=== PATIENT | male | born 1975 | race Caucasian/White ===

== ENCOUNTER 2019-10-09 07:06 | Emergency (ER) | payer SELFPAY ==
[2019-10-09 07:24] VITALS: BP 192/112; PULSE 87; RESP 18; TEMP 36.7; O2SAT 97
--- NOTE | 2019-10-09 07:29 | ED.GENADULT ---
HPI - General Adult General Chief complaint: Neck Pain/Injury Stated complaint: neck pain History of Present Illness HPI narrative: Chele is a 44M with a PMH of HTN, TIA, and TX that presented to the ER with a painful boil on his left occiput. It began after a haircut 1 week ago. It has been becoming progressively larger and more painful. No fevers, chills, N/V CP or SOB or BAKER. Of note his BP is very elevated. He did not take his BP meds this morning. He also has family in town causing a lot of stress. Lastly he did not sleep with the stress/pain. No CP, SOB, decreased urination, or confusion. Related Data Home Medications Medication Instructions Recorded Confirmed fluoxetine 40 mg PO DAILY 10/09/19 10/09/19 hydrochlorothiazide 25 mg PO DAILY 10/09/19 10/09/19 losartan 100 mg PO DAILY 10/09/19 10/09/19 Allergies Allergy/AdvReac Type Severity Reaction Status Date / Time No Known Allergies Allergy Unverified 10/30/15 16:33 Review of Systems Constitutional: Constitutional: Reports as per HPI, Denies chills and Denies fever(s) Eyes: Eyes: Reports no additional eye complaints ENT: Reports system reviewed and no additional complaints, except as documented Cardiovascular: Cardiovascular: Denies chest pain, Denies rapid heart rate and Denies radiating jaw, neck or arm pain Respiratory: Respiratory: Reports no additional respiratory complaints Gastrointestinal: Gastrointestinal: Reports no additional gastrointestinal complaints Musculoskeletal: Musculoskeletal: Reports no additional musculoskeletal complaints Neurologic: Reports system reviewed and no additional complaints, except as documented Psychiatric: Psychiatric: Reports no additional psychiatric complaints Endocrine: Endocrine: Reports no additional endocrine complaints Hematologic/Lymphatic: Hematologic/Lymphatic: Reports no additional hematologic/lymphatic complaints Allergic/Immunologic: Allergic/Immunologic: Reports no additional allergic/immunologic complaints Exam Const: General: no acute distress and alert Orientation/consciousness: patient oriented x3 Limitations: No altered mental status HENMT: Other: Quarter sized, erythematous, raised, tender lesion on the left occiput without drainage. POCUS showed a small fluid collection and cobblestoning. Eyes: Conjunctivae: conjunctivae normal Pupils: Equal, round and reactive pupils present Neck: Neck: normal visual inspection Chest: Chest palpation & inspection: normal inspection of the chest Resp: Effort & Inspection: normal respiratory effort Other: speaks in complete sentences, no coughing or increased WOB. Cardio: Rate: regular rate Rhythm: regular rhythm Heart sounds: no murmurs Other: no lower extremity edema Skin: Other: No rashes except as above Neuro: General: patient oriented x3 and moves all extremities Other: Moves upper extremities normally, no strength of sensory deficits noted Extrem: General: normal to inspection Psych: Mental Status: mental status grossly normal Course Course Emergency Course: Chele was seen and evaluated. Skin lesion is likely a developing abscess from cellulitis vs folliculitis. It was lanced as below. BP was significanlty elevated. However, he no signs/symptoms of HTN emergency and had not been taking his meds and was in pain. It was emphasized to start taking his home BP meds as prescribed [place] and to return for CP, confusion, decreased urine output, BAKER, fevers or chills. Vital Signs Vital signs: Vital Signs Temperature 36.7 C 10/09/19 07:24 Pulse Rate 87 10/09/19 07:24 Respiratory Rate 18 10/09/19 07:24 Blood Pressure 192/112 H 10/09/19 07:24 Pulse Oximetry 97 10/09/19 07:24 Temperature 36.7 C 10/09/19 07:24 Pulse Rate 87 10/09/19 07:24 Respiratory Rate 18 10/09/19 07:24 Blood Pressure 192/112 H 10/09/19 07:24 Pulse Oximetry 97 10/09/19 07:24 Procedures Abscess I/D other: Date of Inc
[2019-10-09] MEDS: LIDO 1%/EPINEPHRINE 1:100,000 20 ML VIAL (07:35)
[2019-10-09] MEDS: KETOROLAC (*BKC) 60 MG/2 ML VIAL 30 MG IM (07:38)
[2019-10-09 07:54] VITALS: BP 183/110; PULSE 80; RESP 18; TEMP 36.6; O2SAT 98
== END 2019-10-09 08:01 | disposition home or self-care (01) ==
PROVIDERS: Emergency Provider Family Medicine; PCP Internal Medicine
DX: L03.90 Cellulitis, unspecified (principal); L73.9 Follicular disorder, unspecified
CPT/HCPCS: 10060; 90471; 99283; J1885

== ENCOUNTER 2020-03-16 13:16 | Outpatient (CLI) | payer SELFPAY ==
[2020-03-16 13:47] LABS: SARS-CoV-2 Ag Negative (Negative)
== END 2020-03-16 13:17 | disposition home or self-care (01) ==
LOC: CHSLAB 13:17
PROVIDERS: PCP Internal Medicine; Visit Provider Internal Medicine
DX: Z20.828 Contact with and (suspected) exposure to other viral communicable diseases (principal)
CPT/HCPCS: 87426

== ENCOUNTER 2020-04-03 20:07 | Emergency (ER) | payer SELFPAY ==
[2020-04-03 20:48] VITALS: BP 188/109; PULSE 97; RESP 20; TEMP 36.4; O2SAT 97
[2020-04-03 21:01] VITALS: BP 164/96
--- NOTE | 2020-04-03 21:48 | ED.SKABFB ---
HPI - Skin/Abscess/Foreign Bdy General Chief complaint: Skin/Abscess/Foreign Body Stated complaint: possible staph Time Seen by Provider: 04/03/20 21:49 Source: patient Mode of arrival: ambulatory Limitations: no limitations History of Present Illness HPI narrative: 45-year-old man comes in today complaining of itching and rash that developed after getting a tattoo on his forearm 9 days ago. Patient states that he got a tattoo on the back of his hand 19 days ago and about the time that to the arm tattoo was done, he developed a few pustular lesions where a red ink was used. Since then he has developed small blister-like lesions with clear fluid where the red ink was used and he states that he has had redness of his skin and tenderness particularly on his proximal forearm. He denies fever, nausea, vomiting or night sweats. He states he has a history of staph infections in his skin in the past. MD complaint: rash Onset (ago): day(s) (9) Tetanus up to date: unsure Location: LUE Severity: moderate Quality: sharp and pruritic Pain Consistency: constant Relieving factors: none Exacerbating factors: palpation Associated symptoms: denies other symptoms Treatments prior to arrival: other ( topical lidocaine spray and hot water) Related Data Home Medications Medication Instructions Recorded Confirmed fluoxetine [Prozac] 40 mg PO DAILY 10/09/19 04/03/20 hydrochlorothiazide 25 mg PO DAILY 10/09/19 04/03/20 losartan 100 mg PO DAILY 10/09/19 04/03/20 aspirin 81 mg PO DAILY 04/03/20 04/03/20 Allergies Allergy/AdvReac Type Severity Reaction Status Date / Time No Known Allergies Allergy Unverified 04/03/20 20:55 Review of Systems Constitutional: Constitutional: Denies chills and Denies fever(s) Cardiovascular: Cardiovascular: Denies chest pain and Denies radiating jaw, neck or arm pain Respiratory: Respiratory: Denies cough and Denies dyspnea Gastrointestinal: Gastrointestinal: Denies abdominal pain, Denies nausea and Denies vomiting Musculoskeletal: Musculoskeletal: Denies arthralgias and Denies joint swelling Integumentary/Breasts: Skin/Breast: Reports pruritus, Reports erythema and Reports rash Neurologic: Denies vertigo, Denies dizziness and Denies syncope Hematologic/Lymphatic: Hematologic/Lymphatic: Denies easy bleeding and Denies easy bruising Allergic/Immunologic: Allergic/Immunologic: Denies lip swelling, Denies throat swelling and Denies tongue swelling PMF Past Medical History Medical History Hypertension Surgical History Surgical History H/O hernia repair Social History Social History Tobacco type: smokeless tobacco Smokeless tobacco user: chewing tobacco Alcohol use details: occasionally Substance use: never Living arrangements: with family Gender identity (if verbalized by the patient): Male Exam Const: General: healthy appearing, no acute distress and alert Orientation/consciousness: patient oriented x3 Eyes: Conjunctivae: conjunctivae normal Pupils: Equal, round and reactive pupils present EOM: EOMs intact bilaterally Resp: Effort & Inspection: normal respiratory effort and not labored Auscultation: clear to auscultation bilaterally, no rales, no rhonchi and no wheezes Cardio: Rate: regular rate Rhythm: regular rhythm Heart sounds: no murmurs Skin: General skin exam: no jaundice and no pallor Other: erosive lesions on his left forearm tattoo or red ink was evidently used. There is no pus or discharge. There if you pustular vesicles however on the dorsum of the left hand and the left lateral arm just above the elbow. There is an area on the radial aspect of the left forearm which is indurated, mildly erythematous, warm but not fluctuant. Neuro: General: patient oriented x3, moves all extremities, no
[2020-04-03] MEDS: predniSONE 20 MG TABLET 60 MG PO (22:04)
[2020-04-03 22:19] VITALS: BP 170/100; PULSE 90; RESP 20; O2SAT 100
== END 2020-04-03 22:21 | disposition home or self-care (01) ==
PROVIDERS: Emergency Provider Emergency Medicine; PCP Internal Medicine
DX: T78.49XA Other allergy, initial encounter (principal); L03.90 Cellulitis, unspecified
CPT/HCPCS: 99283; A9270; J7512

== ENCOUNTER 2020-11-11 13:27 | Emergency (ER) | payer BC, SELFPAY ==
--- NOTE | 2020-11-11 13:28 | ED.SKABFB ---
HPI - Skin/Abscess/Foreign Bdy General Chief complaint: Skin/Abscess/Foreign Body Stated complaint: possible infection in R underarm Time Seen by Provider: 11/11/20 13:35 Source: patient Mode of arrival: ambulatory Limitations: no limitations History of Present Illness HPI narrative: Patient comes in with a moderately sore right underarm, which has been sore for the past 3 days. He shaved his armpits a few days ago [place]. He has developed a number of tender nodes in the right axilla. He says he had one small area that he was able to drain. His draining the area did not seem to resolve the issue or make this better, no modifying factors. I don't feel anything that needs to be drained now. Mostly tender nodes with almost no overlying erythema. Severity scale (1-10): 3 Quality: burning Pain Consistency: constant Relieving factors: none Exacerbating factors: none and movement Context: other (shaving armpit) Associated symptoms: denies other symptoms Treatments prior to arrival: attempted to drain pus at home Related Data Allergies Allergy/AdvReac Type Severity Reaction Status Date / Time No Known Allergies Allergy Unverified 04/03/20 20:55 Review of Systems Constitutional: Constitutional: Reports no additional constitutional complaints Eyes: Eyes: Reports no additional eye complaints ENT: Reports system reviewed and no additional complaints, except as documented Cardiovascular: Cardiovascular: Reports no additional cardiovascular complaints Respiratory: Respiratory: Reports no additional respiratory complaints Gastrointestinal: Gastrointestinal: Reports no additional gastrointestinal complaints Genitourinary: Genitourinary: Reports no additional male genitourinary complaints Musculoskeletal: Musculoskeletal: Reports no additional musculoskeletal complaints Integumentary/Breasts: Skin/Breast: Reports system reviewed and no additional complaints, except as docu Neurologic: Reports system reviewed and no additional complaints, except as documented Psychiatric: Psychiatric: Reports no additional psychiatric complaints Endocrine: Endocrine: Reports no additional endocrine complaints Hematologic/Lymphatic: Hematologic/Lymphatic: Reports no additional hematologic/lymphatic complaints Allergic/Immunologic: Allergic/Immunologic: Reports no additional allergic/immunologic complaints [facility] Past Medical History Medical History Hypertension Surgical History Surgical History H/O hernia repair Family History Family History (Updated 11/11/20 @ 14:22 by Elgin Clements MD) Mother Thyroid disease Father Diabetes mellitus Social History Social History Tobacco type: smokeless tobacco Smokeless tobacco user: chewing tobacco Alcohol use details: occasionally Substance use: never Gender identity (if verbalized by the patient): Male Exam Const: General: no acute distress and alert Orientation/consciousness: patient oriented x3 HENMT: Head: normal to inspection Ears: external ears normal and TM's normal bilaterally General nose exam: Normal external nose present Mouth: Yes Normal oral and palatal mucosa present Throat: posterior oropharynx normal Eyes: Conjunctivae: conjunctivae normal Neck: Neck: normal visual inspection Chest: Chest palpation & inspection: normal inspection of the chest Resp: Effort & Inspection: normal respiratory effort Auscultation: clear to auscultation bilaterally Cardio: Rate: regular rate Rhythm: regular rhythm GI: Auscultation: normal bowel sounds Back/Spine/Pelvis: Back: no CVA tenderness Skin: Other: He has an area under his right axilla that is tender with multiple nodes that are tender. Very little on the surface that has a tiny amount of erythema. He appears to have hidra
[2020-11-11 13:30] VITALS: BP 179/104; PULSE 92; RESP 16; TEMP 36.8; O2SAT 100
[2020-11-11] MEDS: cefTRIAXone 1 GM VIAL IM (13:56)
[2020-11-11 14:19] VITALS: BP 169/101; PULSE 90; RESP 12; TEMP 36.8; O2SAT 100
== END 2020-11-11 14:20 | disposition home or self-care (01) ==
PROVIDERS: Emergency Provider Emergency Medicine; PCP Internal Medicine
DX: L73.2 Hidradenitis suppurativa (principal)
CPT/HCPCS: 96372; 99283; J0696

== ENCOUNTER 2020-12-14 22:40 | Emergency (ER) | payer BC, SELFPAY ==
[2020-12-14 23:06] VITALS: BP 197/139; PULSE 107; RESP 20; TEMP 37.2; O2SAT 99
[2020-12-14] MEDS: LIDOCAINE HCL 1% LOCAL INJ 20 ML VIAL (23:10)
--- NOTE | 2020-12-14 23:30 | ED.WOUNDLAC ---
HPI - Wound/Laceration General Chief Complaint: Wound/Laceration Stated Complaint: cut arm open Source: patient Mode of arrival: ambulatory Limitations: no limitations History of Present Illness HPI narrative: patient presents after he was working at home and had a laceration to his left forearm mid forearm approximately a 5cm in length gaping currently not bleeding up-to-date with his tetanus has good range of motion in his arm and fingers with no numbness or tingling. Onset (ago): hour(s) Extremity Location: Left: forearm ( laceration 5cm in length) Place: home Patient tetanus UTD: Yes Context: accidental Associated symptoms: none Related Data Home Medications Medication Instructions Recorded Confirmed fluoxetine [Prozac] 40 mg PO DAILY 12/14/20 12/14/20 Allergies Allergy/AdvReac Type Severity Reaction Status Date / Time No Known Allergies Allergy Unverified 12/14/20 23:11 Review of Systems Review of Systems: All systems reviewed & are unremarkable except as noted in HPI and below PMFSH Past Medical History Medical History Hypertension Surgical History Surgical History H/O hernia repair Family History Family History Mother Thyroid disease Father Diabetes mellitus Social History Social History Tobacco type: smokeless tobacco Smokeless tobacco user: chewing tobacco Alcohol use details: occasionally Substance use: never Gender identity (if verbalized by the patient): Male Exam Const: General: no acute distress and alert Orientation/consciousness: patient oriented x3 HENMT: Head: normal to inspection Eyes: Conjunctivae: conjunctivae normal Pupils: Equal, round and reactive pupils present Neck: Neck: normal visual inspection Chest: Chest palpation & inspection: normal inspection of the chest Resp: Effort & Inspection: normal respiratory effort Auscultation: clear to auscultation bilaterally Cardio: Rate: regular rate Rhythm: regular rhythm GI: GI Palp: Yes Soft to palpation Urinary Catheter: Urinary Catheter: patent and draining Back/Spine/Pelvis: Back: no CVA tenderness Skin: Other: Gaping laceration 5cm in length her forearm Neuro: General: patient oriented x3 and moves all extremities Speech: normal speech Extrem: General: normal to inspection and no pedal edema Psych: Mental Status: mental status grossly normal Affect: normal affect Course Course Emergency Course: patient received sutures to his left forearm tolerated procedure well Vital Signs Vital signs: Vital Signs Temperature 37.2 C 12/14/20 23:06 Pulse Rate 107 H 12/14/20 23:06 Respiratory Rate 12/14/20 23:06 Blood Pressure 197/139 H 12/14/20 23:06 Pulse Oximetry 99 12/14/20 23:06 Temperature 37.2 C 12/14/20 23:06 Pulse Rate 107 H 12/14/20 23:06 Respiratory Rate 12/14/20 23:06 Blood Pressure 197/139 H 12/14/20 23:06 Pulse Oximetry 99 12/14/20 23:06 Procedures Laceration Laceration 1: Date: 12/14/20 Time: 23:33 Site: upper extremity Side (If applicable): left Size (cm): 5 Description: linear Depth: simple, single layer Local Anesthetic: lidocaine 1% Amount of anesthesia used (mL): 10 Pre-repair: wound explored and irrigated ====== Skin Level ====== Skin layer closed with: vicryl Size (cm): 3-0 ====== Subcutaneous Layer ====== ====== Muscle Layer ====== ====== Tendon Layer ====== Critical Care Time Critical Care Time Critical Care Time: No Discharge Plan Discharge Clinical Impression: Laceration Patient Disposition: Home, Self-Care Condition: Stable Instructions: Antibiotic Form, Laceration (ED) [place]
[2020-12-14 23:45] VITALS: BP 179/121
== END 2020-12-14 23:50 | disposition home or self-care (01) ==
PROVIDERS: Emergency Provider Emergency Medicine; PCP Internal Medicine
DX: S51.812A Laceration without foreign body of left forearm, initial encounter (principal); W45.8XXA Other foreign body or object entering through skin, initial encounter
CPT/HCPCS: 12002; 99282

== ENCOUNTER 2021-01-19 10:23 | Outpatient (CLI) | payer BC, SELFPAY ==
--- NOTE | ~2021-01-19 | XR_ITS ---
XR chest 2V DATE: 01/19/2021 11:05 INDICATION: Chest pain. Diaphoresis. Positive d-dimer. TECHNIQUE: PA and lateral views COMPARISON: 10/30/2015 PA and lateral chest FINDINGS: Mild cardiomegaly. There is prominence of the fissures. There are Natasha B-lines. No pulmonary consolidation or significant pleural effusion or pneumothorax is evident. IMPRESSION: Mild congestive heart failure including pulmonary fissure and subpleural edema Reviewed, dictated and finalized at location [facility]. IMPRESSION: Mild congestive heart failure including pulmonary fissure and subpl eural edema
[2021-01-19 10:43] LABS: Basophils Absolute Auto 0.05 K/mm3 (0.00-0.10); Basophils Percent Auto 0.5 % (0.0-1.0); Eosinophils Absolute Auto 0.14 K/mm3 (0.02-0.50); Eosinophils Percent Auto 1.4 % (1.0-6.0); Hematocrit 46.2 % (40.0-54.0); Hemoglobin 15.9 g/dL (14.0-18.0); Immature Granulocyte Absolute 0.04 K/mm3 (0.00-0.00); Immature Granulocyte Percent A 0.4 % (0.0-0.0); Lymphocytes Absolute Auto 2.16 K/mm3 (1.10-4.50); Lymphocytes Percent Auto 20.8 % (18.0-42.0); Mean Corpuscular HGB Conc 34.4 g/dL (32.0-36.0); Mean Corpuscular Hemoglobin 28.6 pg (27.0-31.0); Mean Corpuscular Volume 83.2 fL (78.0-102.0); Mean Platelet Volume 8.6 fl (8.7-11.0); Monocytes Absolute Auto 0.91 K/mm3 (0.10-0.90); Monocytes Percent Auto 8.8 % (2.0-11.0); Neutrophils Absolute Auto 7.1 K/mm3 (1.7-7.2); Neutrophils Percent Auto 68.1 % (50.0-70.0); Platelet Count Result 353 K/mm3 (150-420); Red Blood Count 5.55 M/mm3 (4.70-6.10); Red Cell Distribution Width 13.8 % (11.6-14.4); White Blood Count 10.4 K/mm3 (4.8-10.8)
--- NOTE | 2021-01-19 10:50 | ECG_ITS ---
Measurements Intervals [place] Rate: 107 P: 66 NM: 160 QRS: -64 QRSD: 124 T: 95 QT: 369 QTc: 494 Interpretive Statements SINUS TACHYCARDIA LEFT ATRIAL ENLARGEMENT INCOMPLETE RIGHT BUNDLE BRANCH BLOCK LEFT ANTERIOR FASCICULAR BLOCK BORDERLINE ST-T WAVE ABNORMALITY- LAT/HIGH LAT LEADS BASELINE ARTIFACT- I, II, III, V1, V4, V6 ABNORMAL ECG Electronically Signed On 01-19-2021 11:06:22 CDT by Camden Doyle D.O.
[2021-01-19 11:03] LABS: D Dimer 0.72 mg/L (0.19-0.50)
[2021-01-19 11:32] LABS: SARS-CoV-2 RNA PCR Negative (Negative)
[2021-01-19 11:41] LABS: Chloride 103 mmol/L (98-108); Potassium 3.1 mmol/L (3.5-5.1); Sodium 142 mmol/L (136-145)
[2021-01-19 11:42] LABS: Alanine Aminotransferase 84 U/L (16-63); Anion Gap 9 mmol/L (8-16); Aspartate Amino Transferase 40 U/L (15-37); Blood Urea Nitrogen 16 mg/dL (7-18); Calcium 8.5 mg/dL (8.5-10.1); Carbon Dioxide 30 mmol/L (21-32); Creatine Kinase 478 U/L (39-308); Estimated Glomerular Filt Rate 53; Glucose 84 mg/dL (70-99); Osmolality Calculated 294 mOsm/kg (285-295)
[2021-01-19 11:43] LABS: NT Pro B Type Natriuretic Pept 4457 pg/mL (0-125)
[2021-01-19 11:44] LABS: Albumin Level 3.7 g/dL (3.4-5.0); Alkaline Phosphatase 74 U/L (46-116); Cholesterol 134 mg/dL (0-200); HDL Direct 31 mg/dL (40-60); LDL Cholesterol Calculated 86 mg/dL (<130); Thyroid Stimulating Hormone 1.64 uIU/mL (0.36-3.74); Total Protein 7.1 g/dL (6.4-8.2); Triglycerides 86 mg/dL (0-150)
[2021-01-24 06:59] LABS: SARS-CoV-2 IgG <1.00 Index (<1.00)
== END 2021-01-19 10:24 | disposition home or self-care (01) ==
LOC: CHSLAB 10:25
PROVIDERS: PCP Internal Medicine; Visit Provider Internal Medicine
DX: Z00.00 Encounter for general adult medical examination without abnormal findings (principal); R06.00 Dyspnea, unspecified; R05.9 Cough, unspecified; Z20.822 Contact with and (suspected) exposure to COVID-19
CPT/HCPCS: 36415; 71046; 80053; 80061; 82550; 82553; 83880; 84443; 84484; 85025; 85380; 86769; 93005; C9803; U0003; U0005

== ENCOUNTER 2021-01-19 11:33 | Emergency (ER) | payer BC, SELFPAY ==
[2021-01-19] VITALS (13 sets, daily range): BP systolic 119–171; BP diastolic 92–127; PULSE 97–116; RESP 18–22; TEMP 36.4–36.9; O2SAT 20–99
--- NOTE | ~2021-01-19 | CT_ITS ---
EXAMINATION: CTA chest PE protocol DATE: 01/19/2021 12:18 INDICATION: Chest pain, diaphoresis. Positive d-dimer.. Stopped taking hypertensive medication 1-2 mo nths ago. TECHNIQUE: Computed tomography angiography (CTA) of the chest was performed with 100 mL Omnipaque-350 intravenous contrast timed to evaluate the pulmonary arteries. Coronal maximum intensity projection 3D-reconstructions were created by the technologist. Automated exposure control and iterative reconst ruction technique were employed. Exam dose: 853.36 mGy-cm total exam DLP. COMPARISON: 01/19/2021 2 view chest FINDINGS: There is diagnostic contrast enhancement of the pulmonary arteries and no evidence of pulmo nary embolism. There is cardiomegaly. No pericardial effusion. Minimal bilateral pleural effusions. Borderline aortic diameter. No hilar or mediastinal mass lesion or lymphadenopathy. There is interstitial prominence including Natasha B-lines and mild prominence of the fissures, consis tent with pulmonary interstitial and subpleural edema. Included skeletal structures are unremarkable. IMPRESSION: Congestive changes including pulmonary interstitial and subpleural edema and minimal ple ural effusions No evidence of pulmonary embolism Reviewed, dictated and finalized at [facility]. Reviewed, dictated and finalized at [facility]. IMPRESSION: Congestive changes including pulmonary interstitial and subpleural edema and minimal pleural effusions No evidence of pulmonary embolism
[2021-01-19] MEDS: ASPIRIN 325 MG ENTERIC TABLET PO (12:19)
[2021-01-19] MEDS: POTASSIUM CHLORIDE 20 MEQ TABLET 40 MEQ PO (12:22)
[2021-01-19] MEDS: METOPROLOL TARTRATE INJ 5 MG/5 ML VIAL 2.5 MG IV PUSH ×2 (12:24→14:10)
[2021-01-19 12:26] LABS: Base Excess ABG -0.5 mmol/L (0-2); Device NASAL CANNULA; Modified Allen's Test Pass; Oxygen Content ABG 21.4 %vol (16.0-22.0); Oxygen Saturation ABG 97.8 % (95-97); Oxyhemoglobin 97.2 % (94-100); PCO2 ABG 34.6 mmHg (35-45); Site Drawn RIGHT RADIAL; Total Hemoglobin 15.6 g/dL (12.0-18.0); pH ABG 7.44 (7.35-7.45)
--- NOTE | 2021-01-19 13:02 | PC.NURSE ---
update given to LOUIE jane
--- NOTE | 2021-01-19 13:18 | ECG_ITS ---
Measurements Intervals [place] Rate: 108 P: 70 IA: 156 QRS: 31 QRSD: 124 T: 73 QT: 420 QTc: 565 Interpretive Statements SINUS TACHYCARDIA POSSIBLE RIGHT ATRIAL ENLARGEMENT POSSIBLE LEFT ATRIAL ENLARGEMENT INTRAVENTRICULAR CONDUCTION DELAY BORDERLINE R WAVE PROGRESSION, ANTERIOR LEADS BORDERLINE T WAVE ABNORMALITY- HIGH LATERAL LEADS BASELINE ARTIFACT- II, III, AVR, AVL, AVF, V1, V5 ABNORMAL ECG Electronically Signed On 01-19-2021 14:28:21 CDT by Camden Doyle D.O.
[2021-01-19 13:59] LABS: Lactic Acid Reflex 1.4 mmol/L (0.4-2.0)
[2021-01-19 14:01] LABS: Troponin I 96.2 ng/L (0.00-60.4)
[2021-01-19] MEDS: FUROSEMIDE INJ 40 MG/4 ML VIAL IV PUSH (14:13)
--- NOTE | 2021-01-19 14:30 | PC.NURSE ---
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
--- NOTE | 2021-01-19 14:31 | ED.CHESTPAIN ---
HPI - Chest Pain General Chief Complaint: Chest Pain Stated Complaint: chest pain Time Seen by Provider: 01/19/21 11:35 Source: patient, RN notes reviewed and old records reviewed Mode of arrival: ambulatory Limitations: no limitations History of Present Illness MD complaint: other (mild Sob persistent and increasing) Onset (ago): day(s) (2) Timing of current episode: episodic, constant, rare, daily, weekly, monthly, stable, increasing, still present, now resolved and other Prior episodes: No Onset: during rest, during exertion and associated with drug use Pain location: substernal Pain radiation: none Severity: moderate Quality: tightness and other (SOB) Exacerbating factors: exertion Context: recent illness Associated symptoms: dyspnea and palpitations Risk Factors Coronary artery disease risk factors: smoking history and hypertension Related Data Home Medications Medication Instructions Recorded Confirmed No Home Medications 01/19/21 01/19/21 Allergies Allergy/AdvReac Type Severity Reaction Status Date / Time No Known Allergies Allergy Verified 01/19/21 12:38 Review of Systems Review of Systems: All systems reviewed & are unremarkable except as noted in HPI and below Cardiovascular: Cardiovascular: Reports chest pain Respiratory: Respiratory: Reports dyspnea PMFSH Past Medical History Medical History Hypertension SOB (shortness of breath) on exertion Surgical History Surgical History H/O hernia repair Family History Family History Mother Thyroid disease Father Diabetes mellitus Social History Social History Tobacco type: smokeless tobacco Smokeless tobacco user: chewing tobacco Alcohol use details: occasionally Substance use: never Gender identity (if verbalized by the patient): Male Exam Const: General: no acute distress, alert and diaphoretic Orientation/consciousness: patient oriented x3 HENMT: Head: normal to inspection Ears: external ears normal and TM's normal bilaterally General nose exam: Normal external nose present and Normal nares present Mouth: Yes moist mucous membranes Eyes: Conjunctivae: conjunctivae normal Pupils: Equal, round and reactive pupils present EOM: EOMs intact bilaterally Neck: Neck: normal visual inspection Chest: Chest palpation & inspection: normal inspection of the chest Resp: Effort & Inspection: tachypneic Auscultation: crackles Cardio: Rate: tachycardic GI: GI Palp: Yes Soft to palpation and No Tenderness to palpation present (GI) Percussion: Yes normal to percussion : General: Yes no CVA tenderness Testes: Testes normal Back/Spine/Pelvis: Back: no CVA tenderness Skin: General skin exam: normal color Rashes: no rashes Neuro: General: patient oriented x3, moves all extremities, no meningeal signs, no focal motor deficits and CN's II-XI intact bilaterally Extrem: General: normal to inspection and no pedal edema Psych: Mental Status: mental status grossly normal Affect: normal affect Attitude: cooperative Thought content: Yes Normal thought content present Course Course Emergency Course: pt was ill in the ED with dyspnea and tachycardia. Reevaluation(s) Reevaluation #1: pt was dyspneic and tachycardic. Date: 01/19/21 Time: 12:40 Vital Signs Vital signs: Vital Signs Pulse Rate 116 H 01/19/21 11:37 Respiratory Rate 21 H 01/19/21 11:37 Blood Pressure 171/127 H 01/19/21 11:37 Pulse Oximetry 99 01/19/21 11:37 Temperature 36.4 C 01/19/21 11:45 Pulse Rate 112 H 01/19/21 14:10 Respiratory Rate 22 H 01/19/21 12:30 Blood Pressure 142/112 H 01/19/21 12:30 Pulse Oximetry 98 01/19/21 12:30 MDM - Chest Pain Differential Diagnosis Differential diagnosis: Likely a
[2021-01-19] MEDS: NITROGLYCERIN SL 0.4 MG TABLET SUBLINGUAL (14:36)
[2021-01-19 15:45] LABS: Magnesium 2.1 mg/dL (1.8-2.4)
[2021-01-19] MEDS: METOPROLOL TARTRATE INJ 5 MG/5 ML VIAL IV PUSH (16:49)
== END 2021-01-19 18:50 | disposition short-term general hospital (02) ==
PROVIDERS: Emergency Provider Emergency Medicine; PCP Internal Medicine
DX: I50.41 Acute combined systolic (congestive) and diastolic (congestive) heart failure (principal); R79.9 Abnormal finding of blood chemistry, unspecified
CPT/HCPCS: 36415; 36600; 71275; 82805; 83605; 83735; 84484; 93005; 96374; 96375; 96376; 99285; A9270; J1940; Q9967

== ENCOUNTER 2021-01-19 20:47 | Inpatient (IN) | payer BC, SELFPAY ==
[2021-01-19] VITALS (9 sets, daily range): BP systolic 144–149; BP diastolic 104–119; PULSE 93–105; RESP 18–22; TEMP 36.6–37.1; O2SAT 95–98; BMI 33.0
[2021-01-19] MEDS: NITROGLYCERIN SL 0.4 MG TABLET SUBLINGUAL ×3 (20:22→20:36)
[2021-01-19] MEDS: HEPARIN SODIUM 5,000 UNITS/ML VIAL 4000 UNITS IV PUSH (20:45)
[2021-01-19] MEDS: MORPHINE SULFATE (*CRX) 2 MG/ML INJ IV PUSH ×2 (20:45→21:25)
[2021-01-19 20:49] LABS: Basophils Percent Auto 0.3 % (0.2-1.2); Eosinophils Absolute Auto 0.2 K/mm3 (0-0.3); Eosinophils Percent Auto 1.3 % (0-4.4); Hematocrit 44.1 % (42.0-52.0); Hemoglobin 15.5 g/dL (14.0-18.0); Immature Granulocyte Absolute 0.04 K/mm3 (0.00-0.031); Immature Granulocyte Percent A 0.3 % (0-0.5); Lymphocytes Percent Auto 28.3 % (18.3-44.2); Mean Corpuscular HGB Conc 35.1 g/dl (32-36); Mean Corpuscular Hemoglobin 29.2 pg (26-34); Mean Corpuscular Volume 83.1 fl (80-100); Mean Platelet Volume 8.7 fl (7.4-10.4); Monocytes Absolute Auto 0.9 K/mm3 (0.1-0.6); Monocytes Percent Auto 7.4 % (2.6-8.5); Neutrophils Absolute Auto 7.5 K/mm3 (1.3-6.7); Neutrophils Percent Auto 62.4 % (45.5-73.1); Platelet Count Result 369 k/mm3 (150-375); Red Blood Count 5.31 M/mm3 (4.6-6.20); Red Cell Distribution Width 14.1 % (11.5-14.5)
[2021-01-19] MEDS: NITROGLYCERIN OINTMENT 1 INCH DOSE TRANSDERM (20:49)
--- NOTE | 2021-01-19 20:49 | PM.IMHP ---
H&P: HPI History of Present Illness Date/Time: 01/19/21 20:49 this is a 45-year-old male patient who has a past medical history of hypertension. The patient stated he has not taken any of his medication for couple months. The patient stated that he was trying to get his losartan feel today and was told that he needed to be seen. The patient stated that he had some labs drawn today and was told to go to the emergency room because they were abnormal. The patient's D-dimer was noted to be 0.72. Creatinine 1.44. First troponin was 9.0 on a scale from 0-60.4 and 2nd troponin was 96.2. The patient was a direct admit from [facility] per Dr. Morley. The patient's blood pressure was significantly elevated. It was reported that the patient did receive nitroglycerin at [facility]. The patient stated that he was short of breath and has been short of breath for quite some time. The patient stated he was told to go to the ER at [place] because he was having a heart attack. Cardiac allergy had been notified prior to coming to [facility]. The patient stated that he was not given any aspirin at [facility]. When the patient came to IMU from [place] the patient was initially pain-free. However the nurse to me that the patient started to have severe crushing midsternal chest pain. The patient was diaphoretic and nauseated. We repeated a stat EKG and it looks like the patient has ST elevation in leads V3 through V6. I sent the EKG to ER and my collaborative. I also called Dr. Albright and sent pictures of the EKG. A STEMI alert was called. The patient was given IV morphine, 3 baby aspirin and IV heparin 4000 units. Patient stated that this helped. The blending supervisor was notified in ER was sent the EKG. The patient is being admitted for inpatient status on the date of service of 01/19/2021. Chief Complaint: Chest pain Review of Systems Review of Systems: All systems reviewed & are unremarkable except as noted in HPI and below Constitutional: Constitutional: Reports as per HPI and Reports no additional constitutional complaints Eyes: Eyes: Reports as per HPI and Reports no additional eye complaints ENT: Reports system reviewed and no additional complaints, except as documented and Reports Normal hearing present Cardiovascular: Cardiovascular: Reports no additional cardiovascular complaints Respiratory: Respiratory: Reports no additional respiratory complaints and Reports no additional respiratory complaints Gastrointestinal: Gastrointestinal: Reports as per HPI and Reports no additional gastrointestinal complaints Musculoskeletal: Musculoskeletal: Reports no additional musculoskeletal complaints Integumentary/Breasts: Skin/Breast: Reports system reviewed and no additional complaints, except as docu and Reports as per HPI Neurologic: Reports system reviewed and no additional complaints, except as documented, Reports as per HPI and Reports Normal hearing present Psychiatric: Psychiatric: Reports no additional psychiatric complaints and Reports as per HPI Endocrine: Endocrine: Reports no additional endocrine complaints Hematologic/Lymphatic: Hematologic/Lymphatic: Reports no additional hematologic/lymphatic complaints Allergic/Immunologic: Allergic/Immunologic: Reports no additional allergic/immunologic complaints [facility] Past Medical History Medical History (Updated 01/19/21 @ 21:07 by Maureen Cruz NP) Hypertension SOB (shortness of breath) on exertion Surgical History Surgical History (Updated 01/19/21 @ 20:55 by Maureen Cruz NP) H/O hernia repair H/O knee surgery On the right Family History Family History (Updated 01/19/21 @ 20:56 by Maureen Cruz NP) Mother Thyroid disease Father Diabetes mellitus Cancer Social History Social History (Updated 01/19/21 @ 21:01 by Maureen Cruz NP) Social History: The patient is and has 2 children. 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 The patient is
[2021-01-19 21:09] LABS: Alanine Aminotransferase 72 U/L (4-50); Albumin Level 4.1 g/dL (3.5-5.1); Alkaline Phosphatase 68 U/L (38-126); Anion Gap 10 mmol/L (8-16); Aspartate Amino Transferase 51 U/L (17-59); Bilirubin,Total 1.3 mg/dL (0.2-1.3); Blood Urea Nitrogen 15 mg/dL (9-20); Calcium 8.7 mg/dL (8.4-10.2); Carbon Dioxide 26 mmol/L (22-30); Chloride 103 mmol/L (98-107); Estimated Glomerular Filt Rate > 60; Glucose 124 mg/dL (65-110); Potassium 3.5 mmol/L (3.4-5.0); Sodium 139 mmol/L (137-145)
--- NOTE | 2021-01-19 21:10 | ADMGEN ---
This patient, Chele Roberts, was admitted to IMU Room 232-01 on 01/19/21 at 1920. Patient/family oriented to hospital policies and general routines including ID bracelet, bed and alarms, visiting hours, pain management, procedures, bathroom and other care routines, personal items, smoking policy, room service/diet, and visiting hours. Information on how to activate the Rapid Response Team has been discussed. Patient/Family are encouraged to report perceived risks to care and to ask questions if they do not understand what they are told or what they should do.
--- NOTE | 2021-01-19 21:17 | PC.NURSE ---
Patient called me in to the room at 2014 stating he was having 5/10 chest pain, sudden onset with diaphoresis and shortness of breath. Maureen Cruz COAT PADDER here. Stat EKG done and shows ST elevation in V3-V6. Ntg SL given at 2021 with a B/P 149/115, HR 95, O2 sat 97% on room air. Maureen Cruz COAT PADDER notified the can stacker backshoe person with these findings.
[2021-01-19 21:24] LABS: Troponin I 0.073 ng/mL (0.000-0.034)
--- NOTE | 2021-01-19 21:24 | PC.NURSE ---
at 2026, continues to have 5/10 chest pain. B/P 149/111, HR 96, O2 sat 97%. Ntg SL given.
--- NOTE | 2021-01-19 21:25 | WPDMODSED ---
Moderate Sedation Note-Pt Data Patient Data Allergies Allergy/AdvReac Type Severity Reaction Status Date / Time No Known Allergies Allergy Verified 01/19/21 12:38 Home Medications Medication Instructions Recorded Confirmed Type No Home Medications 01/19/21 01/19/21 History Current Medications: Active Medications Morphine Sulfate (Morphine Sulfate (*Crx) 2 Mg/Ml Inj) 2 mg IV PUSH Q4H PRN PRN Reason: Pain Rated 7-10 Morphine Sulfate (Morphine Sulfate (*Crx) 2 Mg/Ml Inj) 2 mg IV PUSH Q30M PRN PRN Reason: Pain Rated 7-10 Nitroglycerin (Nitroglycerin Ointment 1 Inch Dose) 1 inch TRANSDERM Q6HR JUMANA Last Admin: 01/19/21 20:49 Dose: 1 inch Documented by: Nitroglycerin (Nitroglycerin Sl 0.4 Mg Tablet) 0.4 mg SUBLINGUAL Q5MIN PRN PRN Reason: Chest Pain Ondansetron HCl (Ondansetron Inj 4 Mg/2 Ml Vial) 4 mg IV PUSH Q6H PRN PRN Reason: Nausea And Vomiting Sedation/Anesthesia: No previous sedation/anesthesia problems (including family history). [facility] Past Medical History Medical History Hypertension SOB (shortness of breath) on exertion Surgical History Surgical History H/O hernia repair H/O knee surgery On the right Family History Family History Mother Thyroid disease Father Diabetes mellitus Cancer Social History Social History (Updated 01/19/21 @ 21:01 by Maureen Cruz NP) Social History: The patient is and has 2 children. 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 The patient is a full code. He stated that his would be the durable power assistant district attorney for healthcare. The patient uses chewing tobacco. He does not use any alcohol or illicit drugs. Tobacco type: smokeless tobacco Smokeless tobacco user: chewing tobacco Alcohol use details: occasionally Substance use: never Gender identity (if verbalized by the patient): Male Mod Sed Physical Exam Physical Exam Pre Procedural Exam: Normal: Appearance, Eyes, Ears, Nose, Neck, Throat, Airway, Lungs, Heart Size, Heart Rate, Heart Rhythm, Neuro Exam, Abdomen, Liver, Kidneys, Spleen, Breasts, Genitalia, Extremities and Skin Hours since solid foods: 8 Hours since liquid intake: 8 Mallampati Classification: class 1 Internal Medicine - PN: Obj Da Vital Signs Vital Signs: Vital Signs - 24 hr 01/19/21 19:25 01/19/21 20:20 Temperature 37.1 C 36.8 C Pulse Rate 105 H 102 H Respiratory Rate 18 20 Blood Pressure 149/119 H 149/115 H Pulse Oximetry 98 98 Meds/Results Medications: Active Medications Generic Name Dose Route Start Last Admin Trade Name Freq PRN Reason Stop Dose Admin Morphine Sulfate 2 mg 01/19/21 20:47 Morphine Sulfate (*Crx) 2 Mg/Ml Inj IV PUSH Q4H PRN Pain Rated 7-10 Morphine Sulfate 2 mg 01/19/21 21:21 Morphine Sulfate (*Crx) 2 Mg/Ml Inj IV PUSH Q30M PRN Pain Rated 7-10 Nitroglycerin 1 inch 01/19/21 20:20 01/19/21 20:49 Nitroglycerin Ointment 1 Inch Dose TRANSDERM 1 inch Q6HR JUMANA Administration Nitroglycerin 0.4 mg 01/19/21 20:25 Nitroglycerin Sl 0.4 Mg Tablet SUBLINGUAL Q5MIN PRN Chest Pain Ondansetron HCl 4 mg 01/19/21 20:47 Ondansetron Inj 4 Mg/2 Ml Vial IV PUSH Q6H PRN Nausea And Vomiting Labs CBC & Chem 7: 01/19/21 20:43 01/19/21 20:43 Labs: Laboratory Results - last 24 hr 01/19/21 01/19/21 01/19/21 20:43 20:43 20:43 WBC 12.0 H RBC 5.31 Hgb 15.5 Hct 44.1 MCV 83.1 MCH 29.2 MCHC 35.1 RDW 14.1 Plt Count 369 MPV 8.7 Immature Gran % (Auto) 0.3 Neut % (Auto) 62.4 Lymph % (Auto) 28.3 [place] % (Auto) 7.4 Eos % (Auto) 1.3 Baso % (Auto) 0.3 Lymph # (Auto) 3.40 H [place] # (Auto) 0.9 H Eos # (Auto) 0.2 Baso # (Auto) 0.0 Abs Immat Gran (auto) 0.04 H Absolute Neuts
--- NOTE | 2021-01-19 21:25 | PC.NURSE ---
at 203, continues to have 4/5 chest pain with diaphoresis and bilateral arm numbness. NTG SL given.
--- NOTE | 2021-01-19 21:26 | WPDHPUPDATE1 ---
History and Physical Update Update Date/Time: 01/19/21 21:26 History and Physical has been reviewed, including an updated exam of the patient. There are NO changes in the patient's condition. Risks, benefits, and alternatives have been discussed and questions answered. Patient agrees to proceed with procedure.
--- NOTE | 2021-01-19 21:27 | WPDCARDPROC ---
Cardiac Cath Procedure Note Date of procedure:: 01/19/21 Performing physician:: Antonio Gray MD Date of service 01/19/2021 Indication:: anterior STEMI Brief clinical history:: 45-year-old patient history of diabetes, hypertension CHF postop taking his medicines. Apparently he went to get his losartan refilled and was complaining of shortness of breath. Blood work was done showed elevated troponins and elevated creatinine. Was told to go to the emergency room at [place]. His blood pressure there was significantly elevated as well. He was transferred to [facility] and then on arrival here he started to have central crushing chest pain. EKG was done shows anterior ST elevation which was changed from earlier EKGs. Elevated D-dimer Procedure Procedure performed:: 1-Moderate sedation that started at 2136 pm and ended at 2229 pm total duration 53 minutes using 2mg of Versed and 75mcg fentanyl. The registered nurse was luis su. 2-Selective left and right coronary angiogram. 3-Deployment of a drug-eluting stent 3 x 23 Xience at the junction of the mid to distal LAD. Deployment under nominal pressure for 25 seconds. 3-Left heart catheterization with measurement of LVEDP and measurement of gradient across aortic valve. 4-Right common femoral arterial angiogram. 5-Deployment of 6 [place] Angio-Seal. Sedation/Medication given:: Moderate sedation. Access site:: Right common femoral artery. Estimated blood loss:: 10cc Procedure note:: After informed consent patient was brought in to laboratory apparatus glass grinder with the was draped and prepped in usual manner. Moderate sedation was given and the right groin was infiltrated using 1% lidocaine. Five [place] sheath was obtained using micropuncture needle and the modified Seldinger technique. Selective left coronary angiogram was done using JL4 catheter with the tip of the catheter placed in the left main coronary artery. After that we went with a guide catheter CLS 3.5. I tried to wire the LAD using a luge coronary wire without success. Then after that used Floor Coverer 150 wire and managed to wire the LAD with difficulty. I had to create 3 cares on the wire to selectively pass it through the LAD. Wire was passed to distal LAD. Balloon angioplasty of distal LAD was done using 2.5 x 15 balloon with 3 inflations each under nominal pressure for 25 seconds. Then deployed a drug-eluting stent 3 x 23 Xience under normal pressure for 25 seconds. After that I noticed that there is total occlusion of the distal most end of the LAD and at that time i.e. just past the stent balloon without inflating it to the distal LAD and that managed to open up the artery. I suspect that there was a clot that has migrated to the distal LAD.Selective right coronary angiogram was done using JR4 catheter with the tip of the catheter placed to the right coronary artery. After that 5 [place] pigtail catheter was advanced across the aortic valve into the left ventricle with measurement of LVEDP and measurement of gradient across aortic valve. Right common femoral arterial angiogram was done. Findings:: 1- left coronary artery is a large artery that divides into large LAD, large circumflex artery A large ramus. Left main is free of disease 2- left anterior descending artery is a large artery that runs and wraps around the apex. it is totally occluded at the junction of the mid to distal segment with ANAYA flow 0. In the mid segment there is a diffuse 30% plaque. There is a very large diagonal branch takes off from the LAD right after it takes off from the left main 3- leftcircumflex artery is a large artery. in the mid segment gives rise to a large OM1 branch that looks unremarkable. Left circumflex artery after the OM is relatively small and has 70% lesion and then another 60% lesion distally. 4- The ramus intermedius is medium in size due with minimal irregularities. 4- right coronary artery is Large artery and dominant and has minimal irregularities. 5- LV
--- NOTE | 2021-01-19 21:27 | PC.NURSE ---
at 2044, Heparin 4000u IVP given with 3 baby ASA and Morphine 2 MG IVP per orders.
--- NOTE | 2021-01-19 21:28 | WPDCARDPROC ---
Cardiac Cath Procedure Note Date of procedure:: 01/19/21 Performing physician:: Antonio Gray MD Indication:: anterior STEMI Procedure Procedure performed:: 1-Moderate sedation that started at and ended at using mg of Versed and mg fentanyl. The registered nurse was 2-Selective left and right coronary angiogram. 3-Left heart catheterization with measurement of LVEDP and measurement of gradient across aortic valve. 4-Right common femoral arterial angiogram. 5-Deployment of 6 [place] Angio-Seal. Sedation/Medication given:: Moderate sedation. Access site:: Right common femoral artery. Estimated blood loss:: 10cc Procedure note:: After informed consent patient was brought in to denture laboratory technician with the was draped and prepped in usual manner. Moderate sedation was given and the right groin was infiltrated using 1% lidocaine. Five [place] sheath was obtained using micropuncture needle and the modified Seldinger technique. Selective left coronary angiogram was done using JL4 catheter with the tip of the catheter placed in the left main coronary artery. Selective right coronary angiogram was done using JR4 catheter with the tip of the catheter placed to the right coronary artery. After that 5 [place] pigtail catheter was advanced across the aortic valve into the left ventricle with measurement of LVEDP and measurement of gradient across aortic valve. Right common femoral arterial angiogram was done. Findings:: 1- left coronary artery is a large artery that divides into large LAD, large circumflex artery. Left main is 2- left anterior descending artery is a large artery that runs and wraps around the apex. 3- leftcircumflex artery is a large artery 4- right coronary artery is 5- LVEDP was and no gradient across aortic valve. 6- opening arterial pressure was and closing pressure was 7- right femoral artery angiogram shows no significant disease in the right common femoral artery.
--- NOTE | 2021-01-19 21:28 | PC.NURSE ---
at 2054. Patient transferred to ICU 10 via bed. Awaiting on cardiac cath lab technologist to arrive.
--- NOTE | 2021-01-19 21:30 | PC.NURSE ---
at 2114, Ashanti Roberts () notified of changes. All questions answered.
[2021-01-19 21:44] LABS: Partial Thromboplastin Time 28.8 SECONDS (22.3-36.8); Prothrombin Time 13.1 Seconds (11.1-14.7)
--- NOTE | 2021-01-19 22:58 | PM.CNCAR ---
Assessment and Plan Additional Plan 1- Anterior STEMI with totally occluded distal LAD status post stenting. 2- elevated LVEDP. 3- history of hypertension noncompliant with medications. 4- history of CHF not compliant with medications. 5- history of diabetes not compliant with medications. this is 45-year-old patient noncompliant who presents to the hospital because of abnormal blood work. Was having shortness of breath on exertion. Upon arrival to [facility] and was found to have chest pain that started on arrival here and the EKG confirmed anterior ST elevations. Was rushed to the [facility] and received drug-eluting stent to totally occluded distal LAD. was found to have elevated LVEDP. - Will continue aspirin and Brilinta. - aggressive risk factor modification for CAD. - administer the IV Lasix 40 mg x 1. - continue normal saline at 75 cc an hour for a total of 1 L to wash the dye. - high intensity statin. - I will hold off starting him on hydrochlorothiazide and losartan because of concern about kidney function. We will start him overnight on Norvasc and Coreg. - echocardiogram. History of Present Illness History of Present Illness Consult date/time: date of nydemrm61/08/21 22:58 Requesting physician: Maureen Cruz NP Consult reason: chest pain Reason For Visit: CHF Narrative: 45-year-old patient history of diabetes, hypertension CHF not compliant with taking his medicines. Apparently he went to get his losartan refilled and was complaining of shortness of breath. Blood work was done showed elevated troponins and elevated creatinine. Was told to go to the emergency room at [place]. His blood pressure there was significantly elevated as well. He was transferred to [facility] and then on arrival here he started to have central crushing chest pain. EKG was done shows anterior ST elevation which was changed from earlier EKGs. Elevated D-dimer. was taken to the quality lab [facility]oc where the distal LAD was totally occluded and received drug-eluting stent at the junction of the mid to distal segment using 3 x 23 drug-eluting stent. He does have Occlusive disease in the distal left circumflex artery that is relatively small in size. elevated LVEDP at 40 mm Hg. LV angiogram was not done because of significant dye use. Review of Systems Constitutional: Constitutional: Denies chills, Reports fatigue, Denies fever(s), Denies poor appetite and Reports weakness Eyes: Eyes: Denies eye discharge, Denies loss of vision, Denies eye pain and Denies photophobia ENT: Denies dizziness, Denies epistaxis, Denies nasal congestion and Denies sore throat Cardiovascular: Cardiovascular: Reports chest pain, Reports diaphoresis, Denies syncope, Denies pedal edema, Denies leg edema, Denies palpitations, Denies dyspnea, Denies dyspnea on exertion and Denies orthopnea Respiratory: Respiratory: Denies cough, Denies dyspnea, Reports dyspnea on exertion and Denies wheezing Gastrointestinal: Gastrointestinal: Denies abdominal pain, Denies diarrhea, Denies nausea and Denies vomiting Genitourinary: Genitourinary: Denies hematuria, Denies genital lesions and Denies dysuria Musculoskeletal: Musculoskeletal: Denies arthralgias, Denies joint swelling and Denies numbness Integumentary/Breasts: Skin/Breast: Denies pruritus and Denies rash Neurologic: Denies dizziness, Denies syncope, Denies loss of vision and Denies numbness Psychiatric: Psychiatric: Denies anxiety and Denies depression Endocrine: Endocrine: Denies cold intolerance, Denies heat intolerance and Denies palpitations Hematologic/Lymphatic: Hematologic/Lymphatic: Denies easy bleeding and Denies easy bruising Allergic/Immunologic: Allergic/Immunologic: Denies urticaria and Denies wheezing PMFSH Past Medical History Medical History Hypertension SOB (shortness of breath) on exertion Surgical History Surgical History (Reviewed
--- NOTE | 2021-01-19 23:13 | ECG_ITS ---
Measurements Intervals [place] Rate: 99 P: 61 SD: 199 QRS: -31 QRSD: 125 T: 53 QT: 401 QTc: 515 Interpretive Statements SINUS RHYTHM POSSIBLE LEFT ATRIAL ENLARGEMENT LEFT AXIS DEVIATION INTRAVENTRICULAR CONDUCTION DELAY DELAYED PRECORDIAL R/S TRANSITION ANTEROLATERAL ST ELEVATION MYOCARDIAL INJURY- ACUTE SUBTLE ST ELEVATION IN HIGH LATERAL LEADS BASELINE ARTIFACT- II, III, AVF, V2 ABNORMAL ECG Electronically Signed On 01-20-2021 8:28:41 CDT by Camden Doyle D.O.
--- NOTE | 2021-01-19 23:36 | PC.NURSE ---
sheri called and updated per patient condition.
[2021-01-20] VITALS (21 sets, daily range): BP systolic 129–157; BP diastolic 91–116; PULSE 85–117; RESP 14–23; TEMP 36.6–37; O2SAT 95–100
--- NOTE | 2021-01-20 | ECHO_ITS ---
Patient Info Name: Chele Roberts Age: 45 years : 1975 Gender: Male Ht: 70 in Wt: 230 lbs BSA: 2.30 m2 HR: 94 bpm BP: 148 / 104 mmHg Heart Rhythm: Sinus Rhythm Technical Quality: Good Exam Date: 01/20/2021 8:10 AM [facility] 10 Patient Status: Inpatient Admit Date: 01/19/2021 Staff Ordering Physician: Maureen Cruz NP Sanding Machine Tender: Karen Bailey RDCS Attending Provider: Gaye Mcdonald MD Referring Physician: Anthony MACKAY; Exam Type: CA echo doppler color flow Study Info Indications - s/p stemi cad s/p cath elevated trop chest pain Complete two-dimensional, color flow and Doppler transthoracic echocardiogram is performed. Summary 1. Complete two-dimensional, color flow and Doppler transthoracic echocardiogram is performed. 2. Left ventricular chamber dimension is severely enlarged. 3. Left ventricular systolic function is severely reduced, estimated at 25-30% with akinesis of the apex, apical lateral, apical anterior, apical septal, mid anterior, and mid anterolateral tang. . 4. There is mildly increased left ventricular wall thickness. 5. Left atrial chamber dimension is severely enlarged. 6. Right atrial chamber dimension is moderately enlarged. 7. There is trace tricuspid valve regurgitation. 8. Mild pulmonary hypertension, estimated pulmonary arterial systolic pressure is 35 mmHg. 9. There is mild mitral valve regurgitation. Left Ventricle Left ventricular chamber dimension is severely enlarged. Left ventricular systolic function is severely reduced, estimated at 25-30% with akinesis of the apex, apical lateral, apical anterior, apical septal, mid anterior, and mid anterolateral tang. . There is mildly increased left ventricular wall thickness. The left ventricular diastolic function is grade II diastolic dysfunction. There is no thrombus visualized in the left ventricle. Right Ventricle Right ventricular chamber dimension is normal. Right ventricular systolic function is normal. Left Atria Left atrial chamber dimension is severely enlarged. Right Atria Right atrial chamber dimension is moderately enlarged. Aortic Valve The aortic valve is not well visualized. There is no aortic valve stenosis. There is no aortic valve regurgitation. Pulmonic Valve The pulmonic valve is normal. There is trace pulmonic regurgitation. Mitral Valve The mitral valve has normal leaflets. There is mild mitral valve regurgitation. Tricuspid Valve The tricuspid valve leaflets are normal. There is trace tricuspid valve regurgitation. Mild pulmonary hypertension, estimated pulmonary arterial systolic pressure is 35 mmHg. Pericardium/Pleural The pericardium appears normal. There is no pericardial effusion. Inferior Vena Cava Dilated inferior vena cava with <50% collapse upon inspiration consistent with elevated right atrial pressure, 10 mmHg. Aorta The aortic root size at the sinus of Valsalva is normal. There is mild aortic atherosclerosis. Left Ventricular Outflow Tract Name Value Normal LVOT 2D LVOT Diameter 2.2 cm LVOT Doppler
[2021-01-20] MEDS: SODIUM CHLORIDE 0.9% IV 1,000 ML 75 ML IV CONT (00:17)
[2021-01-20] MEDS: FUROSEMIDE INJ 40 MG/4 ML VIAL IV PUSH ×3 (00:17→19:32)
[2021-01-20 00:34] LABS: Hemoglobin A1C 5.5 % (<5.7)
[2021-01-20] MEDS: carvediloL 3.125 MG TABLET PO ×2 (01:48→21:52)
[2021-01-20] MEDS: amLODIPine BESYLATE 5 MG TABLET PO (03:19)
--- NOTE | 2021-01-20 04:14 | PC.NURSE ---
This patient, Chele Roberts, was received from [facility] on 01/19/21 at 2055. Patient/family oriented to unit policies and routines
[2021-01-20 04:29] LABS: Basophils Absolute Auto 0.1 K/mm3 (0.0-0.1); Basophils Percent Auto 0.5 % (0.2-1.2); Eosinophils Absolute Auto 0.1 K/mm3 (0-0.3); Eosinophils Percent Auto 1.1 % (0-4.4); Hematocrit 44.2 % (42.0-52.0); Hemoglobin 15.5 g/dL (14.0-18.0); Immature Granulocyte Absolute 0.05 K/mm3 (0.00-0.031); Immature Granulocyte Percent A 0.5 % (0-0.5); Lymphocytes Absolute Auto 2.38 K/mm3 (0.9-3.2); Mean Corpuscular HGB Conc 35.1 g/dl (32-36); Mean Corpuscular Hemoglobin 28.9 pg (26-34); Mean Corpuscular Volume 82.5 fl (80-100); Mean Platelet Volume 8.8 fl (7.4-10.4); Monocytes Absolute Auto 0.8 K/mm3 (0.1-0.6); Neutrophils Absolute Auto 6.9 K/mm3 (1.3-6.7); Neutrophils Percent Auto 66.9 % (45.5-73.1); Platelet Count Result 333 k/mm3 (150-375); Red Blood Count 5.36 M/mm3 (4.6-6.20); Red Cell Distribution Width 14.1 % (11.5-14.5); White Blood Count 10.3 K/mm3 (4.5-10.0)
[2021-01-20 04:47] LABS: Lactic Acid Reflex 1.3 mmol/L (0.7-2.1)
[2021-01-20 04:53] LABS: Alanine Aminotransferase 76 U/L (4-50); Alkaline Phosphatase 66 U/L (38-126); Anion Gap 9 mmol/L (8-16); Aspartate Amino Transferase 151 U/L (17-59); Bilirubin,Total 1.6 mg/dL (0.2-1.3); Blood Urea Nitrogen 14 mg/dL (9-20); Calcium 8.5 mg/dL (8.4-10.2); Carbon Dioxide 24 mmol/L (22-30); Chloride 104 mmol/L (98-107); Estimated CRCL calculation 98 ml/min; Estimated Glomerular Filt Rate > 60; Glucose 124 mg/dL (65-110); Lactate Dehydrogenase 809 U/L (313-618); Potassium 3.1 mmol/L (3.4-5.0); Sodium 137 mmol/L (137-145)
[2021-01-20] MEDS: LORazepam INJ (*CRX) 2 MG/ML VIAL 0.5 MG IV PUSH (06:33)
--- NOTE | 2021-01-20 07:00 | ECG_ITS ---
Measurements Intervals [place] Rate: 99 P: 52 [place]: 187 QRS: -45 QRSD: 128 T: 77 QT: 451 QTc: 581 Interpretive Statements SINUS RHYTHM LEFT ATRIAL ENLARGEMENT LEFT VENTRICULAR HYPERTROPHY LEFT ANTERIOR FASCICULAR BLOCK ANTEROLATERAL MYOCARDIAL INJURY- PROBABLY RECENT ABNORMAL ECG Electronically Signed On 01-20-2021 8:30:52 CDT by Camden Doyle D.O.
[2021-01-20 08:50] LABS: Glucose Point of Care 91 mg/dl (65-105)
[2021-01-20] MEDS: TICAGRELOR 90 MG TABLET PO ×2 (08:50→21:52)
[2021-01-20] MEDS: ASPIRIN 81 MG ENTERIC TABLET PO (08:50)
[2021-01-20] MEDS: ATORVASTATIN 40 MG TABLET PO (08:50)
--- NOTE | 2021-01-20 11:55 | WPDCNINT ---
Assessment and Plan Assessment and plan (1) STEMI (ST elevation myocardial infarction): Code(s): I21.3 - ST elevation (STEMI) myocardial infarction of unspecified site Status: Acute Assessment and Plan: Status post PCI and stent placement Continue dual antiplatelet therapy aspirin Continue Coreg, Lipitor, and start ARB Telemetry monitoring Echo pending (2) CHF (congestive heart failure): Code(s): I50.9 - Heart failure, unspecified Status: Acute Assessment and Plan: Continue Lasix Check echo Chest x-ray reviewed Replace low potassium (3) Hypertension: Code(s): I10 - Essential (primary) hypertension Status: Acute Assessment and Plan: Coreg losartan and Norvasc (4) Tobacco abuse: Code(s): Z72.0 - Tobacco use Status: Acute Assessment and Plan: Patient was counseled to quit chewing tobacco Additional Plan DVT prophylaxis-patient will ambulate SCDs in bed Transfer out of ICU today Oncology Physician Assistant Consult Note Consult date: 01/20/21 Time Seen: 11:45 HPI: Chele Roberts is a 45 year old male with a past medical history of hypertension but not on any medication for couple months. Patient went to his PCP to get his prescriptions filled through ordered lab work as an outpatient. Patient was called back and asked to come to ER. Patient presented to ER with chief complaint of shortness of breath. Workup showed elevated troponin level along with BNP. EKG showed ST elevation in anterior leads. Chest CTA was negative for PE but did show old congestive heart failure with edema and effusions. Patient was diagnosed with STEMI and was transferred to [facility]. 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 He had elevated LVEDP of 40 for which he was given Lasix. Post cardiac catheterization patient was admitted to ICU for further evaluation management. At this time patient states he feels better than yesterday and his breathing is better. He still feels short of breath and has a dry cough. Denies any chest pain. Denies any orthopnea or PND. He states that he has been short of breath for last 1 month. Denies any fever. Not vaccinated against COVID All the systems were reviewed and were negative . Review of Systems Review of Systems: All systems reviewed & are unremarkable except as noted in HPI and below (HPI) PMFSH Past Medical History Medical History Hypertension SOB (shortness of breath) on exertion Surgical History Surgical History H/O hernia repair H/O knee surgery On the right Family History Family History Mother Thyroid disease Father Diabetes mellitus Cancer Social History Social History Social History: The patient is and has 2 children. 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 The patient is a full code. He stated that his would be the durable power deputy commonwealth's attorney for healthcare. The patient uses chewing tobacco. He does not use any alcohol or illicit drugs. Tobacco type: smokeless tobacco Smokeless tobacco user: chewing tobacco Alcohol intake: current Drinks per week: 1 Alcohol use details: occasionally Substance use: current Substance use type: crack/cocaine Gender identity (if verbalized by the patient): Male Spiritual care concerns: No Meds Home Medications and Allergies Home Medications Medication Instructions Recorded Confirmed Type fluoxetine 40 mg PO DAILY 01/19/21 01/19/21 History hydrochlorothiazide 25 mg PO DAILY 01/19/21 01/19/21 History losartan 100 mg PO DAILY 01/19/21 01/19/21 History Allergies Allergy/AdvReac Type Severity Reaction Status Adriano
[2021-01-20] MEDS: POTASSIUM CHLORIDE 20 MEQ TABLET 40 MEQ PO (12:43)
--- NOTE | 2021-01-20 14:10 | PM.PNCARD ---
Progress Note: A&P Assessment and Plan (1) STEMI (ST elevation myocardial infarction): Code(s): I21.3 - ST elevation (STEMI) myocardial infarction of unspecified site Status: Acute Assessment and Plan: Status post anterior STEMI total occlusion of LAD mid to distal segment status post 3.0 x 23 mm Xience drug-eluting stent. Circumflex relatively small 70% serial 60% stenosis. RCA large dominant vessel luminal irregularities. Continue aspirin 81 mg daily and Brilinta 90 mg twice daily without interruption. Carvedilol 3.125 mg twice daily. Atorvastatin 40 mg at bedtime. Check lipid panel. Further adjustment as appropriate. Okay to transfer from ICU. Discuss LifeVest prior to discharge. DVT prophylaxis with SCDs. (2) Cardiomyopathy: Code(s): I42.9 - Cardiomyopathy, unspecified Status: Acute Assessment and Plan: Severe LV dysfunction EF 25-30%, severe LV enlargement. Given findings in coronary anatomy while LV dysfunction may in large part be explained by his anterior STEMI I have concern given the degree of LV enlargement additional underlying contribution may exist. Will continue to monitor patient's response therapy. Optimize medical therapy for management of severe LV dysfunction, CHF, severe elevation of LVEDP 40 mm Hg. Continue IV diuresis, add spironolactone 25 mg daily. Consider changing to Entresto 49/51mg BID with washout of losartan for least 36 hours. Will need to blackburn with care coordination. (3) CHF (congestive heart failure): Code(s): I50.9 - Heart failure, unspecified Status: Acute Assessment and Plan: As above, continue IV diuresis monitor renal function electrolytes closely. Continue telemetry to assess for ventricular arrhythmias. (4) Hypertension: Code(s): I10 - Essential (primary) hypertension Status: Acute Assessment and Plan: BP elevated earlier today, improved. Continue to monitor closely. (5) Tobacco abuse: Code(s): Z72.0 - Tobacco use Status: Acute Assessment and Plan: Smoking cessation counseling. Subjective Date/time seen: Date of service: 01/20/21 13:10 Follow-up for STEMI, new cardiomyopathy, CHF Patient complains of feeling fatigued, short of breath. No nausea or chest pain. Tolerating food. Blood pressure stable. No sustained ventricular arrhythmias on telemetry. Review of Systems Review of Systems: All systems reviewed & are unremarkable except as noted in HPI and below Constitutional: Constitutional: Reports as per HPI, Denies chills, Reports fatigue, Denies fever(s), Reports lethargy, Denies poor appetite and Reports weakness Eyes: Eyes: Reports as per HPI, Denies eye discharge, Denies loss of vision, Denies eye pain and Denies photophobia ENT: Reports as per HPI, Denies dizziness, Denies epistaxis, Denies nasal congestion and Denies sore throat Cardiovascular: Cardiovascular: Reports as per HPI, Denies chest pain, Denies diaphoresis, Denies syncope, Denies pedal edema, Denies leg edema, Denies palpitations, Denies dyspnea, Reports dyspnea on exertion and Denies orthopnea Respiratory: Respiratory: Reports as per HPI, Denies cough, Reports dyspnea, Reports dyspnea on exertion and Denies wheezing Gastrointestinal: Gastrointestinal: Reports as per HPI, Denies abdominal pain, Denies diarrhea, Denies nausea and Denies vomiting Genitourinary: Genitourinary: Reports as per HPI, Denies hematuria, Denies genital lesions and Denies dysuria Musculoskeletal: Musculoskeletal: Reports as per HPI, Denies arthralgias, Denies joint swelling and Denies numbness Integumentary/Breasts: Skin/Breast: Reports as per HPI, Denies pruritus and Denies rash Neurologic: Reports as per HPI, Denies dizziness, Denies syncope, Denies loss of vision, Denies numbness and Reports weakness Psychiatric: Psychiatric: Reports as per HPI, Denies anxiety and Denies depression Endocrine: Endocrine: Reports no additional endocrine c
[2021-01-20 15:47] LABS: Cholesterol 154 mg/dL (0-200); HDL Direct 29 mg/dL; Triglycerides 141 mg/dL (<150)
[2021-01-20 15:57] LABS: LDL Cholesterol Direct 104 mg/dL
--- NOTE | 2021-01-20 15:57 | PM.IMPN ---
Progress Note: A&P Assessment and Plan (1) STEMI (ST elevation myocardial infarction): Code(s): I21.3 - ST elevation (STEMI) myocardial infarction of unspecified site Status: Acute Assessment and Plan: Stat STEMI called Echo with left ventricular systolic function severely reduced at 25-30% with akinesis of the apex Paykel lateral, apical anterior, apical septal, mid anterior and mid anterolateral tang Left atrium severely enlarged right atrium moderately enlarged trace TR mild pulmonary hypertension mild MR Status post urgent cardiac catheterization: Totally occluded LAD status post stenting high-grade stenosis in a small size distal left circumflex artery which will manage medically Currently on aspirin Brilinta statin Cardiology on board (2) Chest pain: Code(s): R07.9 - Chest pain, unspecified Status: Acute Assessment and Plan: See above CTA with congestive changes including Pulmonary interstitial and subpleural edema and minimal pleural effusions No PE (3) CHF (congestive heart failure): Qualifiers: Heart failure chronicity: acute Heart failure type: combined systolic and diastolic Qualified Code(s): I50.41 - Acute combined systolic (congestive) and diastolic (congestive) heart failure Code(s): I50.9 - Heart failure, unspecified Status: Inactive Assessment and Plan: Chest x-ray with mild congestive heart failure including pulmonary fissure and sub pleural edema Echo with ischemic cardiomyopathy noted Life vest-discharge Consider Entresto/spironolactone and continue beta-poly (4) Elevated troponin level: Code(s): R77.8 - Other specified abnormalities of plasma proteins Status: Inactive Assessment and Plan: Due to STEMI (5) Hypertension: Code(s): I10 - Essential (primary) hypertension Status: Acute Assessment and Plan: The patient has been given nitro. P.r.n. hydralazine. (6) Diabetes: Code(s): E11.9 - Type 2 diabetes mellitus without complications Status: Acute (7) Sleep apnea: Code(s): G47.30 - Sleep apnea, unspecified Status: Acute Subjective Date/time seen: 01/20/21 15:57 Interval history: Interval history no chest pain doing well denies any shortness of breath reports he was diagnosed with sleep apnea but never got follow-up on he has uncontrolled chronic hypertension for a long period time Review of Systems Review of Systems: All systems reviewed & are unremarkable except as noted in HPI and below (HPI) Exam Narrative: General: Pt is alert awake and in NAD Lungs/Chest: Trachea central Clear BS B/L, No crackles or wheezing. Cardiac: RRR. Normal S1 S2. No murmurs Circulation: Pedal pulses are intact and symmetrical. Abdomen: Normal bowel sounds.. Soft. NT. ND. Extremities: No clubbing, cyanosis or edema. Warm Neurologic: Follows commands. Moves all 4 extremities PERRL Skin: No Rash Objective Data Vital Signs Vital Signs: Vital Signs - 24 hr 01/19/21 19:25 01/19/21 19:30 01/19/21 20:00 Temperature 98.7 F Pulse Rate 105 H 101 H Respiratory Rate 18 Blood Pressure 149/119 H Pulse Oximetry 98 97 01/19/21 20:20 01/19/21 20:27 01/19/21 20:34 Temperature 98.2 F Pulse Rate 95 96 93 Respiratory Rate 22 H Blood Pressure 149/115 H 149/111 H 146/104 H Pulse Oximetry 97 97 97 01/19/21 21:15 01/19/21 23:13 01/19/21 23:45 Temperature 97.9 F Pulse Rate 94 95 95 Respiratory Rate 21 H 20 21 H Blood Pressure 149/108 H 144/110 H Pulse Oximetry 98 96 95 01/20/21 00:00 01/20/21 01:00 01/20/21 01:48 Temperature Pulse Rate 94 94 85 Respiratory Rate 20 17 Blood Pressure 146/110 H 138/108 H Pulse Oximetry 99 95 01/20/21 02:00 01/20/21 02:45 01/20/21 04:00 Temperature Pulse Rate 102 H 98 99 Respiratory Rate 22 H 17 21 H Blood Pressure 136/116 H 157/108 H 136/111 H Pulse Oximetry 100 99 99 01/20/21 05:00 01/20/21 06:00 01/20/21
[2021-01-20] MEDS: LORazepam (*CRX) 0.5 MG TABLET PO (16:16)
[2021-01-20] MEDS: SALINE 0.65% NAS SOLN 44 ML BTL 1 SPRAY NASAL (19:31)
[2021-01-20] MEDS: FLUTICASONE PROPIONATE 0.05% NA SPR 16 GM BTL (*BKC) 1 SPRAY NASAL (21:53)
[2021-01-21] VITALS (18 sets, daily range): BP systolic 105–142; BP diastolic 74–86; PULSE 88–122; RESP 16–22; TEMP 36.4–36.9; O2SAT 96–100
[2021-01-21 04:56] LABS: Basophils Absolute Auto 0.1 K/mm3 (0.0-0.1); Basophils Percent Auto 0.4 % (0.2-1.2); Eosinophils Absolute Auto 0.2 K/mm3 (0-0.3); Hemoglobin 15.2 g/dL (14.0-18.0); Immature Granulocyte Absolute 0.05 K/mm3 (0.00-0.031); Immature Granulocyte Percent A 0.4 % (0-0.5); Lymphocytes Absolute Auto 2.22 K/mm3 (0.9-3.2); Lymphocytes Percent Auto 19.7 % (18.3-44.2); Mean Corpuscular HGB Conc 34.5 g/dl (32-36); Mean Corpuscular Hemoglobin 28.5 pg (26-34); Mean Corpuscular Volume 82.6 fl (80-100); Mean Platelet Volume 9.1 fl (7.4-10.4); Monocytes Absolute Auto 1.1 K/mm3 (0.1-0.6); Monocytes Percent Auto 9.6 % (2.6-8.5); Neutrophils Absolute Auto 7.6 K/mm3 (1.3-6.7); Neutrophils Percent Auto 67.9 % (45.5-73.1); Platelet Count Result 320 k/mm3 (150-375); Red Blood Count 5.33 M/mm3 (4.6-6.20); Red Cell Distribution Width 13.9 % (11.5-14.5); White Blood Count 11.3 K/mm3 (4.5-10.0)
[2021-01-21 05:13] LABS: Alanine Aminotransferase 73 U/L (4-50); Albumin Level 3.8 g/dL (3.5-5.1); Alkaline Phosphatase 63 U/L (38-126); Anion Gap 12 mmol/L (8-16); Aspartate Amino Transferase 201 U/L (17-59); Bilirubin,Total 1.7 mg/dL (0.2-1.3); Blood Urea Nitrogen 18 mg/dL (9-20); Calcium 8.9 mg/dL (8.4-10.2); Carbon Dioxide 28 mmol/L (22-30); Chloride 98 mmol/L (98-107); Estimated CRCL calculation 86 ml/min; Estimated Glomerular Filt Rate > 60; Glucose 102 mg/dL (65-110); Magnesium 2.1 mg/dL (1.6-2.3); Sodium 138 mmol/L (137-145)
[2021-01-21] MEDS: POTASSIUM CHLORIDE 20 MEQ TABLET 40 MEQ PO (09:18)
[2021-01-21] MEDS: carvediloL 3.125 MG TABLET PO (09:20)
[2021-01-21] MEDS: FLUTICASONE PROPIONATE 0.05% NA SPR 16 GM BTL (*BKC) 1 SPRAY NASAL ×2 (09:21→20:13)
[2021-01-21] MEDS: FUROSEMIDE INJ 40 MG/4 ML VIAL IV PUSH (09:22)
[2021-01-21] MEDS: amLODIPine BESYLATE 5 MG TABLET PO (10:51)
[2021-01-21] MEDS: ASPIRIN 81 MG ENTERIC TABLET PO (10:51)
[2021-01-21] MEDS: LOSARTAN POTASSIUM 100 MG TABLET PO (10:52)
[2021-01-21] MEDS: SPIRONOLACTONE 25 MG TABLET PO (10:53)
[2021-01-21] MEDS: ATORVASTATIN 40 MG TABLET PO (10:53)
[2021-01-21] MEDS: TICAGRELOR 90 MG TABLET PO ×2 (10:53→20:13)
--- NOTE | 2021-01-21 12:50 | PM.IMPN ---
Progress Note: A&P Assessment and Plan (1) STEMI (ST elevation myocardial infarction): Code(s): I21.3 - ST elevation (STEMI) myocardial infarction of unspecified site Status: Acute Assessment and Plan: Stat STEMI called Echo with left ventricular systolic function severely reduced at 25-30% with akinesis of the apex Paykel lateral, apical anterior, apical septal, mid anterior and mid anterolateral tang Left atrium severely enlarged right atrium moderately enlarged trace TR mild pulmonary hypertension mild MR Status post urgent cardiac catheterization: Totally occluded LAD status post stenting high-grade stenosis in a small size distal left circumflex artery which will manage medically Currently on aspirin Brilinta statin carvedilol and losartan Cardiology on board Life vest at discharge (2) Chest pain: Code(s): R07.9 - Chest pain, unspecified Status: Acute Assessment and Plan: See above CTA with congestive changes including Pulmonary interstitial and subpleural edema and minimal pleural effusions No PE (3) CHF (congestive heart failure): Qualifiers: Heart failure chronicity: acute Heart failure type: combined systolic and diastolic Qualified Code(s): I50.41 - Acute combined systolic (congestive) and diastolic (congestive) heart failure Code(s): I50.9 - Heart failure, unspecified Status: Inactive Assessment and Plan: Chest x-ray with mild congestive heart failure including pulmonary fissure and sub pleural edema Echo with ischemic cardiomyopathy noted Life vest at-discharge Consider Entresto/spironolactone and continue beta-poly. Spironolactone and losartan Entresto with washout of losartan for at least 36 hours to consider per cardiology (4) Elevated troponin level: Code(s): R77.8 - Other specified abnormalities of plasma proteins Status: Inactive Assessment and Plan: Due to STEMI (5) Hypertension: Code(s): I10 - Essential (primary) hypertension Status: Acute Assessment and Plan: The patient has been given nitro. P.r.n. hydralazine. (6) Diabetes: Code(s): E11.9 - Type 2 diabetes mellitus without complications Status: Acute (7) Sleep apnea: Code(s): G47.30 - Sleep apnea, unspecified Status: Acute Assessment and Plan: ApneaLink tonight Additional Plan DVT prophylaxis-patient will ambulate SCDs in bed Transfer to general floor tele today Subjective Date/time seen: 01/21/21 12:50 Interval history: Interval history: No overnight event. Denies any chest pain or shortness of breath. Denies any leg swelling. Review of Systems Review of Systems: All systems reviewed & are unremarkable except as noted in HPI and below (HPI) Exam Narrative: General: Pt is alert awake and in NAD Lungs/Chest: Trachea central Clear BS B/L, No crackles or wheezing. Cardiac: RRR. Normal S1 S2. No murmurs Circulation: Pedal pulses are intact and symmetrical. Abdomen: Normal bowel sounds.. Soft. NT. ND. Extremities: No clubbing, cyanosis or edema. Warm Neurologic: Follows commands. Moves all 4 extremities PERRL Skin: No Rash Objective Data Vital Signs Vital Signs: Vital Signs - 24 hr 01/20/21 12:54 01/20/21 14:00 01/20/21 16:00 Temperature 98.2 F Pulse Rate 102 H 100 Respiratory Rate 18 18 Blood Pressure 129/101 H Pulse Oximetry 100 99 99 01/20/21 18:00 01/20/21 20:00 01/20/21 21:52 Temperature 97.8 F Pulse Rate 94 117 H 95 Respiratory Rate 20 Blood Pressure 139/91 H Pulse Oximetry 100 01/20/21 22:00 01/20/21 22:27 01/21/21 00:00 Temperature 98.4 F Pulse Rate 93 95 102 H Respiratory Rate 22 H Blood Pressure 142/83 H Pulse Oximetry 100 01/21/21 02:00 01/21/21 04:00 01/21/21 06:00 Temperature 97.5 F L Pulse Rate 112 H 102 H 92 Respiratory Rate 22 H Blood Pressure 105/78 Pulse Oximetry 98 01/21/21 07:00 01/21/21 08:00 01/21/21 09:
--- NOTE | 2021-01-21 13:57 | PM.PNCARD ---
Progress Note: A&P Assessment and Plan (1) STEMI (ST elevation myocardial infarction): Code(s): I21.3 - ST elevation (STEMI) myocardial infarction of unspecified site Status: Acute Assessment and Plan: Status post anterior STEMI total occlusion of LAD mid to distal segment status post 3.0 x 23 mm Xience drug-eluting stent. Circumflex relatively small 70% serial 60% stenosis. RCA large dominant vessel luminal irregularities. Continue aspirin 81 mg daily and Brilinta 90 mg twice daily without interruption. Carvedilol 3.125 mg twice daily. Atorvastatin 40 mg at bedtime. Check lipid panel. Further adjustment as appropriate. Okay to transfer from ICU. Discuss LifeVest prior to discharge. DVT prophylaxis with SCDs. Anticipate discharge home tomorrow provided no complications overnight. (2) Cardiomyopathy: Code(s): I42.9 - Cardiomyopathy, unspecified Status: Acute Assessment and Plan: Severe LV dysfunction EF 25-30%, severe LV enlargement. Given findings in coronary anatomy while LV dysfunction may in large part be explained by his anterior STEMI I have concern given the degree of LV enlargement additional underlying contribution may exist. Will continue to monitor patient's response therapy. Optimize medical therapy for management of severe LV dysfunction, CHF, severe elevation of LVEDP 40 mm Hg. Continue IV diuresis, add spironolactone 25 mg daily. Consider changing to Entresto 49/51mg BID with washout of losartan for least 36 hours. Will need to blackburn with care coordination. Discussed life vest for prevention of sudden cardiac secondary to VT/VF. Patient verbalized understanding of its role, potential benefit and limitations to reduce risk for sudden cardiac given EF of 25-30%. Will need to blackburn with insurance, however, as was later discovered patient has abused illicit substances such as cocaine methamphetamine last use was several days prior to admission. This may possibly explain suspicion for underlying cardiomyopathy aside from CAD given severe LV enlargement. He must absolutely avoid all substance abuse so to avoid marked increased risk for sudden cardiac and or myocardial infarction. Substance abuse counseling support prior to discharge. He was open to life vest consideration but did not commit to a decision during our discussion. He should let us know what he decides. (3) CHF (congestive heart failure): Code(s): I50.9 - Heart failure, unspecified Status: Acute Assessment and Plan: Reasonably compensated, transition to oral Lasix 40 mg daily tomorrow. Continue spironolactone, losartan, carvedilol for now. Continue telemetry to assess for ventricular arrhythmias. (4) Hypertension: Code(s): I10 - Essential (primary) hypertension Status: Acute Assessment and Plan: BP better controlled. Continue to monitor closely. (5) Tobacco abuse: Code(s): Z72.0 - Tobacco use Status: Acute Assessment and Plan: Smoking cessation counseling. Patient also engages illicit substance abuse such as cocaine methamphetamine occasion. He must never do so again as above. (6) Sleep apnea: Code(s): G47.30 - Sleep apnea, unspecified Status: Acute Assessment and Plan: Apnea link overnight. Patient reports being diagnosed with sleep apnea 5 years ago but never received or pursued treatment. Subjective Date/time seen: Date of service: 01/21/21 13:58 Follow-up for STEMI, cardiomyopathy Patient feels better today. Denies chest pain, shortness of breath much improved. Still dozing off on occasion during interview but easily arousable. Complains of feeling fatigued otherwise okay. Brief nonsustained VT on telemetry. Asymptomatic. Review of Systems Review of Systems: All systems reviewed & are unremarkable except as noted in HPI and below Constitutional: Constitutional: Reports as per HPI, Denies chills, Reports fatigue
[2021-01-21] MEDS: carvediloL 6.25 MG TABLET PO (20:13)
[2021-01-22] VITALS (10 sets, daily range): BP systolic 100–119; BP diastolic 66–86; PULSE 76–94; RESP 18–20; TEMP 36.3–36.7; O2SAT 98–100; BMI 32.4
[2021-01-22 06:30] LABS: Basophils Percent Auto 0.4 % (0.2-1.2); Eosinophils Absolute Auto 0.2 K/mm3 (0-0.3); Eosinophils Percent Auto 2.2 % (0-4.4); Hemoglobin 15.6 g/dL (14.0-18.0); Immature Granulocyte Absolute 0.06 K/mm3 (0.00-0.031); Immature Granulocyte Percent A 0.6 % (0-0.5); Lymphocytes Absolute Auto 2.31 K/mm3 (0.9-3.2); Lymphocytes Percent Auto 23.4 % (18.3-44.2); Mean Corpuscular HGB Conc 34.7 g/dl (32-36); Mean Corpuscular Hemoglobin 29.2 pg (26-34); Mean Corpuscular Volume 84.1 fl (80-100); Mean Platelet Volume 9.1 fl (7.4-10.4); Monocytes Percent Auto 9.7 % (2.6-8.5); Neutrophils Absolute Auto 6.3 K/mm3 (1.3-6.7); Neutrophils Percent Auto 63.7 % (45.5-73.1); Platelet Count Result 314 k/mm3 (150-375); Red Blood Count 5.35 M/mm3 (4.6-6.20); Red Cell Distribution Width 14.3 % (11.5-14.5); White Blood Count 9.9 K/mm3 (4.5-10.0)
[2021-01-22 06:44] LABS: Alanine Aminotransferase 59 U/L (4-50); Alkaline Phosphatase 63 U/L (38-126); Anion Gap 8 mmol/L (8-16); Aspartate Amino Transferase 81 U/L (17-59); Bilirubin,Total 1.3 mg/dL (0.2-1.3); Blood Urea Nitrogen 16 mg/dL (9-20); Carbon Dioxide 26 mmol/L (22-30); Chloride 104 mmol/L (98-107); Estimated CRCL calculation 88 ml/min; Estimated Glomerular Filt Rate > 60; Glucose 100 mg/dL (65-110); Potassium 3.5 mmol/L (3.4-5.0); Sodium 138 mmol/L (137-145)
[2021-01-22] MEDS: TICAGRELOR 90 MG TABLET PO (08:47)
[2021-01-22] MEDS: carvediloL 6.25 MG TABLET PO (08:47)
[2021-01-22] MEDS: FUROSEMIDE INJ 40 MG/4 ML VIAL IV PUSH (08:47)
[2021-01-22] MEDS: amLODIPine BESYLATE 5 MG TABLET PO (08:47)
[2021-01-22] MEDS: ATORVASTATIN 40 MG TABLET PO (08:48)
[2021-01-22] MEDS: SPIRONOLACTONE 25 MG TABLET PO (08:48)
[2021-01-22] MEDS: ASPIRIN 81 MG ENTERIC TABLET PO (08:48)
[2021-01-22] MEDS: LOSARTAN POTASSIUM 100 MG TABLET PO (08:48)
[2021-01-22] MEDS: FLUTICASONE PROPIONATE 0.05% NA SPR 16 GM BTL (*BKC) 1 SPRAY NASAL (08:48)
--- NOTE | 2021-01-22 09:09 | PM.PNCARD ---
Progress Note: A&P Assessment and Plan (1) STEMI (ST elevation myocardial infarction): Code(s): I21.3 - ST elevation (STEMI) myocardial infarction of unspecified site <BIRGIT Lee - Last Filed: 01/22/21 15:59> Status: Acute <BIRGIT Lee - Last Filed: 01/22/21 15:59> Assessment and Plan: Status post anterior STEMI total occlusion of LAD mid to distal segment status post 3.0 x 23 mm Xience drug-eluting stent. Circumflex relatively small 70% serial 60% stenosis. RCA large dominant vessel luminal irregularities. Continue aspirin 81 mg daily. Patient's insurance does not cover Brilinta - will shift him to Plavix. Carvedilol 6.25 mg twice daily. Increase Atorvastatin to 80mg daily. Patient has decided to proceed with LifeVest. This has been ordered. Appropriate for discharge home today from a cardiac perspective. <BIRGIT Lee - Last Filed: 01/22/21 15:59> (2) Cardiomyopathy: Code(s): I42.9 - Cardiomyopathy, unspecified <BIRGIT Lee - Last Filed: 01/22/21 15:59> Status: Acute <BIRGIT Lee - Last Filed: 01/22/21 15:59> Assessment and Plan: Severe LV dysfunction EF 25-30%, severe LV enlargement. Given findings in coronary anatomy while LV dysfunction may in large part be explained by his anterior STEMI I have concern given the degree of LV enlargement additional underlying contribution may exist. Will continue to monitor patient's response therapy. Optimize medical therapy for management of severe LV dysfunction, CHF, severe elevation of LVEDP 40 mm Hg. Continue IV diuresis, add spironolactone 25 mg daily. Per care coordination, unable to blackburn Entresto at this time - will revisit this as an outpatient and consider shifting him from losartan to entresto at that time. Discussed life vest for prevention of sudden cardiac secondary to VT/VF. Patient verbalized understanding of its role, potential benefit and limitations to reduce risk for sudden cardiac given EF of 25-30%. Will need to blackburn with insurance, however, as was later discovered patient has abused illicit substances such as cocaine methamphetamine last use was several days prior to admission. This may possibly explain suspicion for underlying cardiomyopathy aside from CAD given severe LV enlargement. He must absolutely avoid all substance abuse so to avoid marked increased risk for sudden cardiac and or myocardial infarction. Substance abuse counseling support prior to discharge. He has decided to proceed with LifeVest. This has been ordered. <BIRGIT Lee - Last Filed: 01/22/21 15:59> (3) CHF (congestive heart failure): Code(s): I50.9 - Heart failure, unspecified <BIRGIT Lee - Last Filed: 01/22/21 15:59> Status: Acute <BIRGIT Lee - Last Filed: 01/22/21 15:59> Assessment and Plan: Reasonably compensated. Continue furosemide 40mg p.o. daily Continue spironolactone, losartan, carvedilol for now. Continue telemetry to assess for ventricular arrhythmias. <BIRGIT Lee - Last Filed: 01/22/21 15:59> (4) Hypertension: Code(s): I10 - Essential (primary) hypertension <BIRGIT Lee - Last Filed: 01/22/21 15:59> Status: Acute <BIRGIT Lee - Last Filed: 01/22/21 15:59> Assessment and Plan: BP better controlled. Continue to monitor closely. <BIRGIT Lee - Last Filed: 01/22/21 15:59> (5) Tobacco abuse: Code(s): Z72.0 - Tobacco use <BIRGIT Lee - Last Filed: 01/22/21 15:59> Status: Acute <BIRGIT Lee - Last Filed: 01/22/21 15:59> Assessment and Plan: Smoking cessation counseling. He states he does not smoke but uses chewing tobacco. I counseled him on cessation of any nicotine products. Patient also engages illicit substance abuse such as cocaine methamphe
--- NOTE | 2021-01-22 13:22 | PM.DS ---
DS: Admitting Diagnosis Discharge Date 01/22/2021 Admitting Diagnosis Chest pain DS: Discharge Diagnosis Discharge Diagnosis (1) STEMI (ST elevation myocardial infarction): Code(s): I21.3 - ST elevation (STEMI) myocardial infarction of unspecified site Status: Acute Assessment and Plan: Stat STEMI called Echo with left ventricular systolic function severely reduced at 25-30% with akinesis of the apical lateral, apical anterior, apical septal, mid anterior and mid anterolateral tang Left atrium severely enlarged right atrium moderately enlarged trace TR mild pulmonary hypertension mild MR Status post urgent cardiac catheterization: Totally occluded LAD status post stenting high-grade stenosis in a small size distal left circumflex artery which will manage medically Currently on aspirin Brilinta statin carvedilol and losartan Cardiology on board Life vest at discharge which will be arranged okay to discharge per Cardiology (2) Chest pain: Code(s): R07.9 - Chest pain, unspecified Status: Acute Assessment and Plan: See above CTA with congestive changes including Pulmonary interstitial and subpleural edema and minimal pleural effusions No PE (3) CHF (congestive heart failure): Qualifiers: Heart failure chronicity: acute Heart failure type: combined systolic and diastolic Qualified Code(s): I50.41 - Acute combined systolic (congestive) and diastolic (congestive) heart failure Code(s): I50.9 - Heart failure, unspecified Status: Inactive Assessment and Plan: Chest x-ray with mild congestive heart failure including pulmonary fissure and sub pleural edema Echo with ischemic cardiomyopathy noted Life vest at-discharge Consider Entresto/spironolactone and continue beta-poly. Spironolactone and losartan Entresto with washout of losartan for at least 36 hours to consider per cardiology should be done as an outpatient basis (4) Elevated troponin level: Code(s): R77.8 - Other specified abnormalities of plasma proteins Status: Inactive Assessment and Plan: Due to STEMI (5) Hypertension: Code(s): I10 - Essential (primary) hypertension Status: Acute Assessment and Plan: The patient has been given nitro. P.r.n. hydralazine. (6) Diabetes: Code(s): E11.9 - Type 2 diabetes mellitus without complications Status: Acute (7) Sleep apnea: Code(s): G47.30 - Sleep apnea, unspecified Status: Acute Assessment and Plan: ApneaLink performed highly suggestive of sleep apnea. She will need sleep study as an outpatient basis which is encouraged for him to discuss with his primary care doctor once discharged. DS: Summary Hospital Course Hospital Course: See above Time Spent with Patient Time attestation: Total time spent providing and/or coordinating discharge services: 50 minutes Exam Narrative: General: Pt is alert awake and in NAD Lungs/Chest: Trachea central Clear BS B/L, No crackles or wheezing. Cardiac: RRR. Normal S1 S2. No murmurs Circulation: Pedal pulses are intact and symmetrical. Abdomen: Normal bowel sounds.. Soft. NT. ND. Extremities: No clubbing, cyanosis or edema. Warm Neurologic: Follows commands. Moves all 4 extremities PERRL Skin: No Rash DS: Data Data Completed and Pending Completed studies during hospitalization: Cardiac Cath Procedure Note Date of procedure:: 01/19/21 Performing physician:: Antonio Gray MD Date of service 01/19/2021 Indication:: anterior STEMI Brief clinical history:: 45-year-old patient history of diabetes, hypertension CHF postop taking his medicines. Apparently he went to get his losartan refilled and was complaining of shortness of breath. Blood work was done showed elevated troponins and elevated creatinine. Was told to go to the emergency room at [facility]. His blood pressure there was significantly elevated as well. He was transferred to [facility]
== END 2021-01-22 16:16 | disposition home or self-care (01) | DRG 246 ==
LOC: ANHICU 23:18 → ANHIMU 01-20 17:13 → ANHICU 01-24 13:51 → ANHIMU 01-24 13:51
PROVIDERS: Family Medicine; Internal Medicine Cardiovascular Disease; Nurse Practitioner; Admitting Provider Internal Medicine; PCP Internal Medicine; Visit Provider Internal Medicine
PROC: 4A023N7 Measurement of Cardiac Sampling and Pressure, Left Heart, Percutaneous Approach (ICD-10-PCS; CPT 93452; principal; 2021-01-19 21:05)
PROC: 027034Z Dilation of Coronary Artery, One Artery with Drug-eluting Intraluminal Device, Percutaneous Approach (ICD-10-PCS; 2021-01-19 21:05)
PROC: 027034Z Dilation of Coronary Artery, One Artery with Drug-eluting Intraluminal Device, Percutaneous Approach (ICD-10-PCS; 2021-01-19 21:05)
DX: I21.09 ST elevation (STEMI) myocardial infarction involving other coronary artery of anterior wall (principal); I50.41 Acute combined systolic (congestive) and diastolic (congestive) heart failure; I25.5 Ischemic cardiomyopathy; I25.10 Atherosclerotic heart disease of native coronary artery without angina pectoris; I27.20 Pulmonary hypertension, unspecified; R77.8 Other specified abnormalities of plasma proteins; I11.0 Hypertensive heart disease with heart failure; F17.220 Nicotine dependence, chewing tobacco, uncomplicated; E11.9 Type 2 diabetes mellitus without complications; G47.30 Sleep apnea, unspecified; Z28.21 Immunization not carried out because of patient refusal; Z91.14 Patient's other noncompliance with medication regimen
CPT/HCPCS: 36415; 80053; 80061; 82948; 83036; 83605; 83615; 83735; 84443; 84484; 85025; 85380; 85610; 85730; 93005; 93306; 93458; 94762; A9270; C1725; C1760; C1769; C1874; C1887; C1894; C9606; G0269; J0583; J1644; J1940; J2060; J2250; J2270; J3010; J3480; J7030; J7040

== ENCOUNTER 2021-05-13 10:39 | Emergency (ER) | payer BC, SELFPAY ==
[2021-05-13] VITALS (7 sets, daily range): BP systolic 120–175; BP diastolic 79–117; PULSE 74–95; RESP 18–20; TEMP 36.9–37.1; O2SAT 97–98
--- NOTE | ~2021-05-13 | XR_ITS ---
EXAMINATION: XR chest 1V portable DATE: 05/13/2021 11:16 INDICATION: Left chest pain. TECHNIQUE: A single frontal view of the chest was obtained. COMPARISON: Chest 2 views 01/19/2021, chest CT 01/19/2021 FINDINGS: There are mild airspace opacities in the lower lung zones. No pleural effusion or pneumotho rax. Cardiomegaly is noted. IMPRESSION: 1. Mild airspace opacities in the lower lung zones, consistent with atelectasis versus mild pulmonary edema versus pneumonia. 2. Cardiomegaly. Reviewed, dictated and finalized at location A. O FINISH PHOTOGRAPHER
--- NOTE | ~2021-05-13 | CT_ITS ---
EXAMINATION:CT diagnostic chest wo con DATE: 05/13/2021 12:59 INDICATION: Left anterior chest pain. TECHNIQUE: Computed tomography (CT) of the chest was performed without intravenous contrast. Automate d exposure control and iterative reconstruction technique were employed. The dose-length product (DLP ) was 526.13 mGy-cm. COMPARISON: Chest CT 01/19/2021, chest single view 05/13/2021 FINDINGS: The lungs demonstrate mild atelectasis. No pleural effusion. Cardiomegaly is noted. There a re coronary artery calcifications. There is a stent in left anterior descending coronary artery. No p ericardial effusion. There is mild thoracic spondylosis. There is an old healed fracture of left 10th rib. IMPRESSION: 1. Cardiomegaly. Reviewed, dictated and finalized at location A. BASKET MAKER MACHINE IMPRESSION: 1. Cardiomegaly.
--- NOTE | 2021-05-13 10:46 | ECG_ITS ---
Measurements Intervals [place] Rate: 87 P: 10 MI: 219 QRS: -78 QRSD: 140 T: 88 QT: 407 QTc: 492 Interpretive Statements SINUS RHYTHM POSSIBLE LEFT ATRIAL ENLARGEMENT BORDERLINE AV CONDUCTION DELAY INCOMPLETE RIGHT BUNDLE BRANCH BLOCK LEFT ANTERIOR FASCICULAR BLOCK BORDERLINE T WAVE ABNORMALITY- HIGH LATERAL LEADS ABNORMAL ECG Electronically Signed On 05-13-2021 16:28:15 SUPERVISOR STAGE CARPENTRY by Camden Doyle D.O.
[2021-05-13 11:14] LABS: Basophils Absolute Auto 0.06 K/mm3 (0.00-0.10); Basophils Percent Auto 0.6 % (0.0-1.0); Eosinophils Absolute Auto 0.19 K/mm3 (0.02-0.50); Eosinophils Percent Auto 1.9 % (1.0-6.0); Hematocrit 44.1 % (40.0-54.0); Hemoglobin 15.5 g/dL (14.0-18.0); Immature Granulocyte Absolute 0.04 K/mm3 (0.00-0.00); Immature Granulocyte Percent A 0.4 % (0.0-0.0); Lymphocytes Absolute Auto 3.02 K/mm3 (1.10-4.50); Mean Corpuscular HGB Conc 35.1 g/dL (32.0-36.0); Mean Corpuscular Hemoglobin 29.1 pg (27.0-31.0); Mean Corpuscular Volume 82.9 fL (78.0-102.0); Mean Platelet Volume 8.4 fl (8.7-11.0); Monocytes Absolute Auto 0.79 K/mm3 (0.10-0.90); Monocytes Percent Auto 7.9 % (2.0-11.0); Neutrophils Percent Auto 59.2 % (50.0-70.0); Platelet Count Result 359 K/mm3 (150-420); Red Blood Count 5.32 M/mm3 (4.70-6.10); Red Cell Distribution Width 13.1 % (11.6-14.4); White Blood Count 10.1 K/mm3 (4.8-10.8)
[2021-05-13] MEDS: METOPROLOL TARTRATE INJ 5 MG/5 ML VIAL IV PUSH (11:18)
[2021-05-13] MEDS: SODIUM CHLORIDE 0.9% IV 1,000 ML 150 ML IV CONT (11:20)
[2021-05-13] MEDS: ONDANSETRON INJ 4 MG/2 ML VIAL IV PUSH (11:25)
[2021-05-13 11:28] LABS: Lactic Acid Reflex 1.1 mmol/L (0.4-2.0)
[2021-05-13 11:29] LABS: Alanine Aminotransferase 31 U/L (16-63); Albumin Level 3.9 g/dL (3.4-5.0); Alkaline Phosphatase 90 U/L (46-116); Anion Gap 10 mmol/L (8-16); Aspartate Amino Transferase 16 U/L (15-37); Bilirubin,Total 0.5 mg/dL (0.00-1.00); Blood Urea Nitrogen 13 mg/dL (7-18); Calcium 8.5 mg/dL (8.5-10.1); Carbon Dioxide 28 mmol/L (21-32); Chloride 103 mmol/L (98-108); Estimated CRCL calculation 85 ml/min; Estimated Glomerular Filt Rate > 60; Ethanol 30 mg/dL (0-6); Glucose 98 mg/dL (70-99); NT Pro B Type Natriuretic Pept 1896 pg/mL (0-125); Osmolality Calculated 292 mOsm/kg (285-295); Potassium 3.1 mmol/L (3.5-5.1); Sodium 141 mmol/L (136-145); Total Protein 7.8 g/dL (6.4-8.2); Troponin I 24.6 ng/L (0.00-60.4)
[2021-05-13] MEDS: PANTOPRAZOLE SODIUM IV 40 MG VIAL IV PUSH (11:30)
[2021-05-13] MEDS: ASPIRIN 81 MG CHEWABLE TABLET 162 MG PO (11:34)
--- NOTE | 2021-05-13 12:48 | ED.CHESTPAIN ---
HPI - Chest Pain General Chief Complaint: Chest Pain Stated Complaint: chest pain shooting down arm Time Seen by Provider: 05/13/21 10:41 Source: patient, family and RN notes reviewed Mode of arrival: ambulatory Limitations: no limitations History of Present Illness complaint: chest pain Pertinent past history: prior [place] Onset (ago): hour(s) (6) Timing of current episode: constant Prior episodes: Yes Onset: during exertion and associated with drug use Pain location: substernal Pain radiation: none Severity: mild Pain scale (0-10): 3 Quality: tightness, aching, heaviness and dull Relieving factors: nothing Exacerbating factors: nothing Context: non compliance with medication Associated symptoms: nausea Treatment prior to arrival: aspirin Risk Factors Coronary artery disease risk factors: cocaine use (recent [place] and uncontrolled HTN) Related Data Home Medications Medication Instructions Recorded Confirmed fluoxetine 40 mg PO DAILY 01/19/21 05/13/21 losartan 100 mg PO DAILY 01/19/21 05/13/21 Allergies Allergy/AdvReac Type Severity Reaction Status Date / Time No Known Allergies Allergy Verified 01/19/21 12:38 Review of Systems Review of Systems: All systems reviewed & are unremarkable except as noted in HPI and below Cardiovascular: Cardiovascular: Reports chest pain PMFSH Past Medical History Medical History (Updated 05/13/21 @ 13:57 by Toni Man MD) Hypertension SOB (shortness of breath) on exertion Substance abuse Surgical History Surgical History H/O hernia repair H/O knee surgery On the right Family History Family History Mother Thyroid disease Father Diabetes mellitus Cancer Social History Social History Social History: The patient is and has 2 children. 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 The patient is a full code. He stated that his would be the durable power family counselor for healthcare. The patient uses chewing tobacco. He does not use any alcohol or illicit drugs. Tobacco type: smokeless tobacco Smokeless tobacco user: chewing tobacco Alcohol intake: current Drinks per week: 1 Alcohol use details: occasionally Substance use: current Substance use type: crack/cocaine Gender identity (if verbalized by the patient): Male Spiritual care concerns: No Exam Const: General: no acute distress and alert Nutritional Appearance: well nourished Orientation/consciousness: patient oriented x3 HENMT: Head: normal to inspection Ears: external ears normal and TM's normal bilaterally General nose exam: Normal external nose present and Normal nares present Mouth: Yes lip normal and Yes moist mucous membranes Teeth and gingiva: dentition normal Eyes: Conjunctivae: conjunctivae normal Pupils: Equal, round and reactive pupils present EOM: EOMs intact bilaterally Neck: Neck: normal visual inspection Other: supple. no acute chest wall pain. Chest: Chest palpation & inspection: normal inspection of the chest Resp: Effort & Inspection: normal respiratory effort Auscultation: clear to auscultation bilaterally Cardio: Rate: regular rate Rhythm: regular rhythm GI: GI Palp: Yes Soft to palpation and No Tenderness to palpation present (GI) Auscultation: normal bowel sounds : General: Yes bladder normal to palpation and Yes no CVA tenderness Male General Exam: Yes normal external exam Testes: Testes normal Back/Spine/Pelvis: Back: no CVA tenderness Skin: General skin exam: normal color and jaundice Rashes: no rashes Neuro: General: patient oriented x3, moves all extremities, no meningeal signs, no focal motor deficits and CN's II-XI intact bilaterally Extrem: General: normal to inspection and no pedal edema Psych: Appearance: grossly normal Mental Status: mental status grossly normal Affect:
[2021-05-13] MEDS: POTASSIUM CHLORIDE 20 MEQ TABLET 40 MEQ PO (12:57)
[2021-05-13 13:26] LABS: Amphetamine Screen Urine Negative (Negative); Barbiturate Screen Urine Negative (Negative); Benzodiazepines Screen Urine Negative (Negative); Cannabinoid Screen Urine Negative (Negative); Cocaine Screen Urine Positive (Negative); Methadone Screen Urine Negative (Negative); Opiate Screen Urine Negative (Negative); Phencyclidine Screen Urine Negative (Negative)
[2021-05-13 13:35] LABS: Troponin I 24.5 ng/L (0.00-60.4)
== END 2021-05-13 14:43 | disposition home or self-care (01) ==
PROVIDERS: Emergency Provider Emergency Medicine; PCP Internal Medicine
DX: F19.10 Other psychoactive substance abuse, uncomplicated (principal); R07.89 Other chest pain; I10 Essential (primary) hypertension
CPT/HCPCS: 36415; 71045; 71250; 80053; 80307; 83605; 83880; 84484; 85025; 93005; 96361; 96374; 96375; 99283; 99284; A9270; C9113; J2405; J7030

== ENCOUNTER 2021-06-30 08:25 | Emergency (ER) | payer BC, SELFPAY ==
--- NOTE | ~2021-06-30 | XR_ITS ---
EXAMINATION: XR chest 1V portable 06/30/2021 08:51 INDICATION: Chest pain. Hypertension. Dizziness. PROCEDURE: AP portable chest COMPARISON: Comparison to multiple prior studies sequentially, with oldest reviewed study dated 08/31. FINDINGS: The lungs are clear. The cardiomediastinal silhouette is within normal limits. There are no pleural effusions. There is no pneumothorax suspected. IMPRESSION: 1: NO ACUTE CARDIOPULMONARY DISEASE. Reviewed, dictated and finalized at location A.
--- NOTE | 2021-06-30 08:26 | ECG_ITS ---
Measurements Intervals [place] Rate: 102 P: 46 WA: 198 QRS: -59 QRSD: 140 T: 52 QT: 390 QTc: 508 Interpretive Statements SINUS TACHYCARDIA WITH OCCASIONAL VENTRICULAR PREMATURE COMPLEXES POSSIBLE LEFT ATRIAL ENLARGEMENT [-0.1mV P WAVE IN V1/V2] INTRAVENTRICULAR CONDUCTION DELAY [130+ ms QRS DURATION] POSSIBLE LEFT VENTRICULAR HYPERTROPHY [VOLTAGE CRITERIA PLUS LAE OR QRS WIDENING] POSSIBLE ANTERIOR MYOCARDIAL INFARCTION , OF INDETERMINATE AGE [30 ms Q WAVE IN V3/V4, OR R < 0.2 mV IN V4] LEFT ANTERIOR FASCICULAR BLOCK ABNORMAL ECG COMPARED TO ECG 05/13/2021 10:51:40 SINUS TACHYCARDIA NOW PRESENT NO SIGNIFICANT CHANGES Electronically Signed On 06-30-2021 9:33:39 CDT by Dank Michelle M.D.
[2021-06-30 08:30] VITALS: BP 183/109; PULSE 95; RESP 20; TEMP 37.2
--- NOTE | 2021-06-30 08:38 | ED.GENADULT ---
HPI - General Adult General Chief complaint: Chest Pain Stated complaint: cp Time Seen by Provider: 06/30/21 08:33 Source: RN notes reviewed History of Present Illness HPI narrative: Patient presents emergency department from home for not feeling well. Patient states approximately an hour ago he had been moving some motorcycle parts and then sat down to eat a sausage [employer] sandwich he states that he then began to feel like his entire body was on fire he states he then felt cold and had numbness in his hands and feet he states this was also associated with nausea and continues to have a feeling of nausea in his upper abdomen as well as a feeling of brief chest pain described as a pressure that is now resolved he states he does feel mildly dizzy at this time he denies any fevers vomiting diarrhea or any other symptoms Related Data Home Medications Medication Instructions Recorded Confirmed fluoxetine 40 mg PO DAILY 01/19/21 05/13/21 losartan 100 mg PO DAILY 01/19/21 05/13/21 sulfacetamide sodium drp 06/30/21 Allergies Allergy/AdvReac Type Severity Reaction Status Date / Time No Known Allergies Allergy Verified 06/30/21 08:51 Review of Systems Review of Systems: Gen.: Denies fevers or chills Eyes: Denies eye pain or visual change ENT: Denies congestion Respiratory: Ports feeling shortness of breath CV: Reports episode of chest pain GI: Reports upper abdominal pain and nausea and denies emesis or diarrhea denies burning, urgency, frequency or hematuria Musculoskeletal: Denies back pain or muscle pain Neuro: Reports numbness and tingling in hands and feet and dizziness Skin: Denies rash Except as documented, all other systems reviewed and negative [facility] Past Medical History Medical History Hypertension SOB (shortness of breath) on exertion Substance abuse Surgical History Surgical History H/O hernia repair H/O knee surgery On the right Family History Family History Mother Thyroid disease Father Diabetes mellitus Cancer Social History Social History Social History: The patient is and has 2 children. 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 The patient is a full code. He stated that his would be the durable power deputy commonwealth's attorney for healthcare. The patient uses chewing tobacco. He does not use any alcohol or illicit drugs. Tobacco type: smokeless tobacco Smokeless tobacco user: chewing tobacco Alcohol intake: current Drinks per week: 1 Alcohol use details: occasionally Substance use: current Substance use type: crack/cocaine Gender identity (if verbalized by the patient): Male Spiritual care concerns: No Exam Narrative: APPEARANCE: No acute distress, nontoxic, resting in bed EYES: EOMI HEENT: Normocephalic, atraumatic, OMM RESPIRATORY: No respiratory distress Clear to auscultation bilaterally with no rhonchi wheezing or rales. CARDIOVASCULAR: Regular rate and rhythm without murmurs rubs or gallops. ABDOMINAL: Soft, nontender, nondistended, no rebound or guarding MUSCULOSKELETAl: Moves all extremities. No clubbing, cyanosis or edema. NEURO: Awake and alert. Following commands, speech normal, no focal deficits SKIN:: Warm, dry. No rashes lesions or abrasions PSYCHIATRIC: Normal affect/mood, Course Course Emergency Course: Patient states he is feeling better following Ativan I discussed with the patient he states he did go out drinking last night states he normally does not drink but had several drinks when he came home he had been feeling a little out of it. He states this morning after he moved bicycle parts got he felt nauseous vascularizing started Discussed with patient results of workup and diagnosis. Discussed need for follow-up with primary care, proper use of me
[2021-06-30 08:54] LABS: Basophils Percent Auto 0.5 % (0.2-1.2); Eosinophils Absolute Auto 0.2 K/mm3 (0-0.3); Eosinophils Percent Auto 2.5 % (0-4.4); Hematocrit 43.4 % (42.0-52.0); Hemoglobin 15.4 g/dL (14.0-18.0); Immature Granulocyte Absolute 0.02 K/mm3 (0.00-0.031); Immature Granulocyte Percent A 0.3 % (0-0.5); Lymphocytes Absolute Auto 2.58 K/mm3 (0.9-3.2); Lymphocytes Percent Auto 34.1 % (18.3-44.2); Mean Corpuscular HGB Conc 35.5 g/dl (32-36); Mean Corpuscular Hemoglobin 30.3 pg (26-34); Mean Corpuscular Volume 85.4 fl (80-100); Mean Platelet Volume 8.5 fl (7.4-10.4); Monocytes Absolute Auto 0.8 K/mm3 (0.1-0.6); Neutrophils Percent Auto 52.6 % (45.5-73.1); Platelet Count Result 303 k/mm3 (150-375); Red Blood Count 5.08 M/mm3 (4.6-6.20); Red Cell Distribution Width 12.6 % (11.5-14.5); White Blood Count 7.6 K/mm3 (4.5-10.0)
[2021-06-30] MEDS: SODIUM CHLORIDE 0.9% IV 1,000 ML 999 ML IV CONT (08:59)
[2021-06-30] MEDS: LORazepam INJ (*CRX) 2 MG/ML VIAL 0.5 MG IV PUSH (09:00)
[2021-06-30] MEDS: ASPIRIN 81 MG CHEWABLE TABLET 324 MG PO (09:01)
--- NOTE | 2021-06-30 09:01 | PC.NURSE ---
pt took 3 baby asa prior to arrival. one 81 mg given at this time
[2021-06-30 09:15] LABS: Troponin I 0.012 ng/mL (0.000-0.034)
[2021-06-30 09:16] LABS: Partial Thromboplastin Time 28.7 SECONDS (22.3-36.8); Prothrombin Time 12.7 Seconds (11.1-14.7)
[2021-06-30 09:21] LABS: Alanine Aminotransferase 34 U/L (4-50); Albumin Level 4.6 g/dL (3.5-5.1); Alkaline Phosphatase 83 U/L (38-126); Anion Gap 9 mmol/L (8-16); Aspartate Amino Transferase 41 U/L (17-59); Bilirubin,Total 0.7 mg/dL (0.2-1.3); Blood Urea Nitrogen 18 mg/dL (9-20); Calcium 8.5 mg/dL (8.4-10.2); Carbon Dioxide 28 mmol/L (22-30); Chloride 102 mmol/L (98-107); Estimated CRCL calculation 91 ml/min; Estimated Glomerular Filt Rate > 60; Glucose 146 mg/dL (65-110); Lipase 136 U/L (23-300); Potassium 2.7 mmol/L (3.4-5.0); Sodium 139 mmol/L (137-145)
[2021-06-30 09:23] LABS: Magnesium 2.2 mg/dL (1.6-2.3)
[2021-06-30 09:41] LABS: Add Urine Microscopic? NO; Appearance Urine Clear (Clear); Bilirubin Urine Negative (Negative); Blood Urine Negative (Negative); Color Urine Straw (Yellow); Glucose Urine UA Negative (Negative); Ketones Urine Negative (Negative); Leukocyte Esterase Ur Negative LEU/UL (Negative); Nitrate Urine Negative (Negative); Protein Urine Negative (Negative); Specific Grav Ur 1.008 (1.001-1.035); Urobilinogen Urine Negative mg/dL (<2.0)
[2021-06-30 09:49] VITALS: BP 134/92; PULSE 80; RESP 21; O2SAT 99
[2021-06-30] MEDS: POTASSIUM CHLORIDE 20 MEQ TABLET 40 MEQ PO (09:56)
[2021-06-30] MEDS: KCL 40 MEQ/WATER 100 ML 100 ML 25 ML IVPB (09:56)
[2021-06-30 11:01] VITALS: BP 147/103; PULSE 96; RESP 25; O2SAT 99
[2021-06-30 12:00] LABS: Troponin I < 0.012 ng/mL (0.000-0.034)
[2021-06-30 13:21] LABS: Anion Gap 7 mmol/L (8-16); Blood Urea Nitrogen 15 mg/dL (9-20); Calcium 8.4 mg/dL (8.4-10.2); Carbon Dioxide 26 mmol/L (22-30); Chloride 107 mmol/L (98-107); Estimated CRCL calculation 100 ml/min; Estimated Glomerular Filt Rate > 60; Glucose 120 mg/dL (65-110); Potassium 3.6 mmol/L (3.4-5.0); Sodium 140 mmol/L (137-145)
[2021-06-30 13:58] VITALS: BP 142/62; PULSE 70; RESP 18; O2SAT 99
== END 2021-06-30 13:59 | disposition home or self-care (01) ==
PROVIDERS: Emergency Provider Emergency Medicine; PCP Internal Medicine
DX: R11.2 Nausea with vomiting, unspecified (principal); E87.6 Hypokalemia; I10 Essential (primary) hypertension; F17.220 Nicotine dependence, chewing tobacco, uncomplicated; R00.0 Tachycardia, unspecified; I49.3 Ventricular premature depolarization; R94.31 Abnormal electrocardiogram [ECG] [EKG]; I45.9 Conduction disorder, unspecified; I44.4 Left anterior fascicular block
CPT/HCPCS: 36415; 71045; 80048; 80053; 81003; 83690; 83735; 84484; 85025; 85610; 85730; 93005; 96361; 96365; 96366; 96375; 99284; A9270; J2060; J3480; J7030

== ENCOUNTER 2022-01-02 13:37 | Outpatient (CLI) | payer BC, SELFPAY ==
[2022-01-02 14:23] LABS: Anion Gap 7 mmol/L (8-16); Blood Urea Nitrogen 17 mg/dL (7-18); Calcium 8.7 mg/dL (8.5-10.1); Carbon Dioxide 28 mmol/L (21-32); Chloride 104 mmol/L (98-108); Estimated Glomerular Filt Rate > 60; Glucose 101 mg/dL (70-99); Osmolality Calculated 289 mOsm/kg (285-295); Potassium 3.9 mmol/L (3.5-5.1); Sodium 139 mmol/L (136-145)
== END 2022-01-02 13:38 | disposition home or self-care (01) ==
PROVIDERS: PCP Internal Medicine; Visit Provider Nurse Practitioner Adult Health
DX: R25.2 Cramp and spasm (principal)
CPT/HCPCS: 36415; 80048

== ENCOUNTER 2022-02-03 10:17 | Observation (INO) | payer BC, SELFPAY ==
[2022-02-03] VITALS (16 sets, daily range): BP systolic 118–155; BP diastolic 74–111; PULSE 67–94; RESP 16–20; TEMP 36.4–37; O2SAT 97–100; BMI 39.9
--- NOTE | ~2022-02-03 | CT_ITS ---
EXAMINATION: CT abdomen pelvis w con DATE: 02/03/2022 11:44 INDICATION: Left lower quadrant abdominal pain TECHNIQUE: Computed tomography (CT) of the abdomen and pelvis was performed with 100 mL Omnipaque-350 intravenous contrast. Automated exposure control and iterative reconstruction technique were employe d. The dose-length product was 1259.02 mGy-cm. COMPARISON: None FINDINGS: Lung bases are clear. Mild cardiomegaly. Atherosclerotic coronary artery calcification. No pericardia l or pleural effusion. Small sliding-type hiatal hernia versus wall thickening in the distalmost esop hagus. Gallbladder is dilated to 4.7 cm but without evident wall thickening or pericholecystic inflam matory stranding to suggest acute cholecystitis. No intra or extrahepatic biliary ductal dilation. Di ffuse hepatic steatosis. Spleen, pancreas and left adrenal gland are normal. Unchanged 1.8 cm right a drenal nodule with low density on prior CT dated 01/19/2021 consistent with an adenoma. Couple bilater al subcentimeter renal cysts. There is mild colonic diverticulosis with a sigmoid predominance. Ther e is no adjacent inflammatory change to suggest diverticulitis. Small bowel and appendix are normal. Chronic haziness to the rim of the mesentery without associated pathologically enlarged abdominal or pelvic lymphadenopathy. Bladder is normal. Prostatomegaly measuring 4.9 x 4.0 cm. No free intraperit ham[place] gas or fluid. Mild lower thoracic spondylosis. Small bone island at T10. IMPRESSION: 1. No acute intra-abdominal/pelvic process. 2. Mild cardiomegaly. 3. Small sliding-type hiatal hernia versus esophagitis with mild wall thickening at the distal esopha oleg. 4. Prostatomegaly. Reviewed, dictated and finalized at location A. IMPRESSION: 1. No acute intra-abdominal/pelvic process. 2. Mild cardiomegaly. 3. Small sliding-type hiatal hernia versus esophagitis with mild wall thickenin g at the distal esophagus. 4. Prostatomegaly.
--- NOTE | ~2022-02-03 | XR_ITS ---
EXAMINATION: XR chest 2V DATE: 02/03/2022 11:32 INDICATION: Mid chest pain TECHNIQUE: frontal and lateral views of the chest were obtained. COMPARISON: Chest radiograph dated 06/30/2021 FINDINGS: Unchanged mild elevation the right hemidiaphragm. No airspace opacities, pulmonary edema, pleural eff usion or pneumothorax. Mild cardiomegaly. The thoracic spondylosis. IMPRESSION: 1. Unchanged mild elevation of the right hemidiaphragm. No acute cardiopulmonary disease. Reviewed, dictated and finalized at location A. IMPRESSION: 1. Unchanged mild elevation of the right hemidiaphragm. No acute cardiopulmonar y disease.
--- NOTE | 2022-02-03 10:31 | ED.CHESTPAIN ---
HPI - Chest Pain General Chief Complaint: Chest Pain Stated Complaint: BILATERAL ARM TINGLING/CHEST PAIN Time Seen by Provider: 02/03/22 10:20 Source: patient Mode of arrival: ambulatory Limitations: no limitations History of Present Illness HPI narrative: 36 years old white male came to the emergency room by private car with his complaining of hot flashes and intermittent diaphoresis plus left lower quadrant pain started 4 days ago. Took pain, pressure type mid chest, intermittent. Patient denies aggravating or relieving factors. History of coronary stent January 2021, currently on aspirin. Related Data Home Medications Medication Instructions Recorded Confirmed fluoxetine 40 mg capsule 40 mg PO DAILY 01/19/21 05/13/21 losartan 100 mg tablet 100 mg PO DAILY 01/19/21 05/13/21 sulfacetamide sodium 10 % eye drops drp 06/30/21 Allergies Allergy/AdvReac Type Severity Reaction Status Date / Time No Known Allergies Allergy Verified 06/30/21 08:51 Review of Systems Review of Systems: All systems reviewed & are unremarkable except as noted in HPI and below PMFSH Past Medical History Medical History Hypertension SOB (shortness of breath) on exertion Substance abuse Surgical History Surgical History H/O hernia repair H/O knee surgery On the right Family History Family History Mother Thyroid disease Father Diabetes mellitus Cancer Social History Social History Social History: The patient is and has 2 children. 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 The patient is a full code. He stated that his would be the durable power business attorney for healthcare. The patient uses chewing tobacco. He does not use any alcohol or illicit drugs. Tobacco type: smokeless tobacco Smokeless tobacco user: chewing tobacco Alcohol intake: current Drinks per week: 1 Alcohol use details: occasionally Substance use: current Substance use type: crack/cocaine Gender identity (if verbalized by the patient): Male Spiritual care concerns: No Course Vital Signs Vital signs: Vital Signs Temperature 36.4 C 02/03/22 10:51 Pulse Rate 85 02/03/22 10:51 Respiratory Rate 20 02/03/22 10:51 Blood Pressure 155/111 H 02/03/22 10:51 Pulse Oximetry 99 02/03/22 10:51 Temperature 36.4 C 02/03/22 10:51 Pulse Rate 89 02/03/22 11:32 Respiratory Rate 18 02/03/22 11:32 Blood Pressure 155/100 H 02/03/22 11:32 Pulse Oximetry 98 02/03/22 11:32 Oxygen Delivery Room Air 02/03/22 11:31 MDM - Chest Pain Lab Data Result diagrams: 02/03/22 10:58 02/03/22 10:58 Labs: Lab Results 02/03/22 02/03/22 02/03/22 Range/Units 10:58 10:58 10:58 WBC 7.3 (4.5-10.0) K/mm3 RBC 5.37 (4.6-6.20) M/mm3 Hgb 16.1 (14.0-18.0) g/dL Hct 45.1 (42.0-52.0) % MCV 84.0 (80-100) fl MCH 30.0 (26-34) pg MCHC 35.7 (32-36) g/dl RDW 13.0 (11.5-14.5) % Plt Count 316 (150-375) k/mm3 MPV 8.3 (7.4-10.4) fl Immature Gran % (Auto) 0.5 (0-0.5) % Neut % (Auto) 68.9 (45.5-73.1) % Lymph % (Auto) 22.4 (18.3-44.2) % [place]in % (Auto) 7.0 (2.6-8.5) % Eos % (Auto) 0.8 (0-4.4) % Baso % (Auto) 0.4 (0.2-1.2) % Lymph # (Auto) 1.64 (0.9-3.2) K/mm3 Hardin # (Auto) 0.5 (0.1-0.6) K/mm3 Eos # (Auto) 0.1 (0-0.3) K/mm3 Baso # (Auto) 0.0 (0.0-0.1) K/mm3 Abs Immat Gran (auto) 0.04 H (0.00-0.031) K/mm3 Absolute Neuts (auto) 5.1 (1.3-6.7) K/mm3 Absolute Nucleated RBC 0.0 (0.0-0.012) K/mm3 Nucleated RBC % 0.0 (0.0-0.2) % PT 12.6 (11.1-14.7) Seconds INR 1.0 APTT 27.4 (22.3-36.8) SECONDS Sodium 140 (137-145) mmol/L Potassium 3.3 L (3.4-5.0) mmol/L Chloride 106 (
--- NOTE | 2022-02-03 10:41 | ECG_ITS ---
Measurements Intervals [place] Rate: 86 P: 32 RI: 211 QRS: -56 QRSD: 146 T: 66 QT: 418 QTc: 502 Interpretive Statements SINUS RHYTHM WITH FIRST DEGREE AV BLOCK POSSIBLE LEFT ATRIAL ENLARGEMENT [-0.1mV P WAVE IN V1/V2] INTRAVENTRICULAR CONDUCTION DELAY [130+ ms QRS DURATION] COMPARED TO ECG 06/30/2021 08:29:19 SINUS RHYTHM NOW PRESENT FIRST DEGREE AV BLOCK NOW PRESENT Electronically Signed On 02-03-2022 19:46:30 CDT by Sujey Bermudez M.D.
[2022-02-03 11:04] LABS: Basophils Percent Auto 0.4 % (0.2-1.2); Eosinophils Absolute Auto 0.1 K/mm3 (0-0.3); Eosinophils Percent Auto 0.8 % (0-4.4); Hematocrit 45.1 % (42.0-52.0); Hemoglobin 16.1 g/dL (14.0-18.0); Immature Granulocyte Absolute 0.04 K/mm3 (0.00-0.031); Immature Granulocyte Percent A 0.5 % (0-0.5); Lymphocytes Absolute Auto 1.64 K/mm3 (0.9-3.2); Lymphocytes Percent Auto 22.4 % (18.3-44.2); Mean Corpuscular HGB Conc 35.7 g/dl (32-36); Mean Platelet Volume 8.3 fl (7.4-10.4); Monocytes Absolute Auto 0.5 K/mm3 (0.1-0.6); Neutrophils Absolute Auto 5.1 K/mm3 (1.3-6.7); Neutrophils Percent Auto 68.9 % (45.5-73.1); Platelet Count Result 316 k/mm3 (150-375); Red Blood Count 5.37 M/mm3 (4.6-6.20); White Blood Count 7.3 K/mm3 (4.5-10.0)
[2022-02-03 11:15] LABS: Alanine Aminotransferase 32 U/L (6-50); Albumin Level 4.8 g/dL (3.5-5.1); Alkaline Phosphatase 93 U/L (38-126); Anion Gap 13 mmol/L (8-16); Aspartate Amino Transferase 30 U/L (17-59); Bilirubin,Total 1.1 mg/dL (0.2-1.3); Blood Urea Nitrogen 17 mg/dL (9-20); Calcium 8.9 mg/dL (8.4-10.2); Carbon Dioxide 21 mmol/L (22-30); Chloride 106 mmol/L (98-107); Estimated Glomerular Filt Rate > 60; Glucose 123 mg/dL (65-110); Lipase 109 U/L (23-300); Potassium 3.3 mmol/L (3.4-5.0); Prothrombin Time 12.6 Seconds (11.1-14.7); Sodium 140 mmol/L (137-145)
[2022-02-03 11:16] LABS: Partial Thromboplastin Time 27.4 SECONDS (22.3-36.8)
[2022-02-03 11:26] LABS: Troponin I < 0.012 ng/mL (0.000-0.034)
[2022-02-03] MEDS: METOPROLOL TARTRATE 50 MG TAB 25 MG PO (13:09)
[2022-02-03] MEDS: POTASSIUM CHLORIDE 20 MEQ PACKET (FOR LIQUID) 40 MEQ PO (13:09)
--- NOTE | 2022-02-03 13:30 | PM.IMHP ---
H&P: HPI History of Present Illness Date/Time: 02/03/22 13:30 Chief Complaint: Chest/epigastric pain. Narrative: This is a pleasant 46-year-old male with coronary artery disease, anterior STEMI with total occlusion of the mid to distal segment of the LAD status post drug-eluting stent in January 2021, ischemic cardiomyopathy with EF as low as 25 to 30% (improved on recent echocardiogram and no longer on a LifeVest), and hypertension who presented to the ED for evaluation of chest/epigastric pain. He started not feeling well this past with aching discomfort in the mid to low back which has been pretty consistent though not severe enough for him to take analgesics. Later that evening he developed nausea and diarrhea and his appetite has not been great since that time. Last night he felt much worse with diffuse sweats, nausea, and epigastric pain like I swallowed a hot poker and he took Tums and Pepto-Bismol without much help. While in the ER today he reported intermittent mid chest pressure although at the time my evaluation his symptoms seem to be more GI related. He goes on to say however that he does not typically suffer from heartburn, indigestion, or the like and in fact he is a fan of hot and spicy food. Workup in the ED was reassuring aside from mild hypokalemia. EKG did not show any acute ST segment changes and his initial troponins have been negative. CT of the abdomen and pelvis showed no acute intra-abdominal or pelvic process but did note findings of small sliding-type hiatal hernia versus esophagitis with mild wall thickening at the distal esophagus. Due to his cardiac history he is being admitted for observation. Review of Systems Review of Systems: Twelve systems were reviewed. Weight has remained stable. He has had chills and sweats but no fever. No cold or flu symptoms. No dysphagia. No significant issues with heartburn or indigestion. He denies melena and hematochezia. No hematemesis. He urinates frequently, including upwards of 5 to 6 times a night which he has thus far blamed on diuretics. He has not noticed slow stream, dribbling, or the like. No syncope or presyncope. No recent cold or flu symptoms. Positive apnea link last year though he has not yet had a follow-up outpatient sleep study. Except as documented, all other systems were reviewed and are negative. [facility] Past Medical History Medical History (Updated 02/03/22 @ 19:25 by Kathy Martinez PA-C) Coronary artery disease Hypertension Ischemic cardiomyopathy ST elevation (STEMI) myocardial infarction (01/2021) Substance abuse Tobacco abuse Surgical History Surgical History (Updated 02/03/22 @ 13:09 by Kathy Martinez PA-C) History of hernia repair History of right knee surgery Family History Family History Mother Thyroid disease TIA (transient ischemic attack) Father Diabetes mellitus Cancer Other Family history of premature coronary heart disease Social History Social History (Updated 02/03/22 @ 19:20 by Kathy Martinez PA-C) Social History: Surrogate medical decision maker: Ashanti Roberts, spouse. Code status: Full code. Tobacco type: smokeless tobacco Smokeless tobacco user: chewing tobacco Alcohol intake: never Drinks per week: 1 Alcohol use details: Social alcohol use in moderation. Substance use: former Substance use type: crack/cocaine Spiritual care concerns: No Has the Lack of Transportation Kept You From Medical Appointments or From Getting Medications?: No Within the Past 12 Months, Were You Worried Whether Your Food Would Run Out Before You Got Money to Buy More?: Never True What is Your Housing Situation Today?: I Have Housing Are You Worried That in the Next 2 Months, You May Not Have Your Own Housing to Live In?: No Do You Have Trouble Paying Your Heating Or Electricity Bill?: No Do You Have Trouble Paying For Medicines?
--- NOTE | 2022-02-03 13:49 | ADMGEN ---
This patient, Chele Roberts, was admitted to IMU Room 211-01. Patient/family oriented to hospital policies and general routines including ID bracelet, bed and alarms, visiting hours, pain management, procedures, bathroom and other care routines, personal items, smoking policy, room service/diet, and visiting hours. Information on how to activate the Rapid Response Team has been discussed. Patient/Family are encouraged to report perceived risks to care and to ask questions if they do not understand what they are told or what they should do.
[2022-02-03 14:36] LABS: Troponin I < 0.012 ng/mL (0.000-0.034)
[2022-02-03] MEDS: POTASSIUM CHLORIDE 20 MEQ TABLET.ER PO (16:58)
[2022-02-03 17:40] LABS: Troponin I < 0.012 ng/mL (0.000-0.034)
[2022-02-03] MEDS: PANTOPRAZOLE SODIUM IV 40 MG VIAL IV PUSH (20:57)
[2022-02-03] MEDS: carvediloL 6.25 MG TABLET PO (20:57)
[2022-02-04] VITALS (20 sets, daily range): BP systolic 120–162; BP diastolic 61–90; PULSE 62–104; RESP 16–26; TEMP 36.2–36.9; O2SAT 96–100
[2022-02-04 05:14] LABS: Anion Gap 14 mmol/L (8-16); Blood Urea Nitrogen 20 mg/dL (9-20); Calcium 8.8 mg/dL (8.4-10.2); Carbon Dioxide 26 mmol/L (22-30); Chloride 103 mmol/L (98-107); Estimated CRCL calculation 61 ml/min; Estimated Glomerular Filt Rate 54; Glucose 104 mg/dL (65-110); Potassium 3.4 mmol/L (3.4-5.0); Sodium 143 mmol/L (137-145)
[2022-02-04] MEDS: ASPIRIN 81 MG ENTERIC TABLET PO (08:48)
[2022-02-04] MEDS: SACUBITRIL/VALSARTAN 24-26 MG TABLET 1 TAB PO ×2 (08:48→17:32)
[2022-02-04] MEDS: ATORVASTATIN 40 MG TABLET 80 MG PO (08:48)
[2022-02-04] MEDS: FLUoxetine HCL 20 MG CAPSULE 40 MG PO (08:49)
[2022-02-04] MEDS: CLOPIDOGREL BISULFATE 75 MG TABLET PO (08:49)
[2022-02-04] MEDS: FUROSEMIDE 40 MG TABLET PO (08:49)
[2022-02-04] MEDS: SPIRONOLACTONE 25 MG TABLET PO (08:49)
[2022-02-04] MEDS: amLODIPine BESYLATE 5 MG TABLET PO (08:49)
[2022-02-04] MEDS: carvediloL 6.25 MG TABLET PO ×2 (08:49→20:51)
[2022-02-04] MEDS: PANTOPRAZOLE SODIUM IV 40 MG VIAL IV PUSH ×2 (08:50→20:52)
--- NOTE | 2022-02-04 09:18 | WPDGICN ---
Assessment and Plan Assessment and plan (1) Chest pain: Code(s): R07.9 - Chest pain, unspecified Status: Acute Assessment and Plan: acute cardiac process has been ruled out. Troponins are all normal. (2) Abnormal CT scan, gastrointestinal tract: Code(s): R93.3 - Abnormal findings on diagnostic imaging of other parts of digestive tract Status: Acute Assessment and Plan: CT scan shows suspected esophagitis and mild wall thickening in the distal esophagus as well as a small sliding hiatal hernia. Cardiomyopathy is also observed (3) Abdominal pain: Code(s): R10.9 - Unspecified abdominal pain Status: Acute Assessment and Plan: he had some lower abdominal pain apparently but this is no longer present. he was scheduled for EGD today to rule out gastrointestinal process if negative we could advance his diet and continue workup as an outpatient. (4) Cardiomyopathy: Code(s): I42.9 - Cardiomyopathy, unspecified Status: Acute Assessment and Plan: According to the record his ejection fraction had been in the upper 20s. He no longer needs to use a life vest GI Consult Note Consult date/time: 02/04/22 09:18 HPI: Chele Roberts is a 46 year old male Who was admitted yesterIMPRESSION: day to the emergency room. He was complaining of upper abdominal pain and chest pain. He also was developing sweating and hot feeling throughout his body when he would eat over the last few days. This all began on when he had an episode of vomiting. Since then he has been uncomfortable. He has been able to keep food down but develops hot sweats he he also had left lower quadrant pain at the onset but has not had diarrhea. He has not been traveling. Has not been on antibiotics. He does take aspirin and Plavix for coronary artery disease. Cardiac evaluation so far has been negative. he had also complained of left lower quadrant pain which was the primary reason for the CT scan. He denies having diarrhea. He has a history of coronary artery disease, anterior STEMI with total occlusion of mid LAD, status post stent 1 year ago. He also has ischemic cardiomyopathy with ejection fraction in the high 20s. He is on diuretics and states he urinates about fiber [address] scan of the abdomen showed: 1. No acute intra-abdominal/pelvic process. 2. Mild cardiomegaly. 3. Small sliding-type hiatal hernia versus esophagitis with mild wall thickening at the distal esophagus. 4. Prostatomegaly. Review of Systems Review of Systems: All systems reviewed & are unremarkable except as noted in HPI and below [facility] Past Medical History Medical History Coronary artery disease Hypertension Ischemic cardiomyopathy ST elevation (STEMI) myocardial infarction (01/2021) Substance abuse Tobacco abuse Surgical History Surgical History History of hernia repair History of right knee surgery Family History Family History Mother Thyroid disease TIA (transient ischemic attack) Father Diabetes mellitus Cancer Other Family history of premature coronary heart disease Social History Social History Social History: Surrogate medical decision maker: Ashanti Roberts, spouse. Code status: Full code. Tobacco type: smokeless tobacco Smokeless tobacco user: chewing tobacco Alcohol intake: never Drinks per week: 1 Alcohol use details: Social alcohol use in moderation. Substance use: former Substance use type: crack/cocaine Spiritual care concerns: No Has the Lack of Transportation Kept You From Medical Appointments or From Getting Medications?: No Within the Past 12 Months, Were You Worried Whether Your Food Would Run Out Before You Got Money to Buy
--- NOTE | 2022-02-04 10:52 | PM.CNCAR ---
Assessment and Plan Assessment and plan (1) Chest pain: Code(s): R07.9 - Chest pain, unspecified Status: Acute Assessment and Plan: ECG without ischemic changes. Troponins negative. Symptoms are more abdominal rather than chest, along with nausea/vomiting when he ate certain foods. Possibly GI - GI already consulted and planning for EGD today. (2) Epigastric pain: Code(s): R10.13 - Epigastric pain Status: Acute Assessment and Plan: As per GI (3) Ischemic cardiomyopathy: Code(s): I25.5 - Ischemic cardiomyopathy Status: Acute Assessment and Plan: Last TTE reviewed. Repeat TTE pending. Continue home doses of Aldactone, Entresto, Lasix, Coreg Patient is compensated on exam. (4) Coronary artery disease: Code(s): I25.10 - Atherosclerotic heart disease of [place] coronary artery without angina pectoris Status: Acute Assessment and Plan: S/p STEMI in 01/2021 as noted in HPI. Continue ASA, statin, Plavix. History of Present Illness History of Present Illness Consult date/time: 02/04/22 10:52 Requesting physician: Grisel Mcnair MD Consult reason: chest pain Reason For Visit: chest pain,abdominal pain,hypokalemia Narrative: This is a 46 year old male with a history of CAD, HTN, HLD, DM and CHF who we are being consulted for chest pain. Patient is known to us previously from an anterior STEMI 01/2021, patient underwent emergent cardiac cath which showed totally occluded LAD s/p PCI with PHIL x 1. Other coronary findings included 60-70% lesions in small LCX, ramus with MLI, RCA with MLI. Given the small LCX vessel, his disease in that vessel to be managed medically. Echocardiogram done at that time showed LVEF 25-30%. Patient states he has been compliant with his cardiac medications. Did run out of his Plavix for about 4 days last week. Patient reports that on , he began having nausea/vomiting and abdominal pain. Abdominal pain worsened after eating certain foods, like nachos with jalapenos, or hot sauce. On Friday, patient developed some chest pain that last for a little while. No radiation. Patient has not had any further episodes of chest pain. Reports that his only complaint is left lower quadrant abdominal pain. Cardiac evaluation shows EKG without ischemic changes. Troponins negative. Review of Systems Constitutional: Constitutional: Denies body ache(s), Denies chills and Denies night sweats Eyes: Eyes: Reports no additional eye complaints ENT: Denies dysphagia Cardiovascular: Cardiovascular: Denies no additional cardiovascular complaints, Denies leg edema, Denies lightheadedness and Denies palpitations Respiratory: Respiratory: Denies dyspnea and Denies dyspnea on exertion Gastrointestinal: Gastrointestinal: Reports abdominal pain, Reports nausea and Reports vomiting Musculoskeletal: Musculoskeletal: Reports no additional musculoskeletal complaints Integumentary/Breasts: Skin/Breast: Reports system reviewed and no additional complaints, except as docu Neurologic: Reports system reviewed and no additional complaints, except as documented Psychiatric: Psychiatric: Reports no additional psychiatric complaints Hematologic/Lymphatic: Hematologic/Lymphatic: Reports no additional hematologic/lymphatic complaints [facility] Past Medical History Medical History Coronary artery disease Hypertension Ischemic cardiomyopathy ST elevation (STEMI) myocardial infarction (01/2021) Substance abuse Tobacco abuse Surgical History Surgical History History of hernia repair History of right knee surgery Family History Family History Mother Thyroid disease TIA (transient ischemic attack) Father Diabetes mellitus Cancer Other Family history of premature coronary heart disease Soci
--- NOTE | 2022-02-04 11:15 | PM.IMPN ---
Progress Note: A&P Assessment and Plan (1) Chest pain: Code(s): R07.9 - Chest pain, unspecified Status: Acute (2) Epigastric pain: Code(s): R10.13 - Epigastric pain Status: Acute (3) Hypokalemia: Code(s): E87.6 - Hypokalemia Status: Acute (4) Coronary artery disease: Code(s): I25.10 - Atherosclerotic heart disease of [place] coronary artery without angina pectoris Status: Acute (5) Ischemic cardiomyopathy: Code(s): I25.5 - Ischemic cardiomyopathy Status: Acute (6) Suspected sleep apnea: Code(s): R29.818 - Other symptoms and signs involving the nervous system Status: Acute (7) Enlarged prostate: Code(s): N40.0 - Benign prostatic hyperplasia without lower urinary tract symptoms Status: Acute Plan # chest pain/abdominal pain: EKD with out ischemic changes. trop negative. food related and hence GI related symptom suggestive. GI consulted. going for EGD today. CT abdomen with findings of esophagitis. on ppi bid.lipase normal. tropin x 3 negative. # CAD with STEMI in jan 2021 s/p stent 0ct 2020. on aspirin, plavix. statin. bb. # cardiomyopathy: clinically compensated. used to have low EF 25-30% but reports it has improved to 36% . no life vest since then. repeat echo planned. on aldactone, entresto, lasix, coreg # HTN # HLP # TYpe 2 dm: # positive apena link: [facility] PCP for follow up # prostatomegaly : fu with PCP as op basis. # DVT proph: SCDs Subjective Date/time seen: 02/04/22 11:15 Interval history: feelig better today. abdominal pain and chest pain. nasuea vomitign and diarrhea. diet with spicy food lately. going for egd today. Review of Systems Review of Systems: All systems reviewed & are unremarkable except as noted in HPI and below Exam Narrative: General: Well-developed male sitting up in bed no distress. HEENT: PERRL, EOMI. Sclera anicteric. Oral mucosa moist. Oropharynx clear. Neck: Supple. Respiratory: Lungs are clear to auscultation bilaterally. Cardiovascular: Regular rate and rhythm with S1-S2. Gastrointestinal: Abdomen is soft And nondistended with positive bowel sounds. Scars from prior hernia surgery noted. He is midly tender to palpation epigastric region. No guarding or rebound tenderness. Skin: Warm and dry. Multiple tattoos. Extremities: No cyanosis, clubbing, or edema. Radial and pedal pulses intact. Neurological: Alert. Cranial nerves 2-12 are grossly intact. No gross focal deficits to casual conversation. Psychiatric: Pleasant and cooperative with normal mood and affect. Judgment and insight intact. Objective Data Vital Signs Vital Signs: Vital Signs - 24 hr 02/03/22 11:31 02/03/22 11:32 02/03/22 12:53 Temperature Pulse Rate 89 77 Respiratory Rate 18 Blood Pressure 155/100 H Pulse Oximetry 98 98 Oxygen Delivery Room Air 02/03/22 12:54 02/03/22 13:09 02/03/22 13:36 Temperature Pulse Rate 77 82 79 Respiratory Rate 18 18 Blood Pressure 143/98 H 148/89 H Pulse Oximetry 98 97 Oxygen Delivery 02/03/22 14:00 02/03/22 16:00 02/03/22 18:00 Temperature Pulse Rate 74 79 84 Respiratory Rate Blood Pressure Pulse Oximetry Oxygen Delivery 02/03/22 16:00 02/03/22 20:03 02/03/22 20:57 Temperature 97.8 F 97.8 F Pulse Rate 94 74 76 Respiratory Rate 16 17 Blood Pressure 122/74 143/81 H Pulse Oximetry 99 99 Oxygen Delivery 02/03/22 20:00 02/03/22 20:00 02/03/22 22:00 Temperature Pulse Rate 79 69 68 Respiratory Rate 17 Blood Pressure Pulse Oximetry 99 Oxygen Delivery Room Air 02/03/22 23:24 02/04/22 00:00 02/04/22 00:00 Temperature 98.6 F Pulse Rate 67 63 63 Respiratory Rate 20 20 Blood Pressure 118/98 H Pulse Oximetry 100 100 Oxygen Delivery Room Air 02/04/22 02:00 02/04/22 03:38 02/04/22 04:00 Temperature Pulse Rate 63 63 62 Respiratory Rate 20 Blood Pressure Pulse Oximetry
[2022-02-04] MEDS: LACTATED RINGERS 1,000 ML 150 ML IV CONT (14:29)
--- NOTE | 2022-02-04 14:34 | WPDANESEPPF ---
Anes - Initial Pre Proc Eval Procedure: Operation Date: 02/04/22 16:45 Proposed Procedures p Esophagogastroduodenoscopy EGD - Randolph Barnes MD Date/Time: 02/04/22 14:34 Surgeon: Rik Perera MD Pre Op Diagnosis: chest pain,abdominal pain,hypokalemia Patient Data Age: 46 Gender: M Height: 1.57 m Weight: 103.4 kg Last Vital Signs Temp 98.5 F 02/04/22 11:29 Pulse 104 H 02/04/22 12:00 Resp 16 02/04/22 11:29 BP 129/82 02/04/22 11:29 Pulse Ox 98 02/04/22 11:29 O2 Del Method Room Air 02/04/22 12:00 Allergies Allergy/AdvReac Type Severity Reaction Status Date / Time No Known Allergies Allergy Verified 06/30/21 08:51 Home Medications Medication Instructions Recorded Confirmed Type fluoxetine 40 mg capsule 40 mg PO DAILY 01/19/21 02/03/22 History amlodipine 5 mg tablet (Norvasc) 5 mg PO QAM 30 days #30 tabs 01/22/21 02/03/22 Rx aspirin 81 mg tablet,delayed 81 mg PO QAM 30 days #30 tabs 01/22/21 02/03/22 Rx release carvedilol 6.25 mg tablet (Coreg) 6.25 mg PO Q12HR 30 days #60 tabs 01/22/21 02/03/22 Rx clopidogrel 75 mg tablet (Plavix) 75 mg PO DAILY #30 tabs 01/22/21 02/03/22 Rx furosemide 40 mg tablet 40 mg PO DAILY #30 tabs 01/22/21 02/03/22 Rx spironolactone 25 mg tablet 25 mg PO QAM 30 days #30 tabs 01/22/21 02/03/22 Rx atorvastatin 40 mg tablet 80 mg PO DAILY 02/03/22 02/03/22 History sacubitril 24 mg-valsartan 26 mg 1 tablet PO BID 02/03/22 02/03/22 History tablet (Entresto) Laboratory Tests 02/03/22 02/03/22 02/04/22 14:09 17:00 04:32 Sodium 143 mmol/L mmol/L (137-145) Potassium 3.4 mmol/L mmol/L (3.4-5.0) Chloride 103 mmol/L mmol/L (98-107) Carbon Dioxide 26 mmol/L mmol/L (22-30) Anion Gap 14 mmol/L mmol/L (8-16) BUN 20 mg/dL mg/dL (9-20) Creatinine 1.40 mg/dL H mg/dL (0.7-1.3) Estim Creat Clear Calc 61 ml/min ml/min Estimated GFR 54 L (59 - ) Glucose 104 mg/dL mg/dL (65-110) Calcium 8.8 mg/dL mg/dL (8.4-10.2) Troponin I < 0.012 ng/mL ng/mL < 0.012 ng/mL ng/mL (0.000-0.034) (0.000-0.034) Patient hx anesthesia problems: none Family hx anesthesia problems: none Results Review: All pre-operative results and documents have been reviewed as part of the pre-operative evaluation. [facility] Past Medical History Medical History Coronary artery disease Hypertension Ischemic cardiomyopathy ST elevation (STEMI) myocardial infarction (01/2021) Substance abuse Tobacco abuse Surgical History Surgical History History of hernia repair History of right knee surgery Family History Family History Mother Thyroid disease TIA (transient ischemic attack) Father Diabetes mellitus Cancer Other Family history of premature coronary heart disease Social History Social History Social History: Surrogate medical decision maker: Ashanti White, spouse. Code status: Full code. Tobacco type: smokeless tobacco Smokeless tobacco user: chewing tobacco Alcohol intake: never Drinks per week: 1 Alcohol use details: Social alcohol use in moderation. Substance use: former Substance use type: crack/cocaine Spiritual care concerns: No Has the Lack of Transportation Kept You From Medical Appointments or From Getting Medications?: No Within the Past 12 Months, Were You Worried Whether Your Food Would Run Out Before You Got Money to Buy More?: Never True What is Your Housing Situation Today?: I Have Housing Are You Worried That in the Next 2 Months, You May Not Have Your Own Housing to Live In?: No Do You Have Trouble Paying Your Heating Or Electricity Bill?: No Do You Have Trouble Paying For Medicines?: No A
[2022-02-05] VITALS (11 sets, daily range): BP systolic 130–137; BP diastolic 75–91; PULSE 63–99; RESP 14–18; TEMP 36.4–36.9; O2SAT 97–100
--- NOTE | 2022-02-05 | ECHO_ITS ---
Patient Info Name: Chele Roberts Age: 46 years : 1975 Gender: Male Ht: 62 in Wt: 227 lbs BSA: 2.18 m2 HR: 68 bpm BP: 130 / 76 mmHg Heart Rhythm: Sinus Rhythm Technical Quality: Good Exam Date: 02/05/2022 9:22 AM Exam Location: [facility] Patient Status: Inpatient Admit Date: 02/03/2022 Staff Ordering Physician: Villa Duke MD (jayla/yasmin) Dairy Clerk: Cristela Good RDCS Attending Provider: Rik Perera MD Referring Physician: Srikanth MOTA; Exam Type: CA echo doppler color flow Study Info Indications I25.5 - Ischemic cardiomyopathy R07.9 - Chest pain, unspecified Complete two-dimensional, color flow and Doppler transthoracic echocardiogram is performed. Summary 1. Complete two-dimensional, color flow and Doppler transthoracic echocardiogram is performed. 2. Left ventricular chamber dimension is moderately enlarged. 3. Left ventricular systolic function is moderately reduced, estimated at 30-35%. 4. There is moderately increased left ventricular wall thickness. 5. The left ventricular diastolic function is grade I diastolic dysfunction. 6. Left atrial chamber dimension is mildly enlarged. 7. Right atrial chamber dimension is mildly enlarged. 8. There is mild mitral valve regurgitation. Left Ventricle Left ventricular chamber dimension is moderately enlarged. Left ventricular systolic function is moderately reduced, estimated at 30-35%. There is moderately increased left ventricular wall thickness. The left ventricular diastolic function is grade I diastolic dysfunction. Right Ventricle Right ventricular chamber dimension is normal. Right ventricular systolic function is normal. Left Atria Left atrial chamber dimension is mildly enlarged. Right Atria Right atrial chamber dimension is mildly enlarged. Atrial Septum Intact interatrial septum visualized by color flow imaging. Aortic Valve The aortic valve is trileaflet. There is no aortic valve stenosis. There is no aortic valve regurgitation. Pulmonic Valve The pulmonic valve is not well visualized. Mitral Valve The mitral valve has normal leaflets. There is no mitral valve stenosis. There is mild mitral valve regurgitation. Tricuspid Valve The tricuspid valve leaflets are normal. There is trace tricuspid valve regurgitation. Pericardium/Pleural There is no pericardial effusion. Inferior Vena Cava Normal inferior vena cava with >50% collapse upon inspiration consistent with normal right atrial pressure. Aorta The aortic root size at the sinus of Valsalva is normal. Left Ventricular Outflow Tract Name Value Normal LVOT 2D LVOT Diameter 2.3 cm LVOT Doppler LVOT Peak Gradient 3 mmHg LVOT Mean Gradient 2 mmHg LVOT VTI 14 cm LVOT VTI/AV VTI Ratio 0.8 LVOT Stroke Volume 59 ml LVOT CO 4.0 l/min LVOT CI 1.8 l/min/m2 Pulmonic Valve
[2022-02-05 05:10] LABS: Basophils Percent Auto 0.5 % (0.2-1.2); Eosinophils Absolute Auto 0.2 K/mm3 (0-0.3); Eosinophils Percent Auto 1.7 % (0-4.4); Hematocrit 43.4 % (42.0-52.0); Hemoglobin 15.1 g/dL (14.0-18.0); Immature Granulocyte Absolute 0.04 K/mm3 (0.00-0.031); Immature Granulocyte Percent A 0.5 % (0-0.5); Lymphocytes Absolute Auto 2.61 K/mm3 (0.9-3.2); Lymphocytes Percent Auto 29.4 % (18.3-44.2); Mean Corpuscular HGB Conc 34.8 g/dl (32-36); Mean Corpuscular Hemoglobin 30.1 pg (26-34); Mean Corpuscular Volume 86.6 fl (80-100); Mean Platelet Volume 8.5 fl (7.4-10.4); Monocytes Absolute Auto 0.7 K/mm3 (0.1-0.6); Monocytes Percent Auto 7.6 % (2.6-8.5); Neutrophils Absolute Auto 5.4 K/mm3 (1.3-6.7); Neutrophils Percent Auto 60.3 % (45.5-73.1); Platelet Count Result 281 k/mm3 (150-375); Red Blood Count 5.01 M/mm3 (4.6-6.20); Red Cell Distribution Width 13.2 % (11.5-14.5); White Blood Count 8.9 K/mm3 (4.5-10.0)
[2022-02-05 05:21] LABS: Alanine Aminotransferase 28 U/L (6-50); Alkaline Phosphatase 68 U/L (38-126); Anion Gap 12 mmol/L (8-16); Aspartate Amino Transferase 25 U/L (17-59); Bilirubin,Total 0.8 mg/dL (0.2-1.3); Blood Urea Nitrogen 18 mg/dL (9-20); Calcium 8.6 mg/dL (8.4-10.2); Carbon Dioxide 27 mmol/L (22-30); Chloride 102 mmol/L (98-107); Estimated CRCL calculation 61 ml/min; Estimated Glomerular Filt Rate 54; Glucose 102 mg/dL (65-110); Magnesium 2.2 mg/dL (1.6-2.3); Potassium 3.3 mmol/L (3.4-5.0); Sodium 141 mmol/L (137-145)
[2022-02-05] MEDS: POTASSIUM CHLORIDE 20 MEQ TABLET 40 MEQ PO (09:45)
[2022-02-05] MEDS: ASPIRIN 81 MG ENTERIC TABLET PO (09:46)
[2022-02-05] MEDS: amLODIPine BESYLATE 5 MG TABLET PO (09:46)
[2022-02-05] MEDS: FUROSEMIDE 40 MG TABLET PO (09:46)
[2022-02-05] MEDS: FLUoxetine HCL 20 MG CAPSULE 40 MG PO (09:46)
[2022-02-05] MEDS: SPIRONOLACTONE 25 MG TABLET PO (09:46)
[2022-02-05] MEDS: SACUBITRIL/VALSARTAN 24-26 MG TABLET 1 TAB PO (09:46)
[2022-02-05] MEDS: ATORVASTATIN 40 MG TABLET 80 MG PO (09:46)
[2022-02-05] MEDS: CLOPIDOGREL BISULFATE 75 MG TABLET PO (09:46)
[2022-02-05] MEDS: PANTOPRAZOLE SODIUM IV 40 MG VIAL IV PUSH (09:47)
[2022-02-05] MEDS: carvediloL 6.25 MG TABLET PO (09:47)
--- NOTE | 2022-02-05 10:53 | PM.PNCARD ---
Progress Note: A&P Assessment and Plan (1) Chest pain: Code(s): R07.9 - Chest pain, unspecified Status: Acute Assessment and Plan: ECG without ischemic changes. Troponins negative. No chest pain today. Probably GI in etiology not cardiac. EGD yesterday showed nonerosive GERD, hiatal hernia, and presence of Schatzki's ring (2) Epigastric pain: Code(s): R10.13 - Epigastric pain Status: Acute Assessment and Plan: As per GI (3) Ischemic cardiomyopathy: Code(s): I25.5 - Ischemic cardiomyopathy Status: Acute Assessment and Plan: Last TTE reviewed. Repeat TTE performed this morning, results pending Continue home doses of Aldactone, Entresto, Lasix, Coreg Patient is compensated on exam. (4) Coronary artery disease: Code(s): I25.10 - Atherosclerotic heart disease of [place] coronary artery without angina pectoris Status: Acute Assessment and Plan: S/p STEMI in 01/2021 as noted in HPI. Continue ASA, statin, Plavix. Plan Will await echo results but likely okay to discharge home today with cardiology follow up Subjective Date/time seen: 02/05/22 10:53 Cardiology follow up for chest pain Interval history: Feels better today, denies any chest pain. No complaints. Review of Systems Constitutional: Constitutional: Denies body ache(s), Denies chills and Denies night sweats Eyes: Eyes: Reports no additional eye complaints ENT: Denies dysphagia Cardiovascular: Cardiovascular: Denies no additional cardiovascular complaints, Denies leg edema, Denies lightheadedness, Denies palpitations, Denies dyspnea and Denies dyspnea on exertion Respiratory: Respiratory: Denies dyspnea and Denies dyspnea on exertion Gastrointestinal: Gastrointestinal: Reports abdominal pain, Denies dysphagia, Reports nausea and Reports vomiting Musculoskeletal: Musculoskeletal: Reports no additional musculoskeletal complaints Integumentary/Breasts: Skin/Breast: Reports system reviewed and no additional complaints, except as docu Neurologic: Reports system reviewed and no additional complaints, except as documented Psychiatric: Psychiatric: Reports no additional psychiatric complaints Endocrine: Endocrine: Denies palpitations Hematologic/Lymphatic: Hematologic/Lymphatic: Reports no additional hematologic/lymphatic complaints Exam Const: General: comfortable and no acute distress HENMT: Mouth: Yes moist mucous membranes Eyes: General: appearance normal, both eyes and all related structures Neck: Neck: supple and no JVD Resp: Effort & Inspection: normal respiratory effort Auscultation: clear to auscultation bilaterally Cardio: Rate: regular rate Rhythm: regular rhythm Heart sounds: no murmurs Skin: General skin exam: normal color Neuro: Speech: normal speech Extrem: General: no edema Psych: Mental Status: mental status grossly normal Objective Data Vital Signs Vital Signs: Vital Signs - 24 hr 02/04/22 12:00 02/04/22 11:29 02/04/22 12:00 Temperature 36.9 C Pulse Rate 72 104 H Respiratory Rate 16 Blood Pressure 129/82 Pulse Oximetry 98 Oxygen Delivery Room Air 02/04/22 14:27 02/04/22 16:08 02/04/22 16:18 Temperature 36.3 C L Pulse Rate 74 78 79 Respiratory Rate 18 20 26 H Blood Pressure 162/85 H 120/73 124/73 Pulse Oximetry 99 96 99 Oxygen Delivery Room Air Room Air Room Air 02/04/22 16:28 02/04/22 16:00 02/04/22 16:00 Temperature 36.2 C L Pulse Rate 77 70 Respiratory Rate 21 H 16 Blood Pressure 132/90 138/85 Pulse Oximetry 99 99 Oxygen Delivery Room Air Room Air 02/04/22 16:00 02/04/22 18:00 02/04/22 20:00 Temperature 36.6 C Pulse Rate 76 79 69 Respiratory Rate 18 Blood Pressure 131/73 Pulse Oximetry 98 Oxygen Delivery 02/04/22 20:00 02/04/22 20:51 02/04/22 20:00 Temperature Pulse Rate 69 67 92 Respiratory Rate 18 Blood Pressure Pulse Oximetry 98 Oxygen Delivery Room
--- NOTE | 2022-02-05 14:03 | WPDANESPN ---
Anes - Prog Note Post-Op Date/Time: 02/05/22 14:03 Vital Signs: Last Vital Signs Temp 36.4 C L 02/05/22 12:08 Pulse 77 02/05/22 12:08 Resp 14 02/05/22 12:08 BP 135/75 02/05/22 12:08 Pulse Ox 100 02/05/22 12:08 O2 Del Method Room Air 02/05/22 12:00 Pain Score (VAS): 0 I/O: Intake & Output 02/04/22 02/05/22 02/05/22 23:59 07:59 15:59 Intake Total 1010 400 480 Balance 1010 400 480 Laboratory Tests 02/05/22 04:45 02/05/22 04:45 02/05/22 02/05/22 04:45 04:45 WBC 8.9 RBC 5.01 Hgb 15.1 Hct 43.4 MCV 86.6 MCH 30.1 MCHC 34.8 RDW 13.2 Plt Count 281 MPV 8.5 Immature Gran % (Auto) 0.5 Neut % (Auto) 60.3 Lymph % (Auto) 29.4 Sumner % (Auto) 7.6 Eos % (Auto) 1.7 Baso % (Auto) 0.5 Lymph # (Auto) 2.61 [place]ner # (Auto) 0.7 H Eos # (Auto) 0.2 Baso # (Auto) 0.0 Abs Immat Gran (auto) 0.04 H Absolute Neuts (auto) 5.4 Absolute Nucleated RBC 0.0 Nucleated RBC % 0.0 Sodium 141 Potassium 3.3 L Chloride 102 Carbon Dioxide 27 Anion Gap 12 BUN 18 Creatinine 1.40 H Estim Creat Clear Calc 61 Estimated GFR 54 L Glucose 102 Calcium 8.6 Magnesium 2.2 Total Bilirubin 0.8 AST 25 ALT 28 Alkaline Phosphatase 68 Total Protein 7.0 Albumin 4.0 Patient Feedback: Patient satisfied with anesthetic care.
--- NOTE | 2022-02-05 15:16 | PM.DS ---
DS: Admitting Diagnosis Discharge Date 02/05/2022 Admitting Diagnosis chest pain DS: Discharge Diagnosis Discharge Diagnosis (1) Chest pain: Code(s): R07.9 - Chest pain, unspecified Status: Acute (2) Epigastric pain: Code(s): R10.13 - Epigastric pain Status: Acute (3) Hypokalemia: Code(s): E87.6 - Hypokalemia Status: Acute (4) Coronary artery disease: Code(s): I25.10 - Atherosclerotic heart disease of [place] coronary artery without angina pectoris Status: Acute (5) Ischemic cardiomyopathy: Code(s): I25.5 - Ischemic cardiomyopathy Status: Acute (6) Suspected sleep apnea: Code(s): R29.818 - Other symptoms and signs involving the nervous system Status: Acute (7) Enlarged prostate: Code(s): N40.0 - Benign prostatic hyperplasia without lower urinary tract symptoms Status: Acute DS: Summary Hospital Course Hospital Course: # chest pain/abdominal pain: EKG with out ischemic changes. trop negative. symptoms were food related and hence GI related symptom suggestive. GI consulted. status post EGD on 02/04/2022 which showed nonerosive reflux disease In distal esophagus, moderate Scatzki's ring at GE junction and hiatal hernia. CT abdomen with findings of esophagitis. on ppi bid.lipase normal. tropin x 3 negative. symptoms resolved with supportive treatment and initiation of PPI. She he will continue Protonix 40 mg daily at discharge. # CAD with STEMI in jan 2021 s/p stent 0ct 2020. on aspirin, plavix. statin. bb. # cardiomyopathy: clinically compensated. used to have low EF 25-30% but reports it has improved to 36% . no life vest since then. repeat echo With ejection fraction 30-35%. 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 # HTN # HLP # positive apena link: davis josue PCP for follow up # prostatomegaly : fu with PCP as op basis. # DVT proph: SCDs Time Spent with Patient Time attestation: Total time spent providing and/or coordinating discharge services: 40 minutes Exam Narrative: General: Well-developed male sitting up in bed no distress. HEENT: PERRL, EOMI. Sclera anicteric. Oral mucosa moist. Oropharynx clear. Neck: Supple. Respiratory: Lungs are clear to auscultation bilaterally. Cardiovascular: Regular rate and rhythm with S1-S2. Gastrointestinal: Abdomen is soft And nondistended with positive bowel sounds. Scars from prior hernia surgery noted. He is midly tender to palpation epigastric region. No guarding or rebound tenderness. Skin: Warm and dry. Multiple tattoos. Extremities: No cyanosis, clubbing, or edema. Radial and pedal pulses intact. Neurological: Alert. Cranial nerves 2-12 are grossly intact. No gross focal deficits to casual conversation. Psychiatric: Pleasant and cooperative with normal mood and affect. Judgment and insight intact. DS: Data Data Completed and Pending Completed studies during hospitalization: Exam Type: ? ? CA echo doppler color flow Study Info Indications ? ? I25.5 - Ischemic cardiomyopathy ? ? R07.9 - Chest pain,? unspecified Complete two-dimensional, color flow and Doppler transthoracic echocardiogram is performed. Account #: ? ? [id number] Summary ? 1. Complete two-dimensional, color flow and Doppler transthoracic echocardiogram is performed. ? 2. Left ventricular chamber dimension is moderately enlarged. ? 3. Left ventricular systolic function is moderately reduced, estimated at 30-35%. ? 4. There is moderately increased left ventricular wall thickness. ? 5. The left ventricular diastolic function is grade I diastolic dysfunction. ? 6. Left atrial chamber dimension is mildly enlarged. ? 7. Right atrial chamber dimension is mildly enlarged. ? 8. There is mild mitral valve regurgitation. Left Ventricle ? Left ventricular chamber dimension is moderately enl
== END 2022-02-05 16:22 | disposition home or self-care (01) ==
LOC: ANHED 12:52 → ANHIMU 13:32
PROVIDERS: Internal Medicine Gastroenterology; Admitting Provider Internal Medicine; Emergency Provider Emergency Medicine; PCP Internal Medicine; Visit Provider Internal Medicine
PROC: 0DJ08ZZ Inspection of Upper Intestinal Tract, Via Natural or Artificial Opening Endoscopic (ICD-10-PCS; CPT 43235; principal; 2022-02-04 16:45)
DX: K21.9 Gastro-esophageal reflux disease without esophagitis (principal); K22.2 Esophageal obstruction; K44.9 Diaphragmatic hernia without obstruction or gangrene; R93.3 Abnormal findings on diagnostic imaging of other parts of digestive tract; I11.0 Hypertensive heart disease with heart failure; I50.9 Heart failure, unspecified; R06.09 Other forms of dyspnea; F10.90 Alcohol use, unspecified, uncomplicated; I25.10 Atherosclerotic heart disease of native coronary artery without angina pectoris; E87.6 Hypokalemia; Z95.5 Presence of coronary angioplasty implant and graft; R29.818 Other symptoms and signs involving the nervous system; N40.0 Benign prostatic hyperplasia without lower urinary tract symptoms; I25.5 Ischemic cardiomyopathy; I44.0 Atrioventricular block, first degree; I25.2 Old myocardial infarction; E11.9 Type 2 diabetes mellitus without complications; E78.5 Hyperlipidemia, unspecified; R94.31 Abnormal electrocardiogram [ECG] [EKG]; Z82.3 Family history of stroke; Z83.3 Family history of diabetes mellitus; Z84.89 Family history of other specified conditions; F17.220 Nicotine dependence, chewing tobacco, uncomplicated; F14.11 Cocaine abuse, in remission; Z79.82 Long term (current) use of aspirin; Z79.02 Long term (current) use of antithrombotics/antiplatelets; Z79.899 Other long term (current) drug therapy
CPT/HCPCS: 43239; 36415; 71046; 74177; 80048; 80053; 83690; 83735; 84484; 85025; 85610; 85730; 87081; 88305; 93005; 93306; 96374; 96376; 99285; A9270; C9113; G0378; J2704; J7120; Q9967

== ENCOUNTER 2022-05-17 09:22 | Outpatient (CLI) | payer BC, SELFPAY ==
--- NOTE | ~2022-05-17 | XR_ITS ---
EXAMINATION: XR knee RT 3V DATE: 05/17/2022 09:53 INDICATION: Medial right knee pain TECHNIQUE: Anteroposterior, sunrise and crosstable lateral views of the right knee were obtained COMPARISON: None. FINDINGS: Right knee alignment is normal. No fracture. No joint effusion/layering lipohemarthrosis. Soft tissu es are unremarkable. IMPRESSION: 1. Negative right knee radiographs. Reviewed, dictated and finalized at location A. 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
[2022-05-17 09:45] LABS: Basophils Absolute Auto 0.05 K/mm3 (0.00-0.10); Basophils Percent Auto 0.7 % (0.0-1.0); Eosinophils Absolute Auto 0.17 K/mm3 (0.02-0.50); Eosinophils Percent Auto 2.3 % (1.0-6.0); Hematocrit 42.6 % (40.0-54.0); Hemoglobin 15.3 g/dL (14.0-18.0); Immature Granulocyte Absolute 0.03 K/mm3 (0.00-0.00); Immature Granulocyte Percent A 0.4 % (0.0-0.0); Lymphocytes Absolute Auto 2.11 K/mm3 (1.10-4.50); Lymphocytes Percent Auto 28.6 % (18.0-42.0); Mean Corpuscular HGB Conc 35.9 g/dL (32.0-36.0); Mean Corpuscular Hemoglobin 30.1 pg (27.0-31.0); Mean Corpuscular Volume 83.9 fL (78.0-102.0); Mean Platelet Volume 8.4 fl (8.7-11.0); Monocytes Absolute Auto 0.56 K/mm3 (0.10-0.90); Monocytes Percent Auto 7.6 % (2.0-11.0); Neutrophils Absolute Auto 4.5 K/mm3 (1.7-7.2); Neutrophils Percent Auto 60.4 % (50.0-70.0); Platelet Count Result 363 K/mm3 (150-420); Red Blood Count 5.08 M/mm3 (4.70-6.10); Red Cell Distribution Width 12.6 % (11.6-14.4); White Blood Count 7.4 K/mm3 (4.8-10.8)
[2022-05-17 09:46] LABS: Add Urine Microscopic? NO; Appearance Urine Clear (Clear); Bilirubin Urine Negative (Negative); Blood Urine Negative (Negative); Color Urine Yellow (Yellow); Glucose Urine UA Negative (Negative); Ketones Urine Negative (Negative); Leukocyte Esterase Ur Negative (Negative); Nitrate Urine Negative (Negative); Protein Urine Negative (Negative); Specific Grav Ur >= 1.030 (1.010-1.020); Urobilinogen Urine 0.2 mg/dL (0.2-1.0); pH Urine 5.5 (5.0-8.0)
[2022-05-17 10:31] LABS: Alanine Aminotransferase 44 U/L (16-63); Albumin Level 3.9 g/dL (3.4-5.0); Alkaline Phosphatase 82 U/L (46-116); Anion Gap 8 mmol/L (8-16); Aspartate Amino Transferase 34 U/L (15-37); Bilirubin,Total 0.5 mg/dL (0.00-1.00); Blood Urea Nitrogen 11 mg/dL (7-18); Calcium 8.7 mg/dL (8.5-10.1); Carbon Dioxide 27 mmol/L (21-32); Chloride 107 mmol/L (98-108); Estimated Glomerular Filt Rate > 60; Free T3 2.49 pg/mL (2.18-3.98); Free T4 Free Thyroxine 0.97 ng/dL (0.76-1.46); Glucose 99 mg/dL (70-99); Osmolality Calculated 293 mOsm/kg (285-295); Potassium 3.7 mmol/L (3.5-5.1); Prostate Specific Antigen 0.7 ng/mL (< OR = 4.0); Sodium 142 mmol/L (136-145); Thyroid Stimulating Hormone 1.38 uIU/mL (0.36-3.74)
[2022-05-17 10:40] LABS: CRP < 0.5 mg/dL (0.0-0.9)
[2022-05-22 19:04] LABS: Hepatitis A Antibody IgM Nonreactive; Hepatitis B Core Antibody Nonreactive (Nonreactive); Hepatitis B Surface Antigen Nonreactive (Nonreactive); Hepatitis C Signal to Cutoff 0.01 ratio (<1.00); Hepatitis C Virus Antibody Nonreactive (Nonreactive)
== END 2022-05-17 09:23 | disposition home or self-care (01) ==
LOC: CHSLAB 09:24
PROVIDERS: PCP Internal Medicine; Visit Provider Internal Medicine
DX: R53.83 Other fatigue (principal); N40.0 Benign prostatic hyperplasia without lower urinary tract symptoms; M25.561 Pain in right knee
CPT/HCPCS: 36415; 73562; 80053; 80074; 81003; 84153; 84439; 84443; 84481; 85025; 86140

== ENCOUNTER 2022-08-10 21:44 | Emergency (ER) | payer BC, SELFPAY ==
--- NOTE | ~2022-08-10 | XR_ITS ---
EXAMINATION: XR chest 1V portable DATE: 08/10/2022 22:19 INDICATION: Chest pain. Hypertension. TECHNIQUE: frontal view of the chest was obtained. COMPARISON: Chest radiograph dated 02/03/2022 FINDINGS: Chronic elevation the right hemidiaphragm. No focal airspace opacities, pulmonary edema, pleural effu yuni or pneumothorax. Mild cardiomegaly. Visualized bones and soft tissues are unremarkable. IMPRESSION: 1. Mild cardiomegaly. 2. Chronic mild elevation the right hemidiaphragm. Reviewed, dictated and finalized at location A.
--- NOTE | 2022-08-10 21:59 | ECG_ITS ---
Measurements Intervals [place] Rate: 78 P: 0 MD: 205 QRS: -53 QRSD: 150 T: 60 QT: 436 QTc: 497 Interpretive Statements SINUS RHYTHM BORDERLINE AV CONDUCTION DELAY RIGHT BUNDLE BRANCH BLOCK LEFT ANTERIOR FASCICULAR BLOCK ABNORMAL ECG COMPARED TO ECG 02/03/2022 10:31:25 NO SIGNIFICANT CHANGES Electronically Signed On 08-12-2022 6:50:08 CDT by Camden Doyle D.O.
--- NOTE | 2022-08-10 22:01 | ED.GENADULT ---
HPI - General Adult General Chief complaint: Unspecified Stated complaint: High Blood Pressure History of Present Illness HPI narrative: 47yo man h/o CAD, stents, followed by cardiology at [facility], presents with concern for chest pain, onset 45 minutes prior to arrival, with nausea and sweatiness and increase in his blood pressure. Denies alcohol or illicits. Did take energy pills earlier today though. Related Data Home Medications Medication Instructions Recorded Confirmed fluoxetine 40 mg capsule 20 mg PO DAILY 01/19/21 08/10/22 atorvastatin 40 mg tablet 80 mg PO DAILY 02/03/22 08/10/22 sacubitril 24 mg-valsartan 26 mg 1 tablet PO BID 02/03/22 08/10/22 tablet (Entresto) Allergies Allergy/AdvReac Type Severity Reaction Status Date / Time No Known Allergies Allergy Verified 08/10/22 22:46 Review of Systems Review of Systems: All systems reviewed & are unremarkable except as noted in HPI and below Constitutional: Constitutional: Denies chills and Denies fever(s) ENT: Denies dizziness Cardiovascular: Cardiovascular: Denies chest pain Respiratory: Respiratory: Denies chest congestion and Denies dyspnea Gastrointestinal: Gastrointestinal: Reports nausea and Denies vomiting PMF Past Medical History Medical History Coronary artery disease Hypertension Ischemic cardiomyopathy ST elevation (STEMI) myocardial infarction (01/2021) Substance abuse Tobacco abuse Surgical History Surgical History History of hernia repair History of right knee surgery Family History Family History Mother Thyroid disease TIA (transient ischemic attack) Father Diabetes mellitus Cancer Other Family history of premature coronary heart disease Social History Social History Social History: Surrogate medical decision maker: Ashanti Roberts, spouse. Code status: Full code. Tobacco type: smokeless tobacco Smokeless tobacco user: chewing tobacco Alcohol intake: never Drinks per week: 1 Alcohol use details: Social alcohol use in moderation. Substance use: former Substance use type: crack/cocaine Lack of Transportation: No Lack of Food: Never True Current Housing: I Have Housing Concerned About Future Housing: No Difficulty Paying Gas/Electric Bills: No Difficulty Paying for Meds: No Currently Unemployed: YES Education: High School Diploma/GED Difficulty w/ Childcare or Family Care: No Living arrangements: with family Spiritual care concerns: No Exam Const: General: healthy appearing and alert Nutritional Appearance: well nourished Orientation/consciousness: patient oriented x3 Eyes: Conjunctivae: conjunctivae normal Neck: Other: supple Chest: Chest palpation & inspection: normal inspection of the chest Resp: Effort & Inspection: normal respiratory effort and not labored Cardio: Rate: tachycardic Rhythm: regular rhythm GI: Inspection: non-distended GI Palp: No Soft to palpation and No Tenderness to palpation present (GI) Skin: General skin exam: normal color, no jaundice and no pallor Neuro: General: patient oriented x3 and moves all extremities Gait exam (Neuro): Normal gait present Extrem: General: no pedal edema Course Vital Signs Vital signs: Vital Signs Pulse Rate 78 08/10/22 22:33 Respiratory Rate 21 H 08/10/22 22:33 Blood Pressure 161/104 H 08/10/22 22:33 Pulse Oximetry 94 08/10/22 22:33 Pulse Rate 74 08/10/22 23:01 Respiratory Rate 17 08/10/22 23:01 Blood Pressure 149/108 H 08/10/22 23:01 Pulse Oximetry 96 08/10/22 23:01 Medical Decision Making MDM Narrative Medical decision making narrative: acute chest pain DDx coronary syndrome, pleurisy, indigestion, gastroesophag
[2022-08-10] MEDS: ASPIRIN 81 MG CHEWABLE TABLET 324 MG PO (22:29)
[2022-08-10] MEDS: MORPHINE SULFATE (*CRX) 2 MG/ML INJ IV PUSH (22:29)
[2022-08-10 22:33] VITALS: BP 161/104; PULSE 78; RESP 21; O2SAT 94
[2022-08-10 22:54] LABS: Basophils Absolute Auto 0.06 K/mm3 (0.00-0.10); Basophils Percent Auto 0.7 % (0.0-1.0); Eosinophils Absolute Auto 0.37 K/mm3 (0.02-0.50); Eosinophils Percent Auto 4.4 % (1.0-6.0); Hematocrit 43.9 % (40.0-54.0); Hemoglobin 15.4 g/dL (14.0-18.0); Immature Granulocyte Absolute 0.04 K/mm3 (0.00-0.00); Immature Granulocyte Percent A 0.5 % (0.0-0.0); Lymphocytes Absolute Auto 2.66 K/mm3 (1.10-4.50); Lymphocytes Percent Auto 31.7 % (18.0-42.0); Mean Corpuscular HGB Conc 35.1 g/dL (32.0-36.0); Mean Corpuscular Hemoglobin 29.8 pg (27.0-31.0); Mean Corpuscular Volume 84.9 fL (78.0-102.0); Mean Platelet Volume 8.6 fl (8.7-11.0); Monocytes Absolute Auto 0.51 K/mm3 (0.10-0.90); Monocytes Percent Auto 6.1 % (2.0-11.0); Neutrophils Absolute Auto 4.8 K/mm3 (1.7-7.2); Neutrophils Percent Auto 56.6 % (50.0-70.0); Platelet Count Result 370 K/mm3 (150-420); Red Blood Count 5.17 M/mm3 (4.70-6.10); Red Cell Distribution Width 12.1 % (11.6-14.4); White Blood Count 8.4 K/mm3 (4.8-10.8)
[2022-08-10 23:01] VITALS: BP 149/108; PULSE 74; RESP 17; O2SAT 96
[2022-08-10 23:03] LABS: Prothrombin Time 10.8 Seconds (9.50-12.10)
[2022-08-10 23:12] LABS: Alanine Aminotransferase 15 U/L (16-63); Albumin Level 3.8 g/dL (3.4-5.0); Alkaline Phosphatase 88 U/L (46-116); Anion Gap 10 mmol/L (8-16); Aspartate Amino Transferase 19 U/L (15-37); Bilirubin,Total 0.6 mg/dL (0.00-1.00); Blood Urea Nitrogen 13 mg/dL (7-18); Calcium 9.3 mg/dL (8.5-10.1); Carbon Dioxide 28 mmol/L (21-32); Chloride 105 mmol/L (98-108); Estimated Glomerular Filt Rate 58; Glucose 145 mg/dL (70-99); Lipase 33 U/L (16-77); Osmolality Calculated 299 mOsm/kg (285-295); Potassium 3.6 mmol/L (3.5-5.1); Sodium 143 mmol/L (136-145); Total Protein 7.9 g/dL (6.4-8.2); Troponin I 14.3 ng/L (0.00-60.4)
[2022-08-10 23:20] LABS: Ethanol < 3 mg/dL (0-6)
[2022-08-11 00:37] LABS: Troponin I 17.1 ng/L (0.00-60.4)
[2022-08-11] MEDS: SODIUM CHLORIDE 0.9% IV 1,000 ML 999 ML IV CONT (00:49)
[2022-08-11 01:32] VITALS: BP 157/99; PULSE 73; RESP 18; O2SAT 97
== END 2022-08-11 01:41 | disposition home or self-care (01) ==
PROVIDERS: Emergency Provider Emergency Medicine; PCP Internal Medicine
DX: R07.9 Chest pain, unspecified (principal); I25.10 Atherosclerotic heart disease of native coronary artery without angina pectoris; I10 Essential (primary) hypertension; I25.2 Old myocardial infarction; F17.220 Nicotine dependence, chewing tobacco, uncomplicated; Z79.899 Other long term (current) drug therapy
CPT/HCPCS: 36415; 71045; 80053; 80307; 83690; 83735; 84484; 85025; 85610; 93005; 96361; 96374; 99284; A9270; J2270; J7030

== ENCOUNTER 2022-09-23 10:08 | Outpatient (RCR) | payer BC, SELFPAY ==
--- NOTE | 2022-09-23 10:45 | OPREHPOC ---
Outpatient Therapy Plan of Care This is a Multidisciplinary Plan of Care that may contain components documented by all disciplines (PT, OT, and ST.) PT Problem 1 PT Problem #1 Knowledge Deficit PT Goal 1 Goal Patient to demonstrate independence with HEP Target Visit 12 PT Problem 2 PT Problem #2 Pain PT Goal 1 Goal Patient to demonstrate highest pain at 2/10 with house hold tasks Target Visit 12 PT Problem 3 PT Problem #3 Impaired Range of Motion PT Goal 1 Goal Patient to demonstrate 0-120 degrees of active R knee ROM to return to stair navigation at [facility]. Target Visit 12 PT Problem 4 PT Problem #4 Edema PT Goal 1 Goal Patient to demonstrate circumference of R knee to 40 cm Target Visit 12 PT Problem 5 PT Problem #5 Impaired Strength PT Goal 1 Goal Patient to demonstrate 5/5 strength of R LE in order to return to squatting for household tasks at OF Target Visit 12
--- NOTE | 2022-09-23 10:45 | PTOPEVAL1 ---
Assessment and note entered by Naheed Martin DPT Evaluation Information Assessment Status Evaluation Diagnosis R knee pain Onset 09/04/22 Subjective Information Patient reports R knee arthroscopic suregery on following long history of R knee pain. He reports since surgery he has had to have fluid drained off the knee 2x. He reports difficulty with walking, stairs and squatting. 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 He reports RTMD next week. Reported Pain Level Pain Score 3: Self Report Assessment PT Clinical Summary Patient is a 47 year old male who presents to PT with R knee pain s/p R knee arthroscopic procedure . He demonstrates decreased R knee ROM, decreased R knee strength and impaired gait mechanics limiting his ability to walk prolonged periods, squat for house hold tasks and navigate stairs. He would benefit from skilled PT to address impairements and return to PLOF. Plan of Care Interventions Electrical Stimulation,Gait Training,Hot Pack/Cold Pack,Manual Therapy,Neuro Re-education,Patient/ Caregiver Educati,Therapeutic Activities, Therapeutic Exercise PT Services Indicated Yes Treatment Frequency and 2x weekly for 12 visits Duration These treatments will address the objective and functional deficits as defined above. The patient will be advanced safely and appropriately in order for the patient to progress towards his/her prior level of function. Additional exercises will be introduced and as well as a comprehensive home exercise program upon discharge, if needed, ?to ensure carryover of functional gains achieved in the clinic. This treatment plan has been reviewed and agreement upon by the patient.
--- NOTE | 2022-10-03 16:21 | OPREHPOC ---
Outpatient Therapy Plan of Care This is a Multidisciplinary Plan of Care that may contain components documented by all disciplines (PT, OT, and ST.) PT Problem 1 PT Problem #1 Knowledge Deficit PT Goal 1 Goal Patient to demonstrate independence with HEP Target Visit 12 PT Problem 2 PT Problem #2 Pain PT Goal 1 Goal Patient to demonstrate highest pain at 2/10 with house hold tasks Target Visit 12 PT Problem 3 PT Problem #3 Impaired Range of Motion PT Goal 1 Goal Patient to demonstrate 0-120 degrees of active R knee ROM to return to stair navigation at [facility]. Target Visit 12 PT Problem 4 PT Problem #4 Edema PT Goal 1 Goal Patient to demonstrate circumference of R knee to 40 cm Target Visit 12 PT Problem 5 PT Problem #5 Impaired Strength PT Goal 1 Goal Patient to demonstrate 5/5 strength of R LE in order to return to squatting for household tasks at [facility] Target Visit 12
--- NOTE | 2022-10-03 16:22 | PTOPEVAL1 ---
Assessment and note entered by Naheed Martin DPT Evaluation Information Assessment Status Evaluation Diagnosis R knee pain Onset 09/04/22 Subjective Information Patient reports R knee arthroscopic suregery on following long history of R knee pain. He reports since surgery he has had to have fluid drained off the knee 2x. He reports difficulty with walking, stairs and squatting. 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 He reports RTMD next week. Assessment PT Clinical Summary Patient is a 47 year old male who presents to PT with R knee pain s/p R knee arthroscopic procedure . He demonstrates decreased R knee ROM, decreased R knee strength and impaired gait mechanics limiting his ability to walk prolonged periods, squat for house hold tasks and navigate stairs. He would benefit from skilled PT to address impairements and return to PLOF. Plan of Care Interventions Electrical Stimulation,Gait Training,Hot Pack/Cold Pack,Manual Therapy,Neuro Re-education,Patient/ Caregiver Educati,Therapeutic Activities, Therapeutic Exercise PT Services Indicated Yes Treatment Frequency and 2x weekly for 12 visits Duration These treatments will address the objective and functional deficits as defined above. The patient will be advanced safely and appropriately in order for the patient to progress towards his/her prior level of function. Additional exercises will be introduced and as well as a comprehensive home exercise program upon discharge, if needed, ?to ensure carryover of functional gains achieved in the clinic. This treatment plan has been reviewed and agreement upon by the patient.
== END 2022-09-26 20:00 | disposition home or self-care (01) ==
LOC: CHSPT 10:08
PROVIDERS: PCP Internal Medicine; Visit Provider Orthopaedic Surgery
DX: Z48.89 Encounter for other specified surgical aftercare (principal)
CPT/HCPCS: 97016; 97110; 97161

== ENCOUNTER 2023-02-19 09:13 | Emergency (ER) | payer BC, SELFPAY ==
--- NOTE | ~2023-02-19 | XR_ITS ---
EXAMINATION: XR chest 2V DATE: 02/19/2023 10:07 INDICATION: Chest pain TECHNIQUE: PA and lateral views of the chest are obtained. COMPARISON: 08/10/2022 FINDINGS: The lungs are free of acute opacities. No pleural effusion or pneumothorax. Cardiomegaly is noted. There is chronic mild elevation of the right hemidiaphragm. There is mild thoracic spondylosi s. IMPRESSION: 1. No acute cardiopulmonary abnormality. Reviewed, dictated and finalized at location B. RESOLUTION SPECIALIST
--- NOTE | 2023-02-19 09:16 | ECG_ITS ---
Measurements Intervals [place] Rate: 81 P: -1 MN: 189 QRS: -52 QRSD: 146 T: 88 QT: 407 QTc: 473 Interpretive Statements SINUS RHYTHM VENTRICULAR PREMATURE COMPLEXES INTRAVENTRICULAR CONDUCTION DELAY LEFT ANTERIOR FASCICULAR BLOCK LEFT VENTRICULAR HYPERTROPHY WITH ST-T CHANGE ABNORMAL ECG COMPARED TO ECG 08/10/2022 22:14:54 NO SIGNIFICANT CHANGES Electronically Signed On 02-19-2023 9:29:38 SHIRT SORTER by Camden Doyle D.O.
[2023-02-19 09:21] VITALS: BP 151/123; PULSE 82; RESP 17; O2SAT 99
[2023-02-19 09:28] VITALS: BP 151/123; PULSE 81; RESP 21; O2SAT 97
[2023-02-19 09:44] LABS: Basophils Absolute Auto 0.1 K/mm3 (0.0-0.1); Basophils Percent Auto 0.7 % (0.2-1.2); Eosinophils Absolute Auto 0.1 K/mm3 (0-0.3); Eosinophils Percent Auto 1.3 % (0-4.4); Hematocrit 43.3 % (42.0-52.0); Hemoglobin 15.1 g/dL (14.0-18.0); Immature Granulocyte Absolute 0.08 K/mm3 (0.00-0.031); Immature Granulocyte Percent A 0.8 % (0-0.5); Lymphocytes Absolute Auto 2.23 K/mm3 (0.9-3.2); Lymphocytes Percent Auto 23.1 % (18.3-44.2); Mean Corpuscular HGB Conc 34.9 g/dl (32-36); Mean Corpuscular Hemoglobin 29.2 pg (26-34); Mean Corpuscular Volume 83.6 fl (80-100); Mean Platelet Volume 8.7 fl (7.4-10.4); Monocytes Absolute Auto 0.8 K/mm3 (0.1-0.6); Monocytes Percent Auto 8.1 % (2.6-8.5); Neutrophils Absolute Auto 6.4 K/mm3 (1.3-6.7); Platelet Count Result 326 k/mm3 (150-375); Red Blood Count 5.18 M/mm3 (4.6-6.20); Red Cell Distribution Width 12.9 % (11.5-14.5); White Blood Count 9.7 K/mm3 (4.5-10.0)
[2023-02-19 09:47] VITALS: BP 144/104; PULSE 86; RESP 19; O2SAT 99
[2023-02-19] MEDS: ASPIRIN 81 MG CHEWABLE TABLET 324 MG PO (09:55)
[2023-02-19 10:01] VITALS: BP 147/125; PULSE 82; RESP 14; O2SAT 97
[2023-02-19 10:03] LABS: INR 0.9; Partial Thromboplastin Time 26.7 SECONDS (22.3-36.8); Prothrombin Time 12.4 Seconds (11.1-14.7)
[2023-02-19] MEDS: KETOROLAC 30 MG/ML VIAL (*BKC) IV PUSH (10:42)
[2023-02-19 10:52] LABS: Alanine Aminotransferase 34 U/L (6-50); Albumin Level 4.3 g/dL (3.5-5.1); Alkaline Phosphatase 74 U/L (38-126); Anion Gap 7 mmol/L (8-16); Aspartate Amino Transferase 26 U/L (17-59); Bilirubin,Total 0.6 mg/dL (0.2-1.3); Blood Urea Nitrogen 15 mg/dL (9-20); Calcium 8.8 mg/dL (8.4-10.2); Carbon Dioxide 26 mmol/L (22-30); Chloride 105 mmol/L (98-107); Estimated CRCL calculation 107 ml/min; Estimated Glomerular Filt Rate > 60; Glucose 106 mg/dL (65-110); Lipase 115 U/L (23-300); Potassium 3.5 mmol/L (3.4-5.0); Sodium 138 mmol/L (137-145)
[2023-02-19 11:01] LABS: Troponin I 0.024 ng/mL (0.000-0.034)
--- NOTE | 2023-02-19 12:15 | ED.CHESTPAIN ---
HPI - Chest Pain General Chief Complaint: Chest Pain Stated Complaint: symptoms of a heart attack again Time Seen by Provider: 02/19/23 09:39 History of Present Illness HPI narrative: Patient is a 48-year-old male who presents ER with pain to his left posterior shoulder. Medial to the scapula. No known injury. Worse with physical movements. He is also been having runny nose with sore throat cough. Cough has been ongoing for 5 days and pain has been ongoing for 3 days. No chest pain or exertional chest discomfort but when he had his heart attack he had shoulder pain which increases his concern. No alleviating factors. Related Data Home Medications Medication Instructions Recorded Confirmed atorvastatin 40 mg tablet 80 mg PO DAILY 02/03/22 08/10/22 sacubitril 24 mg-valsartan 26 mg 1 tablet PO DAILY 02/03/22 08/10/22 tablet (Entresto) fluoxetine 20 mg capsule 20 mg PO DAILY 02/19/23 Allergies Allergy/AdvReac Type Severity Reaction Status Date / Time No Known Allergies Allergy Verified 02/19/23 09:31 Review of Systems Review of Systems: All systems reviewed & are unremarkable except as noted in HPI and below Constitutional: Constitutional: Denies chills, Denies fatigue and Denies fever(s) ENT: Reports nasal congestion and Denies sore throat Cardiovascular: Cardiovascular: Denies chest pain, Denies rapid heart rate and Denies radiating jaw, neck or arm pain Respiratory: Respiratory: Reports cough, Denies dyspnea and Denies wheezing Gastrointestinal: Gastrointestinal: Denies abdominal pain, Denies nausea and Denies vomiting [facility] Past Medical History Medical History Coronary artery disease Hypertension Ischemic cardiomyopathy ST elevation (STEMI) myocardial infarction (01/2021) Substance abuse Tobacco abuse Surgical History Surgical History History of hernia repair History of right knee surgery Family History Family History Mother Thyroid disease TIA (transient ischemic attack) Father Diabetes mellitus Cancer Other Family history of premature coronary heart disease Social History Social History Social History: Surrogate medical decision maker: Ashanti Roberts, spouse. Code status: Full code. Tobacco type: smokeless tobacco Smokeless tobacco user: chewing tobacco Alcohol intake: never Drinks per week: 1 Alcohol use details: Social alcohol use in moderation. Substance use: former Substance use type: crack/cocaine Lack of Transportation: No Lack of Food: Never True Current Housing: I Have Housing Concerned About Future Housing: No Difficulty Paying Gas/Electric Bills: No Difficulty Paying for Meds: No Currently Unemployed: YES Education: High School Diploma/GED Difficulty w/ Childcare or Family Care: No Living arrangements: with family Spiritual care concerns: No Exam Narrative: GENERAL: Well-appearing, well-nourished, and in no acute distress. HEAD: Normocephalic, atraumatic. ENT: Mucous membranes moist. NECK: Supple. CHEST: Clear to auscultation. No respiratory distress. HEART: Regular rate and rhythm. Normal peripheral pulses. A back: No reproducible midline tenderness to T/L-spine. There is left paraspinal muscular tenderness medial to the scapula. EXTREMITIES: Normal range of motion. No edema. SKIN: Warm, dry, no rash. NEURO: Alert and oriented x3. PSYCH: Normal mood and affect. Course Course Emergency Course: Symptoms consistent with musculoskeletal pain. Troponin negative x2. Patient given reassurance. Discharge home. Vital Signs Vital signs: Vital Signs Pulse Rate 82 02/19/23 09:21 Respiratory Rate 17 02/19/23 09:21 Blood Pressure 151/123 H 02/19/23 09:21 Pulse Oximetry 99 02/19/23 09:21
[2023-02-19 12:32] LABS: Troponin I 0.025 ng/mL (0.000-0.034)
[2023-02-19 12:54] VITALS: BP 140/85; PULSE 79; RESP 16; O2SAT 99
== END 2023-02-19 12:59 | disposition home or self-care (01) ==
PROVIDERS: Emergency Provider Emergency Medicine; PCP Internal Medicine
DX: M25.512 Pain in left shoulder (principal); I25.10 Atherosclerotic heart disease of native coronary artery without angina pectoris; I10 Essential (primary) hypertension; I25.5 Ischemic cardiomyopathy; I25.2 Old myocardial infarction; F17.220 Nicotine dependence, chewing tobacco, uncomplicated; I49.3 Ventricular premature depolarization; I44.4 Left anterior fascicular block; I45.9 Conduction disorder, unspecified
CPT/HCPCS: 36415; 71046; 80053; 83690; 84484; 85025; 85610; 85730; 93005; 96374; 99284; A9270; J1885

== ENCOUNTER 2023-04-22 09:43 | Outpatient (CLI) | payer SELFPAY ==
--- NOTE | ~2023-04-22 | XR_ITS ---
Left wrist Technique: PA, oblique, lateral, and ulnar deviation views were obtained. Clinical History: Pain Findings: No acute fracture or dislocation is seen. Osseous alignment is anatomic. Joint spaces are p reserved. Soft tissues are unremarkable. Impression: Unremarkable left wrist radiographs. Reviewed, dictated and finalized at location . HAULER HELPER Impression: Unremarkable left wrist radiographs.
--- NOTE | ~2023-04-22 | XR_ITS ---
Right Hand Technique: PA, oblique, and lateral views were obtained. Clinical History: Pain Findings: No acute fracture or dislocation is seen. Osseous alignment is anatomic. Joint spaces are p reserved. Soft tissues are unremarkable. Impression: Unremarkable right hand. Reviewed, dictated and finalized at location M. K ARCHER Impression: Unremarkable right hand.
--- NOTE | ~2023-04-22 | XR_ITS ---
Left Hand Technique: PA, oblique, and lateral views were obtained. Clinical History: Pain Findings: No acute fracture or dislocation is seen. Osseous alignment is anatomic. Joint spaces are p reserved. Soft tissues are unremarkable. Impression: No acute abnormality. Possible old, healed fracture deformity of the distal fifth metacarpal neck. Reviewed, dictated and finalized at [facility]. LD CLEANER Impression: No acute abnormality. Possible old, healed fracture deformity of the distal fif th metacarpal neck.
== END 2023-04-22 09:44 | disposition home or self-care (01) ==
PROVIDERS: PCP Internal Medicine; Visit Provider Internal Medicine
DX: M79.642 Pain in left hand (principal); M79.641 Pain in right hand
CPT/HCPCS: 73110; 73120

== ENCOUNTER 2024-07-30 17:14 | Emergency (ER) | payer OTHER, MEDICAID, SELFPAY ==
--- OUTSIDE RECORDS SUMMARY | 2024-07-30 17:18 | XMS_ITS | Clinical Summary ---
Author Organization [facility] Address [address] [place] [address] Care Team Providers Care Corporate Recycling Manager Name Role Phone Dave Jorgensen MD Primary Care Provider [phone] Iraida Gray MD Unavailable [phone] Allergies No known active allergies Medications aspirin 81 mg enteric coated tablet Take 1 tablet (81 mg total) by mouth every morning 30 tablet 4 Active atorvastatin (LIPITOR) 80 mg tablet Take 1 tablet (80 mg total) by mouth nightly 30 tablet 4 Active FLUoxetine (PROzac) 20 mg capsule Take 1 capsule (20 mg total) by mouth every morning 30 capsule 4 Active furosemide (LASIX) 40 mg tablet Take 1.5 tablets (60 mg total) by mouth daily 30 tablet 5 Active carvediloL (COREG) 12.5 mg tablet Take 1 tablet (12.5 mg total) by mouth 2 (two) times a day with meals 60 tablet 11 5 07/20/19 26 Active sacubitriL-valsart an (ENTRESTO) 49-51 mg tabletIndications: chronic heart failure Take 1 tablet by mouth 2 (two) times a day 60 tablet 2 5 Active sacubitriL-valsart an (Entresto) 24-26 mg tabletIndications: Ischemic cardiomyopathy Take 1 tablet by mouth 2 (two) times a day 60 tablet 4 07/20/19 25 Discontin ued(Thera py completed ) carvediloL (COREG) 6.25 mg tablet Take 1 tablet (6.25 mg total) by mouth 2 (two) times a day 180 tablet 2 07/20/19 25 Discontin ued(Thera py completed ) Active Problems Problem Noted Date Diagnosed Date Influenza A 04/09/2024 Essential hypertension 11/04/2022 Ischemic cardiomyopathy 02/14/2021 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 [address], [place] [address] Dileep Calixto MD Cardiac arrhythmia, unspecified cardiac arrhythmia type (Primary Dx); Ischemic cardiomyopathy 06/15/2024 Telephone [facility] [address] [place] [address] [place] [phone] Iraida Gray MD 06/14/2024 Telephone [facility] [address] [place] [address] [address] [place] [phone] Iraida rGay MD 06/14/2024 Results Follow-Up [facility] [address] [place] [address] [address] [place] [phone] Iraida Gray MD 06/11/2024 Telephone [facility] [address] [place] [address] [place] [phone] Iraida Gray MD 06/09/2024 1:00 PM BULLET ASSEMBLY PRESS OPERATOR Ancillary Procedure [facility] [address] [place] [address] [place] [phone] Coronary artery disease involving yankton coronary artery of yankton heart without angina pectoris; Ischemic cardiomyopathy; Essential hypertension 05/10/2024 9:15 AM BULLET ASSEMBLY PRESS OPERATOR Office Visit [facility] [address] [place] [address] [address] [place] [phone] Iraida Gray MD Coronary artery disease involving yankton coronary artery of yankton heart without angina pectoris (Primary Dx); Ischemic cardiomyopathy; Essential hypertension 05/07/2024 Telephone [facility] [address] [place] [address] Iraida Gray MD from Last 3 Months Medical History Medical History Date Comments Past heart attack Hx of angioplasty Stents/Angiopl asty Heart failure (HCC) Essential hypertension 11/04/2022 Family History Medical History Relation Name Comments Cancer Father [place] Diabetes Father [place] Hypertension Father [place] Stroke Father [place] HDL Mother [place] Hypertension Mother [place] Stroke Mother Chely Relation Name Status Comments Father [place] Alive Mother [place] Alive Social History Tobacco Use Types Packs/Day Years Used Date Smoking Tobacco: Never Smokeless Tobacco: Former Chew Tobacco Cessation:Counseling Given: Not Answered AUDIT-C Answer Date Recorded Q1: How often do you have a drink containing alc ohol? Monthly or less 04/09/2024 Q2: How many drinks containi ng alcohol do you have on a typical day when you are drinking? 1 or 2 04/09/2024 Q3: How often do you have si x or more drinks on one occasion? Never 04/09/2024 Personal Safety Answer Date Recorded Have you ever been in or are you currently in a harmful physical or emotional relationship or is someone making you feel afraid or unsafe? Denies 04/16/2024 Sex and Gender Information Value Date Recorded Sex Assigned at Not on file Legal Sex Male 4:10 AM BULLET ASSEMBLY PRESS OPERATOR Gender Identity Not on file Sexual Orientation Not on file Obstetrics History Last Filed Vital Signs Vital Sign Reading Time Taken Comments Blood Pressure 178/106 07/19/2024 1:52 PM CDT Pulse 92 07/19/2024 1:52 PM CDT Temperature 36 C (96.8 F) 04/16/2024 10:59 AM BULLET ASSEMBLY PRESS OPERATOR Respiratory Rate 22 04/16/2024 10:59 AM BULLET ASSEMBLY PRESS OPERATOR Oxygen Saturation 99% 05/10/2024 9:32 AM BULLET ASSEMBLY PRESS OPERATOR Inhaled Oxygen Concentration - - Weight 106.6 kg (235 lb) 07/19/2024 1:52 PM CDT Height 177.8 cm (5' 10 ) 07/19/2024 1:52 PM CDT Body Mass Index 33.72 07/19/2024 1:52 PM CDT Plan of Treatment Health Maintenance Due Date Last Done Comments Colon Cancer Screening-Colonoscopy 1973 Depression Screening 1973 Hepatitis C Screening 1973 Prostate Cancer Screening-PSA 1973 DTaP/Tdap/Td Vaccine (1 - Tdap) 02/19/1984 Hepatitis B Screening 1991 Regular Well Visit/Exam 18-64 1991 Pneumococcal vaccine <65 (1 of 2 - PCV) 02/19/1992 Zoster Vaccine (1 of 2) 2023 Influenza Vaccine (Season Ended) 2024 Procedures Procedure Name Priority Date/Time Associated Diagnosis Comments ECG 12-LEAD Routine 07/19/2024 1:54 PM CDT Cardiac arrhythmia, unspecified cardiac arrhythmia type TRANSTHORACIC ECHO (TTE) COMPLETE W DOPPLER/CF W CONTRAST Routine 06/09/2024 1:52 PM BULLET ASSEMBLY PRESS OPERATOR Coronary artery disease involving yankton coronary artery of yankton heart without angina pectoris Ischemic cardiomyopathy Essential hypertension POCT LIPID PANEL Routine 05/10/2024 10:1 6 AM BULLET ASSEMBLY PRESS OPERATOR Coronary artery disease involving yankton coronary artery of yankton heart without angina pectoris from Last 3 Months Results * ECG 12 lead (07/19/2024 1:54 PM CDT) us Dileep Calixto MD ECG ORDERABLES Final Re sult * TRANSTHORACIC ECHO (TTE) COMPLETE W DOPPLER/CF W CONTRAST (06/09/2024 1:52 PM BULLET ASSEMBLY PRESS OPERATOR) Anatomical Region Laterality Modality Ultrasound 06/09/2024 12:5 8 PM BULLET ASSEMBLY PRESS OPERATOR Narrative 06/09/2024 3:54 PM BULLET ASSEMBLY PRESS OPERATOR [facility] [address] [facility] [address], [place] [address] [address] [facility] [address], [place] [address] P:[phone] P:[phone] Echocardiographic Report Patient Name: DAWSON MONTAGUE L : 1975 Study Date: 06/09/2024 12:58:05 PM Gender: M Tech: SW Location: [place] Ref Provider: IRAIDA GRAY Height(Cm): 178 BSA: 2.28 Weight(Kg): 104.8 Heart Rate: 107 BP: 120 / 80 Quality: Good Order Provider: IRAIDA GRAY PROCEDURES: Echocardiographic Report: Transthoracic echocardiogram with complete 2D, M-Mode, color Doppler examination and Definity contrast. INDICATIONS: I25.10 Atherosclerotic heart disease of yankton coronary artery without angina pectoris, I25.5 Ischemic cardiomyopathy, and I10 Essential (primary) hypertension. MEASUREMENTS: 2D/MM Value Range Doppler Value Range EF Mod BP 16 % [ 52 - 72 ] AV Mean PG 3 mmHg EF Teich MM 33 % [ 52 - 72 ] AV Peak Manuel 1.07 m/s [ 1.00 - 1.70 ] LVIDd 2D 6.87 cm [ 4.20 - 5.80 ] AV Peak PG 5 mmHg LVIDd MM 8.22 cm [ 4.20 - 5.80 ] AV VTI 16.86 cm LVIDs 2D 6.57 cm [ 2.50 - 4.00 ] LVOT Peak Manuel 0.83 m/s [ 0.70 - 1.10 ] LVIDs MM 6.88 cm [ 2.50 - 4.00 ] LVOT VTI 13.47 cm LVPWd MM 1.23 cm [ 0.60 - 1.00 ] MV E Peak Manuel 0.79 m/s [ 0.60 - 1.30 ] IVSd 2D 1.15 cm [ 0.60 - 1.00 ] MV A Peak Manuel 1.00 m/s [ 1.00 - 1.20 ] IVSd MM 1.08 cm [ 0.60 - 1.00 ] MV Decel Time 72 msec [ 104 - 258 ] LA Dimension MM 4.49 cm [ 3.00 - 4.00 ] PV Peak Manuel 0.65 m/s [ 0.40 - 0.80 ] AoR Diam MM 4.38 cm [ 3.10 - 3.70 ] TR Peak Manuel 3.06 m/s [ 1.00 - 2.80 ] LA Volume Index 56 cc/m2 [ 16 - 34 ] TR Peak PG 37 mmHg RVSP 45.00 mmHg [ 10.00 - 36.00 ] Lateral E` 0.11 m/s [ 0.10 - 0.15 ] E` 0.09 m/s E/E` 7 2D/MM Value Range Doppler Value Range - FINDINGS: Interpretation Site: Exam was interpreted at [facility]. Left Ventricle: Definity contrast agent used to visually enhance endocardial wall motion and contractility. Lot Number: [id number]. Moderate concentric left ventricular hypertrophy. Severe enlargement of left ventricle cavity. Diastolic dysfunction is present. Ejection fraction is measured at 16 %. Right Ventricle: Normal right ventricular size. Mild right ventricular hypokinesis. Left Atrium: There is moderate enlargement of left atrium. Right Atrium: There is mild enlargement of right atrium. Atrial Septum: Normal atrial septum. Mitral Valve: Normal appearance of the mitral valve. Mild mitral valve regurgitation. Aortic Valve: Normal appearance of the aortic valve. No evidence of hemodynamically significant aortic stenosis by Doppler. Mild aortic valve regurgitation. Tricuspid Valve: Normal appearance of the tricuspid valve. Mild pulmonary hypertension based on right ventricular systolic pressure. Estimated peak RVSP is 42 mmHg. Trivial regurgitation in the tricuspid valve. Pulmonic Valve: Normal appearance of the pulmonic valve. Trivial regurgitation in the pulmonic valve. Pericardium: Normal pericardium with no significant pericardial effusion. Aorta: Normal aortic root. IVC: Normal size and normal respiratory collapse consistent with normal right atrial pressure (<5 mmHg). CONCLUSIONS: Definity contrast agent used. Moderate to severe LV enlargement. Moderate LVH. Severe global LV systolic dysfunction. Diastolic dysfunction is present. Ejection fraction is measured at 16 %. GLS not performed. Normal right ventricular size. Mild right ventricular hypokinesis. Moderate left and mild right atrial enlargement. Normal appearance of the mitral valve leaflets, however, there is mild malcoaptation of the commissures resulting in mild mitral valve regurgitation. Normal appearance of the aortic valve. No significant stenosis. Mild aortic valve regurgitation. Mild pulmonary hypertension, estimated RVSP 42 mmHg. Trivial regurgitation in the tricuspid valve. Electronically Signed By: Branden Benjamin MD, [facility] 06/09/2024 3:53:02 PM BULLET ASSEMBLY PRESS OPERATOR Procedure Note Branden Benjamin MD - 06/09/2024 [facility] Cardiology [address], [place] [address] [address], [place] [address] P:[phone] P:[phone] Echocardiographic Report Patient Name: DAWSON MONTAGUE L : 1975 Study Date: 06/09/2024 12:58:05 PM Gender: M Tech: Location: [facility] Provider: IRAIDA GRAY Height(Cm): 178 BSA: 2.28 Weight(Kg): 104.8 Heart Rate: 107 BP: 120 / 80 Quality: Good Order Provider: IRAIDA GRAY PROCEDURES: Echocardiographic Report: Transthoracic echocardiogram with complete 2D, M-Mode, color Dopplerexamination and Definity contrast. INDICATIONS: I25.10 Atherosclerotic heart disease of yankton coronary artery withoutangina pectoris, I25.5 Ischemic cardiomyopathy, and I10 Essential (primary) hypertension. MEASUREMENTS: 2D/MM Value Range Doppler ValueRange EF Mod BP 16 % [ 52 - 72 ] AV Mean PG 3mmHg EF Teich MM 33 % [ 52 - 72 ] AV Peak Manuel 1.07m/s [ 1.00 - 1.70 ] LVIDd 2D 6.87 cm [ 4.20 - 5.80 ] AV Peak PG 5mmHg LVIDd MM 8.22 cm [ 4.20 - 5.80 ] AV VTI 16.86cm LVIDs 2D 6.57 cm [ 2.50 - 4.00 ] LVOT Peak Manuel 0.83m/s [ 0.70 - 1.10 ] LVIDs MM 6.88 cm [ 2.50 - 4.00 ] LVOT VTI 13.47cm LVPWd MM 1.23 cm [ 0.60 - 1.00 ] MV E Peak Manuel 0.79m/s [ 0.60 - 1.30 ] IVSd 2D 1.15 cm [ 0.60 - 1.00 ] MV A Peak Manuel 1.00m/s [ 1.00 - 1.20 ] IVSd MM 1.08 cm [ 0.60 - 1.00 ] MV Decel Time 72 msec[ 104 - 258 ] LA Dimension MM 4.49 cm [ 3.00 - 4.00 ] PV Peak Manuel 0.65m/s [ 0.40 - 0.80 ] AoR Diam MM 4.38 cm [ 3.10 - 3.70 ] TR Peak Manuel 3.06m/s [ 1.00 - 2.80 ] LA Volume Index 56 cc/m2 [ 16 - 34 ] TR Peak PG 37mmHg RVSP 45.00 mmHg [ 10.00 - 36.00 ] Lateral E` 0.11 m/s [ 0.10 - 0.15 ] E` 0.09 m/s E/E` 7 2D/MM Value Range Doppler ValueRange - FINDINGS: Interpretation Site: Exam was interpreted at [facility]. Left Ventricle: Definity contrast agent used to visually enhance endocardial wall motionand contractility. Lot Number: [id number]. Moderate concentric left ventricularhypertrophy. Severe enlargement of left ventricle cavity. Diastolic dysfunction ispresent. Ejection fraction is measured at 16 %. Right Ventricle: Normal right ventricular size. Mild right ventricular hypokinesis. Left Atrium: There is moderate enlargement of left atrium. Right Atrium: There is mild enlargement of right atrium. Atrial Septum: Normal atrial septum. Mitral Valve: Normal appearance of the mitral valve. Mild mitral valve regurgitation. Aortic Valve: Normal appearance of the aortic valve. No evidence of hemodynamicallysignificant aortic stenosis by Doppler. Mild aortic valve regurgitation. Tricuspid Valve: Normal appearance of the tricuspid valve. Mild pulmonary hypertensionbased on right ventricular systolic pressure. Estimated peak RVSP is 42 mmHg. Trivialregurgitation in the tricuspid valve. Pulmonic Valve: Normal appearance of the pulmonic valve. Trivial regurgitation in thepulmonic valve. Pericardium: Normal pericardium with no significant pericardial effusion. Aorta: Normal aortic root. IVC: Normal size and normal respiratory collapse consistent with normal rightatrial pressure (<5 mmHg). CONCLUSIONS: Definity contrast agent used. Moderate to severe LV enlargement. ModerateLVH. Severe global LV systolic dysfunction. Diastolic dysfunction is present. Ejectionfraction is measured at 16 %. GLS not performed. Normal right ventricular size. Mild right ventricular hypokinesis.Moderate left and mild right atrial enlargement. Normal appearance of the mitral valve leaflets, however, there is mildmalcoaptation of the commissures resulting in mild mitral valve regurgitation. Normal appearance of the aortic valve. No significant stenosis. Mildaortic valve regurgitation. Mild pulmonary hypertension, estimated RVSP 42 mmHg. Trivial regurgitationin the tricuspid valve. Electronically Signed By: Branden Benjamin MD, [facility] 06/09/2024 3:53:02 PM BULLET ASSEMBLY PRESS OPERATOR Iraida Gray MD CV ECHO PROCEDURES F inal Result * POCT lipid panel (05/10/2024 10:16 AM BULLET ASSEMBLY PRESS OPERATOR) [facility] Cholesterol, POC 124 mg/dL Comment:GLU = 129 HDL, POC 28 mg/dL Triglycerides, POC 76 mg/dL LDL Cholesterol POC 81 mg/dL Chol/HDL Ratio, POC 2.9 Non-HDL Cholesterol, POC 96 mg/dL Cholesterol Total, POC 124 mg/dL Capillary blood 05/10/2024 1 0:16 AM BULLET ASSEMBLY PRESS OPERATOR Iraida Gray MD POINT OF CARE TEST O RDERABLES Final Result from Last 3 Months Insurance [facility]PP[facility] Address: [address] [address] [place] [address] Advance Directives For more information, please contact: [phone] * Full Code (Latest Code Status on File) Date Activated Date Inactivated Comments 04/09/2024 12:01 PM 04/13/2024 6:31 PM Care Teams Corporate Recycling Manager Relationship Specialty Start Date End Date Dave Jorgensen MD PCP - General Internal Medicine 02/14/21 Iraida Gray MD [facility] [place] [address] [place] [address] Consulting Physician Cardiology 04/13/24
--- OUTSIDE RECORDS SUMMARY | 2024-07-30 17:18 | XMS_ITS | Clinical Summary ---
Author Organization [facility] Address [address] [place] [address] Phone Care Team Providers Care Rn Referral Name Role Phone Provider, None Primary Care Provider Unavailabl e Allergies No known active allergies Social History Tobacco Use Types Packs/Day Years Used Date Smoking Tobacco: Never Assessed Sex and Gender Information Value Date Recorded Sex Assigned at Not on file Legal Sex Male 12:27 AM CDT Gender Identity Not on file Sexual Orientation Not on file Last Filed Vital Signs Vital Sign Reading Time Taken Comments Blood Pressure 147/97 06/26/2020 10:30 PM CDT Pulse 85 06/26/2020 10:30 PM CDT Temperature 36.9 C (98.4 F) 06/26/2020 7:14 PM CDT Respiratory Rate 24 06/26/2020 10:30 PM CDT Oxygen Saturation 96% 06/26/2020 10:30 PM CDT Inhaled Oxygen Concentration - - Weight 111.1 kg (245 lb) 06/26/2020 7:14 PM CDT Height 177.8 cm (5' 10 ) 06/26/2020 7:14 PM CDT Body Mass Index 35.15 06/26/2020 7:14 PM CDT Plan of Treatment Health Maintenance Due Date Last Done Comments Hepatitis C Virus (HCV) Screening 1975 TdaP Immunization 1975 Hepatitis B Immunization (1 of 3 - 19+ 3-dose series) 02/19/1992 Colonoscopy 2018 Colorectal Cancer Screening 2018 Cologuard 2023 Immunochemical Fecal Occult Blood 2023 Pneumococcal Immunization (5 0+ years) (1 of 1 - PCV) 2023 Zoster Immunization (1 of 2) 2023 Influenza Immunization (#1) 2023 SARS-COV-2 Immunization ( season) 2023 Respiratory Syncytial Virus (RSV) Immunization (Adult) (1 - 1-dose 75+ series) 02/19/2048 Meningococcal Immunization (ACWY) Aged Out No longer eligible based on patient's age to complete this topic Rotavirus Immunization Aged Out No lo nger eligible based on patient's age to complete this topic Insurance [facility] COMMERCIAL GENERIC COMMERCIAL GENERIC Care Teams Rn Referral Relationship Specialty Start Date End Date Provider, [facility] PCP - General 06/26/20
--- OUTSIDE RECORDS SUMMARY | 2024-07-30 17:18 | XMS_ITS | Clinical Summary ---
Author Organization [facility] Address [address] [place] [address] Care Team Providers Care Poultry Scientist Name Role Phone Dave Jorgensen MD Primary Care Provider [phone] Allergies No known active allergies Medications amLODIPine (NORVASC) 5 MG tablet Take 1 tablet (5 mg total) by mouth every morning. 2 Active ASPIRIN LOW DOSE 81 MG tablet Take 1 tablet (81 mg total) by mouth every morning. 2 Active atorvastatin (LIPITOR) 80 MG tablet Take 1 tablet (80 mg total) by mouth nightly at bedtime. 2 Active carvedilol (COREG) 6.25 MG tablet Take 1 tablet (6.25 mg total) by mouth 2 (two) times daily. 2 Active clopidogrel (PLAVIX) 75 MG tablet Take 1 tablet (75 mg total) by mouth daily. 2 Active FLUoxetine (PROZAC) 20 MG capsule Take 1 capsule (20 mg total) by mouth every morning. 3 Active furosemide (LASIX) 40 MG tablet Take 1 tablet (40 mg total) by mouth daily. 2 Active ENTRESTO 24-26 MG tablet Take 1 tablet by mouth 2 (two) times daily. 2 Active spironolactone (ALDACTONE) 25 MG tablet Take 1 tablet (25 mg total) by mouth daily. 2 Active HYDROcodone-isaac taminophen (NORCO) 5-325 MG tabletIndicatio ns:Acute Pain < 7 Day Supply Take 1 tablet by mouth every 6 (six) hours as needed for Pain. Indications: Acute Pain < 7 Day Supply 15 tablet Active Additional Information Patient not taking.Reported on 10/01/2022 Active Problems Problem Noted Date Diagnosed Date Meniscal cyst, right 07/16/2022 Other tear of medial meniscu s of right knee as current injury, subsequent encounter 06/12/2022 Primary osteoarthritis of right knee 06/02/2022 Family History Medical History Relation Comments Heart Disease Father Heart Disease Mother Relation Status Comments Father Alive Mother Alive Social History Tobacco Use Types Packs/Day Years Used Date Smoking Tobacco: Never Smokeless Tobacco: Current Chew Tobacco Cessation:Ready to Q uit: Not Asked; Counseling Given: Not Answered Alcohol Use Standard Drinks/Week Comments Yes 0 (1 standard drink = 0.6 oz pur e alcohol) Sex and Gender Information Value Date Recorded Sex Assigned at Not on file Legal Sex Male 4:57 PM CDT Gender Identity Not on file Sexual Orientation Not on file Last Filed Vital Signs Vital Sign Reading Time Taken Comments Blood Pressure 127/70 09/04/2022 1:20 PM CDT Pulse 65 09/04/2022 1:20 PM CDT Temperature 36.2 C (97.2 F) 09/04/2022 1:20 PM CDT Respiratory Rate 16 09/04/2022 1:20 PM CDT Oxygen Saturation 94% 09/04/2022 1:20 PM CDT Inhaled Oxygen Concentration - - Weight 106.6 kg (235 lb) 10/01/2022 3:31 PM CDT Height 177.8 cm (5' 10 ) 10/01/2022 3:31 PM CDT Body Mass Index 33.72 10/01/2022 3:31 PM CDT Plan of Treatment Health Maintenance Due Date Last Done Comments Colorectal Cancer Screening Colonoscopy (10 Years) 1973 Annual Physical 02/19/1976 Hepatitis C 1991 DTaP, Tdap and Td Vaccines ( 1 - Tdap) 02/19/1992 Hepatitis B Vaccines (1 of 3 - 19+ 3-dose series) 02/19/1992 Pneumococcal Vaccine: 50+ Ye ars (1 of 1 - PCV) 2023 Zoster Vaccines (1 of 2) 2023 COVID-19 Vaccine ( - 2023-2 5 season) 2023 Meningococcal B Vaccine Aged Out No l onger eligible based on patient's age to complete this topic Meningococcal Vaccine Aged Out No deyvi renato eligible based on patient's age to complete this topic RSV Immunizations Under 20 Months Aged Out No longer eligible based on patient's age to complete this topic Insurance [facility] Care Teams Poultry Scientist Relationship Specialty Start Date End Date Dave Jorgensen MD [address] [place] [address] PCP - General INTERNAL MEDICINE 05/20/22
--- OUTSIDE RECORDS SUMMARY | 2024-07-30 17:18 | XMS_ITS | Encounter Summary ---
Author Organization [facility] Address [address] [place] [address] Care Team Providers Care Paper Cutting Machine Operator Name Role Phone Dave Jorgensen MD Primary Care Provider [phone] Encounter Details Date Type Department Care Team (Late st Contact Info) Description 09/19/2018 Abstract [facility] CONVERSION [address] [place] [address] , Generic ConversionMD Social History Tobacco Use Types Packs/Day Years Used Date Smoking Tobacco: Never Assessed Sex and Gender Information Value Date Recorded Sex Assigned at Not on file Legal Sex Male 4:57 PM CDT Gender Identity Not on file Sexual Orientation Not on file documented as of this encounter Plan of Treatment Not on file documented as of this encounter Visit Diagnoses Not on filedocumented in this encounter Care Teams Paper Cutting Machine Operator Relationship Specialty Start Date End Date Dave Jorgensen MD [address] [place] [address] PCP - General INTERNAL MEDICINE 05/20/22 documented as of this encounter
--- OUTSIDE RECORDS SUMMARY | 2024-07-30 17:18 | XMS_ITS | Referral Summary ---
Author Organization [facility] Address [address] [place] [address] Care Team Providers Care Transmission And Coordination Engineer Name Role Phone Dave Jorgensen MD Primary Care Provider [phone] Antonio Gary MD Unavailable [phone] Encounters Date Type Department Care Team Description 07/19/2024 1:00 PM CDT Office Visit Arrhythmia Center [facility] [address] [address] Dileep Calixto MD Cardiac arrhythmia, unspecified cardiac arrhythmia type (Primary Dx); Ischemic cardiomyopathy 06/15/2024 Telephone [facility] Cardiology [address] [facility] [address] [place] [phone] Antonio Gray MD 06/14/2024 Telephone [facility] Cardiology [address] [facility] [address] [place] [phone] Antonio Gray MD 06/14/2024 Results Follow-Up [facility] Cardiology [address] [place] [phone] Antonio Gray MD 06/11/2024 Telephone [facility] Medical [facility] Cardiology [address] [facility] [address] [place] [phone] Antonio Gray MD 06/09/2024 1:00 PM DIRECTOR OF GLOBAL SALES Ancillary Procedure [facility] Cardiology [address] [facility] [address] [place] [phone] Coronary artery disease involving [place] coronary artery of [place] heart without angina pectoris; Ischemic cardiomyopathy; Essential hypertension 05/10/2024 9:15 AM DIRECTOR OF GLOBAL SALES Office Visit [facility] Medical [facility] Cardiology [address] [place] [phone] Antonio Gray MD Coronary artery disease involving [place] coronary artery of [place] heart without angina pectoris (Primary Dx); Ischemic cardiomyopathy; Essential hypertension 05/07/2024 Telephone [facility] Cardiology [address] [place] [phone] Antonio Gray MD from Last 3 Months Allergies No known active allergies Medications aspirin [...] (two) times a day 180 tablet 2 5 07/20/19 25 Discontin ued(Thera py completed ) Active Problems Problem Noted Date Diagnosed Date Influenza A 04/09/2024 Essential hypertension 11/04/2022 Ischemic cardiomyopathy 02/14/2021 Coronary artery disease invo lving [place] coronary artery of [place] heart without angina pectoris 02/14/2021 Resolved Problems Problem Noted Date Diagnosed Date Resolved Date 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 11/04/2022 11/04/2022 Social History Tobacco Use Types Packs/Day Years [...] on file Legal Sex Male 4:10 AM DIRECTOR OF GLOBAL SALES Gender Identity Not on file Sexual Orientation Not on file Last Filed Vital Signs Vital Sign Reading Time Taken Comments Blood Pressure 178/106 07/19/2024 1:52 PM CDT Pulse 92 07/19/2024 1:52 PM CDT Temperature 36 C (96.8 F) 04/16/2024 10:59 AM DIRECTOR OF GLOBAL SALES Respiratory Rate 22 04/16/2024 10:59 AM DIRECTOR OF GLOBAL SALES Oxygen Saturation 99% 05/10/2024 9:32 AM DIRECTOR OF GLOBAL SALES Inhaled Oxygen Concentration - - Weight 106.6 kg (235 lb) 07/19/2024 1:52 PM CDT Height 177.8 cm (5' 10 ) 07/19/2024 1:52 PM CDT Body Mass Index 33.72 07/19/2024 1:52 PM CDT Plan of Treatment Not on file Procedures Procedure Name Priority Date/Time Associated Diagnosis Comments ECG 12-LEAD Routine 07/19/2024 1:54 PM CDT Cardiac arrhythmia, unspecified cardiac arrhythmia type TRANSTHORACIC ECHO (TTE) COMPLETE W DOPPLER/CF W CONTRAST Routine 06/09/2024 1:52 PM DIRECTOR OF GLOBAL SALES Coronary artery disease involving [place] coronary artery of [place] heart without angina pectoris Ischemic cardiomyopathy Essential hypertension POCT LIPID PANEL Routine 05/10/2024 10:1 6 AM DIRECTOR OF GLOBAL SALES Coronary artery disease involving [place] coronary artery of [place] heart without angina pectoris from Last 3 Months Results * ECG 12 lead (07/19/2024 1:54 PM CDT) us Dileep Calixto MD ECG ORDERABLES Final Re sult * TRANSTHORACIC ECHO (TTE) COMPLETE W DOPPLER/CF W CONTRAST (06/09/2024 1:52 PM DIRECTOR OF GLOBAL SALES) Anatomical Region Laterality Modality Ultrasound 06/09/2024 12:5 8 PM DIRECTOR OF GLOBAL SALES Narrative 06/09/2024 3:54 PM DIRECTOR OF GLOBAL SALES [facility] Medical Group Cardiology [address] [facility] [address] [address] [address] [facility] [address], [place] [address] P:[phone] P:[phone] Echocardiographic Report Patient Name: CHELE MONTAGUE L : 1975 Study Date: 06/09/2024 12:58:05 PM Gender: M Tech: Location: [facility] Provider: ANTONIO GRAY Height(Cm): 178 BSA: 2.28 Weight(Kg): 104.8 Heart Rate: 107 BP: 120 / 80 Quality: Good Order Provider: ANTONIO GRAY PROCEDURES: Echocardiographic Report: Transthoracic echocardiogram with complete 2D, M-Mode, color Doppler examination and Definity contrast. INDICATIONS: I25.10 Atherosclerotic heart disease of [place] coronary artery without angina pectoris, I25.5 Ischemic [...] FINDINGS: Interpretation Site: Exam was interpreted at [facility]. Left Ventricle: Definity contrast agent used to [...] valve. Electronically Signed By: Branden Benjamin MD, [facility] 06/09/2024 3:53:02 PM DIRECTOR OF GLOBAL SALES Procedure Note Branden Benjamin MD - 06/09/2024 [facility] Medical [facility] Cardiology [address] [facility] [address] [id number] [address] [facility] [address] [address] P:[phone] P:[phone] Echocardiographic Report Patient Name: CHELE MONTAGUE L : 1975 Study Date: 06/09/2024 12:58:05 PM Gender: M Tech: [facility] Provider: ANTONIO GRAY Height(Cm): 178 BSA: 2.28 Weight(Kg): 104.8 Heart Rate: 107 BP: 120 / 80 Quality: Good Order Provider: GRAY,JAREER PROCEDURES: Echocardiographic Report: Transthoracic echocardiogram with complete 2D, M-Mode, color Dopplerexamination and Definity contrast. INDICATIONS: I25.10 Atherosclerotic heart disease of [place] coronary artery withoutangina pectoris, I25.5 Ischemic cardiomyopathy, [...] FINDINGS: Interpretation Site: Exam was interpreted at [facility]. Left Ventricle: Definity contrast agent used to [...] valve. Electronically Signed By: Branden Benjamin MD, FACC 06/09/2024 3:53:02 PM DIRECTOR OF GLOBAL SALES us Antonio Gray MD CV ECHO PROCEDURES F inal Result * POCT lipid panel (05/10/2024 10:16 AM DIRECTOR OF GLOBAL SALES) Cholesterol, POC 124 mg/dL Comment:GLU = 129 HDL, POC 28 mg/dL Triglycerides, POC 76 mg/dL LDL Cholesterol POC 81 mg/dL Chol/HDL Ratio, POC 2.9 Non-HDL Cholesterol, POC 96 mg/dL Cholesterol Total, POC 124 mg/dL Capillary blood 05/10/2024 1 0:16 AM DIRECTOR OF GLOBAL SALES us Antonio Gray MD POINT OF CARE TEST O RDERABLES Final Result from Last 3 Months Insurance [employer] HMO/PPO Address: [address] [address] [place] [address] Advance Directives For more information, please contact: [phone] * Full Code (Latest Code Status on File) Date Activated Date Inactivated Comments 04/09/2024 12:01 PM 04/13/2024 6:31 PM Care Teams Transmission And Coordination Engineer Relationship Specialty Start Date End Date Dave Jorgensen MD PCP - General Internal Medicine 02/14/21 Antonio Gray MD [address] [address] Consulting Physician Cardiology 04/13/24
--- OUTSIDE RECORDS SUMMARY | 2024-07-30 17:18 | XMS_ITS | Encounter Summary ---
Author Organization [facility] Healthcare Address [address] [place] [address] Care Team Providers Care Wage Adjuster Name Role Phone Dave Jorgensen MD Primary Care Provider [phone] Antonio Gray MD Unavailable [phone] Encounter Details Date Type Department Care Team (Late st Contact Info) Description 06/14/2024 Results Follow-Up 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
[2024-07-30 17:26] VITALS: BP 146/108; PULSE 108; RESP 18; TEMP 36.3; O2SAT 98
--- NOTE | 2024-07-30 17:39 | ED.DENTAL ---
HPI - Dental/Oral General Chief complaint: Dental/Oral Stated complaint: Tooth Pain Time Seen by Provider: 07/30/24 17:40 Source: patient, RN notes reviewed and old records reviewed Mode of arrival: ambulatory Limitations: no limitations History of Present Illness HPI Narrative: 49 year old male who presents to [facility] care with complaints of dental pain to the right bottom molar #30 for the past 2 weeks. Patient reports that he has broken tooth and has had some right sided facial swelling near tooth area and has noted redness and swelling of gum and white patch area to outer gum area of affected tooth. Patient reports that he has taken some Tylenol for his discomfort. Patient reports that he does not have a dentist. MD Complaint: tooth pain (swelling of face and gum) Location: Tooth # (#30) Onset (ago): week(s) (2 weeks) Severity scale (1-10): 2 Treatment prior to arrival: oral analgesic (Tylenol) Related Data Home Medications ?Medication ?Instructions ?Recorded ?Confirmed ?Last Taken ?Type atorvastatin 40 mg tablet 80 mg PO DAILY 02/03/22 08/10/22 Unknown History fluoxetine 20 mg capsule 20 mg PO DAILY 02/19/23 Unknown History carvedilol 12.5 mg tablet mg 07/30/24 Unknown History sacubitril 49 mg-valsartan 51 mg tablet 07/30/24 Unknown History tablet (Entresto) Allergies Allergy/AdvReac Type Severity Reaction Status Date / Time No Known Allergies Allergy Verified 07/30/24 17:28 Review of Systems Review of Systems: CONSTITUTIONAL: Denies fever, chills, or sweats. ENT: Denies rhinorrhea, congestion, sore throat, or otalgia. Reports dental pain to #30 tooth with white area on outer gum region and some swelling of face on right side, tooth noted to have broken area with caries. CARDIOVASCULAR: Denies chest pain, palpitations, or edema. RESPIRATORY: Denies cough or dyspnea. SKIN: Denies rash or itching. MUSCULOSKELETAL: Denies myalgia. NEUROLOGIC: Denies headache All systems reviewed & are unremarkable except as noted in HPI and below [facility] Past Medical History Medical History CHF (congestive heart failure) Ischemic cardiomyopathy ST elevation (STEMI) myocardial infarction (01/2021) Coronary artery disease Substance abuse Tobacco abuse Hypertension Surgical History Surgical History History of right knee surgery History of hernia repair Family History Family History Mother Thyroid disease TIA (transient ischemic attack) Father Diabetes mellitus Cancer Other Family history of premature coronary heart disease Social History Social History Social History: Surrogate medical decision maker: Ashanti Roberts, spouse. Code status: Full code. Tobacco type: smokeless tobacco Smokeless tobacco user: chewing tobacco Alcohol intake: current Drinks per week: 1 Alcohol use details: Social alcohol use in moderation. Substance use: former Substance use type: crack/cocaine Lack of Transportation: No Lack of Food: Never True Current Housing: I Have Housing Concerned About Future Housing: No Difficulty Paying Gas/Electric Bills: No Difficulty Paying for Meds: No Currently Unemployed: YES Education: High School Diploma/GED Difficulty w/ Childcare or Family Care: No Living arrangements: with family Gender identity (if verbalized by the patient): Male Spiritual care concerns: No Comments At time of signature, agree with nursing past medical, surgical, social and family history. There is no relevant family history pertinent to the presenting complaint Exam Narrative: GENERAL: Well-appearing, well-nourished, and in no acute distress. HEAD: Normocephalic, atraumatic. EYES: PERRLA and EOMI. ENT: Nares clear, no rhinorrhea or epistaxis. Mucous membranes moist. Missing teeth, broken teeth, caries, pain to #30 tooth with tooth broken with obvious caries, swelling and redness of gum around tooth with white looking tissue noted on outer aspect of gum of affected tooth, no trismus or and Meng angina. NECK: Supple. no lymphadenopathy CHEST: Clear to auscultation. No respiratory distress.SAO2 98% on room air HEART: Regular rate and rhythm. No murmur heard. Normal peripheral pulses. SKIN: Warm, dry, no rash. NEURO: No focal deficits. Alert and oriented x3. Course Course Emergency Course: Patient is aware of diagnosis, understands and agrees to treatment plan. Anticipatory guidance given. Patient agrees to follow-up as directed and is aware of reasons to seek care at the emergency department. Portions of this record may have been created with voice recognition software Level of Care: Express Care Visit Vital Signs Vital signs: Vital Signs Temperature 36.3 C L 07/30/24 17:26 Pulse Rate 108 H 07/30/24 17:26 Respiratory Rate 18 07/30/24 17:26 Blood Pressure 146/108 H 07/30/24 17:26 Pulse Oximetry 98 07/30/24 17:26 Oxygen Delivery Room Air 07/30/24 17:26 Temperature 36.3 C L 07/30/24 17:26 Pulse Rate 108 H 07/30/24 17:26 Respiratory Rate 18 07/30/24 17:26 Blood Pressure 146/108 H 07/30/24 17:26 Pulse Oximetry 98 07/30/24 17:26 Oxygen Delivery Room Air 07/30/24 17:26 reviewed MDM - Dental/Oral MDM Narrative Medical decision making narrative: Patients pain and complaint coupled with physical findings are consistent with dentalgia. There are no focal signs of space occupying lesions that are compromising to the airway; no dysphagia, odynophagia, dysphonia, or dyspnea. No uvular deviation or soft palate edema. Patient is non-toxic appearing. The floor of the mouth is soft with no signs of Meng's Angina; no induration below mandible, no neck pain.? Patient is without trismus or drooling and able to swallow secretions.? Patient is felt appropriate for discharge home with dental follow up. Differential Diagnosis Differential diagnosis: Likely gingival abscess, dental caries, dental abscess, fracture of tooth and other (dentalgia) Medical Records Attestation: I reviewed the patient's medical records. Critical Care Time Critical Care Time Critical Care Time: No Discharge Plan Discharge Clinical Impression: Abscess, dental, Pain, dental Patient Disposition: Home Condition: Stable Instructions: Antibiotic Form, Dental Abscess (ED), Toothache (ED) Additional Instructions: Avoid temperature extremes May apply heat or ice to the face Gentle brushing and flossing Antibiotic as directed Tylenol for lesser pain Use ibuprofen regularly Follow-up with the dentist as soon as possible--see the list provided If your symptoms persist, change or worsen significantly before you can contact your personal physician then please, without delay, go to the emergency department for further evaluation. Follow-up with PCP in 7-10 days or sooner if needed Follow up with PCP soon in regards to your blood pressure which is elevated above threshold for referral. Blood pressure above 120/80 may indicate pre-hypertension. 146/108 Peridex mouthwash use as ordered Patient Language: Bolivian Prescriptions: New amoxicillin-pot clavulanate 875-125 mg tablet 1 tablet PO Q12H Qty: 20 0RF Rx Instructions: take all doses of oral antibiotic chlorhexidine gluconate [Peridex] 0.12 % mouthwash 15 ml mucous membrane BID Qty: 473 0RF No Action carvedilol 12.5 mg tablet Entresto 49-51 mg tablet atorvastatin 40 mg tablet 80 mg PO DAILY fluoxetine 20 mg Capsule 20 mg PO DAILY carvedilol [Coreg] 6.25 mg Tablet 6.25 mg PO Q12HR 30 Days Qty: 60 3RF amlodipine [Norvasc] 5 mg Tablet 5 mg PO QAM 30 Days Qty: 30 3RF aspirin 81 mg Tablet,Delayed Release (Dr/Ec) 81 mg PO QAM 30 Days Qty: 30 3RF furosemide 40 mg tablet 40 mg PO DAILY Qty: 30 3RF Follow-up/Referrals: Dave Jorgensen MD [Primary Care Provider] - Stand Alone Forms: Work/School Release IP Time of Disposition: 17:58 Quality [place] Coma Scale Eyes: Open Verbal: Oriented and Alert Motor: Follows Commands [place] Coma Total Score: 15
== END 2024-07-30 18:03 | disposition home or self-care (01) ==
PROVIDERS: Emergency Provider Registered Nurse; PCP Internal Medicine
DX: K04.7 Periapical abscess without sinus (principal); I11.0 Hypertensive heart disease with heart failure; I50.9 Heart failure, unspecified; I25.2 Old myocardial infarction; Z79.899 Other long term (current) drug therapy
CPT/HCPCS: 99213; G0463